=== PATIENT | female | born 1940 | race African-American/Black ===

== ENCOUNTER 2020-03-01 10:37 | Inpatient (IN) | payer MEDICARE, OTHER ==
[~2020-03-01] VITALS: Ht 170.2 cm; Wt 53.5 kg
[2020-03-01] VITALS (7 sets, daily range): BP systolic 99–150; BP diastolic 60–79
--- NOTE | 2020-03-01 10:37 | NUR ---
called dr walton regarding patient . dr boykin spoke to the primary md
--- NOTE | 2020-03-01 10:45 | NUR ---
ED Nurse Note: pt brought into ED from [facility] via RA 68 for AMS since this morning. Per EMS, pt had seizure en route lasting about 20 seconds. no medication were given en route. Blood glucose reads "HI" at scene.
--- NOTE | 2020-03-01 10:51 | Emergency Room Report ---
History of Present Illness General Chief Complaint: Altered Mental Status Source: Medical Record, EMS Present Illness HPI This patient is brought in from a halfway facility for being more altered than usual. She has a history of multiple chronic medical problems to include diabetes, malnutrition, failure to thrive, muscle wasting, nonambulatory , schizophrenia, coronary artery disease, deep venous thromboses, COPD and encephalopathy. The patient is unable to give any type of history. Allergies: Coded Allergies: No Known Allergies (Unverified , 03/01/20) COVID-19 Screening Contact w/high risk pt: No Recent Travel to affected area: No Experienced COVID-19 symptoms?: No Patient History Past Medical History: see triage record, old chart reviewed, DM, HTN, ME, CAD, COPD, GERD, CVA/TIA, dementia, psych hx - schizophrenia Social History: Denies: smoking, alcohol use, drug use Now: No Reviewed Nursing Documentation: PMH: Agreed; PSxH: Agreed Nursing Documentation-PMH Past Medical History: No History, Except For Hx Diabetes: Yes Review of Systems All Other Systems: negative except mentioned in HPI Physical Exam Vital Signs Date Time Temp Pulse Resp B/P (MAP) Pulse Ox O2 Delivery O2 Flow Rate FiO2 03/01/20 10:31 97.2 100 16 127/107 (114) 97 Room Air Sp02 EP Interpretation: reviewed, normal General Appearance: no apparent distress, alert, GCS 15, non-toxic, cachetic, other - elderly, cachectic, Chronically Ill Head: normocephalic, atraumatic Eyes: bilateral eye normal inspection ENT: no angioedema, other - grossly normal Neck: normal inspection, full range of motion Respiratory: chest non-tender, lungs clear, normal breath sounds, no respiratory distress, no retraction, no accessory muscle use, speaking full sentences Cardiovascular #1: regular rate, rhythm, no edema Gastrointestinal: normal bowel sounds, non tender, soft, non-distended, no guarding, no rebound Rectal: deferred Musculoskeletal: back normal, normal range of motion, calf tenderness, gait/ station normal, non-tender Neurologic: alert, responsive, other - Unsure of baseline. Psychiatric: mood/affect normal Skin: no rash, Decubitus/Ulcer - See RN skin exam Medical Decision Making Diagnostic Impression: Primary Impression: Altered mental status Additional Impressions: Hyperglycemic crisis due to diabetes mellitus Renal failure Pyelonephritis Coffee ground emesis ER Course This patient is found to be profoundly hyperglycemic. She also has pyelonephritis. She meets criteria for severe sepsis. She was given broad- spectrum antibiotics and aggressive IV fluid resuscitation. She had significant improvement in her blood sugar with aggressive hydration. She will be admitted to the ICU stepdown. She is also in COVID-19 precautions/droplet precautions given that she resides in a halfway facility which makes her high risk for this infection. This patient was evaluated in the context of the global COVID-19 pandemic, which necessitated consideration that the patient might be at risk for infection with the [id number]-4 virus that causes COVID-19. Institutional protocols and algorithms that pertain to the evaluation of patients at risk for COVID-19 and the state of rapid change based on information released by multiple regulatory bodies including the CDC and federal and state organizations. These policies and algorithms were followed during the patient' s care in the ED. This patient is critically ill. This patient required complex medical decision- making, aggressive intervention, extensive laboratory workup and monitoring. Critical care time: 40 minutes. Laboratory Tests Test 03/01/20 11:00 03/01/20 11:10 03/01/20 12:30 White Blood Count 18.7 K/UL (4.8-10.8) H Red Blood Count 6.08 M/UL (4.20-5.40) H Hemoglobin 16.3 G/DL (12.0-16.0) H Hematocrit 51.4 % (37.0-47.0) H Mean Corpuscular Volume 85 FL (80-99) Mean Corpuscular Hemoglobin 26.8 PG (27.0-31.0) L Mean Corpuscular Hemoglobin Concent 31.7 G/DL (32.0-36.0) L Red Cell Distribution Width 13.5 % (11.6-14.8) Platelet Count 273 K/UL (150-450) Mean Platelet Volume 9.1 FL (6.5-10.1) Neutrophils (%) (Auto) % (45.0-75.0) Lymphocytes (%) (Auto) % (20.0-45.0) Monocytes (%) (Auto) % (1.0-10.0) Eosinophils (%) (Auto) % (0.0-3.0) Basophils (%) (Auto) % (0.0-2.0) Differential Total Cells Counted 100 Neutrophils % (Manual) 82 % (45-75) H Lymphocytes % (Manual) 10 % (20-45) L Monocytes % (Manual) 8 % (1-10) Eosinophils % (Manual) 0 % (0-3) Basophils % (Manual) 0 % (0-2) Band Neutrophils 0 % (0-8) Platelet Estimate Adequate Platelet Morphology Normal Hypochromasia 1+ Sodium Level 143 MMOL/L (136-145) Potassium Level 5.0 MMOL/L (3.5-5.1) Chloride Level 101 MMOL/L (98-107) Carbon Dioxide Level 20 MMOL/L (21-32) L Anion Gap 22 mmol/L (5-15) H Blood Urea Nitrogen 63 mg/dL (7-18) H Creatinine 1.9 MG/DL (0.55-1.30) H Estimated Glomerular Filtration Rate 30.8 mL/min (>60) Glucose Level 861 MG/DL (74-106) *H Lactic Acid Level 5.10 mmol/L (0.4-2.0) H 3.00 mmol/L (0.66-2.22) H Calcium Level 9.6 MG/DL (8.5-10.1) Total Bilirubin 0.8 MG/DL (0.2-1.0) Aspartate Amino Transferase (AST) 31 U/L (15-37) Alanine Aminotransferase (ALT) 22 U/L (12-78) Alkaline Phosphatase 128 U/L (46-116) H Total Creatine Kinase 137 U/L (26-308) Creatine Kinase MB 0.7 NG/ML (0.0-3.6) Creatine Kinase MB Relative Index 0.5 Troponin I 0.000 ng/mL (0.000-0.056) Total Protein 8.9 G/DL (6.4-8.2) H Albumin 3.8 G/DL (3.4-5.0) Globulin 5.1 g/dL Albumin/Globulin Ratio 0.7 (1.0-2.7) L Urine Color Pale yellow Urine Appearance Cloudy Urine pH 5 (4.5-8.0) Urine Specific [place] 1.010 (1.005-1.035) Urine Protein 2+ (NEGATIVE) H Urine Glucose (UA) 4+ (NEGATIVE) H Urine Ketones 3+ (NEGATIVE) H Urine Blood 1+ (NEGATIVE) H Urine Nitrite Negative (NEGATIVE) Urine Bilirubin Negative (NEGATIVE) Urine Urobilinogen Normal MG/DL (0.0-1.0) Urine Leukocyte Esterase 3+ (NEGATIVE) H Urine RBC 20-30 /HPF (0 - 2) H Urine WBC Tntc /HPF (0 - 2) H Urine Squamous Epithelial Cells Few /LPF (NONE/OCC) Urine Bacteria Many /HPF (NONE) H EKG Diagnostic Results Rate: normal Rhythm: NSR ST Segments: other - NSST Rhythm Strip Diag. Results EP Interpretation: yes Rate: 90 Rhythm: NSR, no PVC's, no ectopy Chest X-Ray Diagnostic Results Chest X-Ray Diagnostic Results : Chest X-Ray Ordered: Yes # of Views/Limited/Complete: 1 View Indication: Chest Pain EP Interpretation: Yes Interpretation: no consolidation, no effusion, no pneumothorax, no acute cardiopulmonary disease Impression: No acute disease Electronically Signed by: Ashley Valenzuela DO Last Vital Signs Date Time Temp Pulse Resp B/P (MAP) Pulse Ox O2 Delivery O2 Flow Rate FiO2 03/01/20 10:31 97.2 100 16 127/107 (114) 97 Room Air Disposition: ADMITTED INPATIENT Condition: Critical Ashley Valenzuela DO Mar 01, 2020 10:51
[2020-03-01] MEDS ORDERED: ABILIFY2 MG ORAL (10:59)
[2020-03-01] MEDS ORDERED: MULTI-VITAMIN1 EACH PO (11:09)
[2020-03-01] MEDS ORDERED: LEVOTHYROXINE125 MCG ORAL (11:09)
[2020-03-01] MEDS ORDERED: MIRTAZAPINE7.5 MG ORAL (11:09)
[2020-03-01] MEDS ORDERED: PROBIOTIC1 EAC4 PO (11:09)
[2020-03-01] MEDS ORDERED: JANUVIA25 MG ORAL (11:09)
[2020-03-01] MEDS ORDERED: LOVENOX10 M4 SUBQ (11:09)
[2020-03-01] MEDS ORDERED: ATORVASTATIN CA20 MG ORAL (11:09)
[2020-03-01] MEDS ORDERED: ACETAMINOPHEN325 M1 ORAL (11:09)
[2020-03-01] MEDS ORDERED: METFORMIN HCL500 M1 ORAL (11:09)
[2020-03-01] MEDS ORDERED: LANTUS SOL100 UNIT/1 SUBQ (11:09)
[2020-03-01] MEDS ORDERED: VALPROIC A250 MG/5 M PO (11:13)
[2020-03-01] MEDS ORDERED: VITAMIN C500 M1 ORAL (11:13)
--- NOTE | 2020-03-01 11:21 | NUR ---
called patients public guardian peggy nora [phone] and left the message
--- NOTE | 2020-03-01 11:28 | NUR ---
ED Nurse Note: blood, urine, swab sample sent to lab
[2020-03-01 11:45] LABS: HEMATOCRIT 51.4 % (37.0-47.0); HEMOGLOBIN 16.3 G/DL (12.0-16.0); MEAN CORPUSCULAR VOLUME 85 FL (80-99); PLATELET COUNT 273 K/UL (150-450); RED BLOOD COUNT 6.08 M/UL (4.20-5.40); RED CELL DISTRIBUTION WIDTH 13.5 % (11.6-14.8); WHITE BLOOD COUNT 18.7 K/UL (4.8-10.8)
[2020-03-01 11:45] LABS: APPEARANCE,URINE CLOUDY; BILIRUBIN, URINE NEGATIVE (NEGATIVE); COLOR,URINE PALE YELLOW; GLUCOSE, URINE (UA) 4+ (NEGATIVE); KETONES,URINE 3+ (NEGATIVE); NITRITE,URINE NEGATIVE (NEGATIVE); PH,URINE 5 (4.5-8.0); PROTEIN,URINE 2+ (NEGATIVE); UROBILINOGEN,URINE NORMAL MG/DL (0.0-1.0)
[2020-03-01 12:00] LABS: LEUKOCYTE ESTERASE ,URINE 3+ (NEGATIVE)
[2020-03-01 12:01] LABS: ANION GAP 22 mmol/L (5-15); BLOOD UREA NITROGEN 63 mg/dL (7-18); CALCIUM 9.6 MG/DL (8.5-10.1); CARBON DIOXIDE 20 MMOL/L (21-32); CHLORIDE 101 MMOL/L (98-107); CREATININE 1.9 MG/DL (0.55-1.30); SODIUM 143 MMOL/L (136-145)
[2020-03-01 12:02] LABS: ALANINE AMINOTRANSFERASE 22 U/L (12-78); ALBUMIN 3.8 G/DL (3.4-5.0); ALBUMIN/GLOBULIN RATIO 0.7 (1.0-2.7); ALKALINE PHOSPHATASE 128 U/L (46-116); ASPARTATE AMINO TRANSFERASE 31 U/L (15-37); BILIRUBIN,TOTAL 0.8 MG/DL (0.2-1.0); CKMB 0.7 NG/ML (0.0-3.6); CREATINE KINASE 137 U/L (26-308)
--- NOTE | 2020-03-01 12:30 | NUR ---
ED Nurse Note: lactate reflex sent down to labs.
--- NOTE | 2020-03-01 13:01 | Diagnostic Imaging Report ---
Indication: Cough Technique: One view of the chest Comparison: none Findings: There is mild central bronchial wall thickening. Lungs and pleural spaces are otherwise clear. The heart size is normal. Impression: No acute process
[2020-03-01] MEDS ORDERED: Pantoprazole Inj IVP ONE (14:15)
[2020-03-01] MEDS ORDERED: Pantoprazole 80 MG in NS 250 ML IV ONE (14:15)
--- NOTE | 2020-03-01 14:48 | NUR ---
ED Nurse Note: Latest accucheck: 453mg/dl. Pt still on stable condition, AOx1, non-verbal, resposive to painful stimuli. VSS, on RA. Will continue to monitor.
--- NOTE | 2020-03-01 15:40 | NUR ---
ED Nurse Note: repeat bmp done, sent to labs.
[2020-03-01 16:32] LABS: ANION GAP 15 mmol/L (5-15); BLOOD UREA NITROGEN 42 mg/dL (7-18); CALCIUM 6.6 MG/DL (8.5-10.1); CARBON DIOXIDE 18 MMOL/L (21-32); CHLORIDE 118 MMOL/L (98-107); POTASSIUM 3.8 MMOL/L (3.5-5.1); SODIUM 151 MMOL/L (136-145)
--- NOTE | 2020-03-01 17:37 | NUR ---
ED Nurse Note: Pt on bed, awake and alert x 1, VSS, on RA; NAD. Will contine
--- NOTE | 2020-03-01 17:45 | History and Physical Report ---
DATE OF ADMISSION: 03/01/2020 REASON FOR ADMISSION: Pyelonephritis, acute renal failure, possible sepsis. HISTORY OF PRESENT ILLNESS: The patient is an 79-year-old female brought in from the emergency room. The patient noted to have significantly elevated sugars greater than 800. The patient also noted to be more altered than usual, has multiple medical problems including diabetes. The patient noted to have acute on chronic renal failure. The patient is nonambulatory, unable to give much more history. The patient also history of COPD. The patient care discussed. ER notes reviewed. Discussed with the ER physician and intermediate notes reviewed as well. The patient has no COVID related symptoms and laboratory data is significantly abnormal with renal failure, lactic acidemia, leukocytosis. Care discussed with the patient's primary doctor at the facility. The patient events appeared to be fairly acute overall. PAST MEDICAL HISTORY: Notable for diabetes, hypertension, PA, CAD, COPD, GERD, CVA, TIA, dementia, psych history, schizophrenia. SOCIAL HISTORY: Nonsmoker and nondrinker. The patient is a intermediate patient. REVIEW OF SYSTEMS: Unobtainable. FAMILY HISTORY: Not available. PHYSICAL EXAMINATION: GENERAL: An ill-appearing female, advanced age. VITAL SIGNS: Temperature 97.5, blood pressure 138/74, pulse 98, respiratory rate 24, sats are currently 98% on room air. HEENT: Negative. Mucous membranes are dry. NECK: Supple. No adenopathy. LUNGS: Moderate breath sounds. No rhonchi. CARDIAC: Regular rate and rhythm without murmurs, rubs, gallops. ABDOMEN: Soft, nontender, nondistended. EXTREMITIES: No edema. NEUROLOGIC: Confused, disoriented, weak overall. LABORATORY DATA: Reviewed. White count 8.7, hemoglobin 16.3, platelets normal. Chemistries noted and reviewed. Potassium is 5, BUN 63, creatinine 1.9, blood sugar is 861. IMPRESSION: 1. Diabetes out of control. 2. Hyperosmotic nonketotic state. 3. Lactic acidemia. 4. Metabolic acidosis. 5. Leukocytosis. 6. Possible sepsis. 7. Hemoconcentration. 8. COPD per history. No significant respiratory distress at this time. 9. History of CAD. Chest x-ray is negative. RECOMMENDATIONS: Supportive care. IV hydration aggressively. Renal evaluation. Resume intermediate medications. Sliding scale insulin adjust. Necessary care will be outlined and monitor clinically for further changes. NPO except medications for now and will reassess and recommend further as needed and consider insulin management after discharge for diabetic management. Russell Goyal M.D. DR: Elinor JOB#: [id number] CC:
--- NOTE | 2020-03-01 18:30 | NUR ---
NURSE NOTES: Received report from MAGALI Meade from ER. Per RN pt had x 1 coffee ground emesis, ER MD started pt on Protonix drip. Pt had blood glucose of 800s mg/dL, last reassessment of blood sugar at 1400 hours was 400s mg/dL. Noted. Pt swabbed for COVID-19 for rule out. Awaiting transport to [address] [place] [address].
--- NOTE | 2020-03-01 18:50 | NUR ---
NURSE NOTES: Patient delivered to unit via gurney, accompanied by transporter and MAGALI Meade. Pt had face mask and blanket cover upon transport to room air. Pt on room air, no SOB, noted. Pt is nonverbal. Observed no presence of pain. Transferred to striker bed, placed in low position, brakes engaged. Call light placed within reach.
--- NOTE | 2020-03-01 18:50 | NUR ---
TRANSFER TO FLOOR: Patient transferred to SDU as ordered, per Dr. Goyal. Report given to Matt DE LOS SANTOS. Belongings and medications given to receiving nurse. Family and or S/O informed of transfer.
--- NOTE | 2020-03-01 19:30 | NUR ---
HAND-OFF: Report given to MAGALI Faulkner.
--- NOTE | 2020-03-01 19:35 | NUR ---
NURSE NOTES: Received pt from Kyung Harvey RN. pt observed in bed, AO X1, disoriented, nonverbal, unable to make needs known. no s/sx of pain noted at this time. pt is on room air, saturation: 95% at this time. no s/sx of respiratory distress noted. groundwater monitoring technician shows ST with HR of 103. no acute cardiac distress noted. skin alterations noted. RAC 22 G IV site is patent and intact, asymptomatic. bed in lowest position and locked, siderails up X3, call light within reach. all needs attended to; will continue to monitor.
--- NOTE | 2020-03-01 20:00 | NUR ---
NURSE NOTES: contacted Dr. Goyal regarding diet order and lactic acid reflex of 3.00. received new orders. noted and will carry out.
[2020-03-01] MEDS: 1/2NS w/KCl 20mEq 1000ml 1,000 ML IV SCH (20:22)
[2020-03-01] MEDS ORDERED: Vancomycin 1.25gm/NS Premix IVPB ONE (21:00)
[2020-03-01] MEDS: Atorvastatin 20mg tab ORAL SCH (22:13)
[2020-03-01] MEDS: Piperacillin/Tazobactam 3.375 GM in NS 110 ML IVPB SCH (22:13)
[2020-03-01] MEDS: Levemir Flexpen SUBQ SCH (22:15)
[2020-03-01] MEDS: NovoLOG Insulin Flexpen SUBQ SCH (22:16)
[2020-03-02] VITALS: BP 138/89
--- NOTE | 2020-03-02 00:10 | NUR ---
NURSE NOTES: RAC 22 g IV site noted to be leaking. new IV inserted: RW 24 G patent and intact, currently running 1/2 NS with 20 meq KCl at 150 cc/hr and zosyn at 27.5 ml/hr. will continue to monitor.
[2020-03-02] MEDS ORDERED: Albuterol 90mcg Inhaler 8gm INH PRN (02:00)
[2020-03-02] MEDS: 1/2NS w/KCl 20mEq 1000ml 1,000 ML IV SCH ×4 (02:38→21:54)
[2020-03-02 04:00] VITALS: BP 160/87
[2020-03-02] MEDS: NovoLOG Insulin Flexpen SUBQ SCH ×4 (06:30→21:00)
[2020-03-02] MEDS: Piperacillin/Tazobactam 3.375 GM in NS 110 ML IVPB SCH ×3 (06:43→21:54)
--- NOTE | 2020-03-02 07:33 | NUR ---
NURSE NOTES: Received report from Lucie DE LOS SANTOS. Pt in bed awake but confused. Unable to make needs known and unable to follow the simple direction. No c/o pain. Sating 94% on room air. IV in right wrist 24G running with 1/2NS+KCL 20mEq @150ml/hr patent and intact. Bed in lowest position and locked. Side railsx3 up for safety. On female external cath, leaking. Will change a new cath. Will continue to plan of care.
--- NOTE | 2020-03-02 07:33 | NUR ---
HAND-OFF: Report given to MAGALI Velarde. endorsed plan of care.
[2020-03-02 08:00] VITALS: BP_SYST 131; BP_SYST 135; BP_DIAS 77; BP_DIAS 79
--- NOTE | 2020-03-02 08:59 | Consultation ---
DATE OF CONSULTATION: 03/02/2020 CHIEF COMPLAINT: Coffee-ground emesis. HISTORY OF PRESENT ILLNESS: The patient is an 79-year-old female brought from the [place] [facility]. The patient is a very poor historian. She had a very high sugar in 800 range on the day of admission. Apparently, she had one episode of coffee-grounds emesis that is why GI consult requested for evaluation. PAST MEDICAL HISTORY: 1. History of diabetes. 2. Hypertension. 3. Coronary artery disease and myocardial infarction. 4. COPD. 5. GERD. 6. CVA. 7. Dementia. 8. Psychiatric disorder including schizophrenia. PAST SURGICAL HISTORY: Unknown. ALLERGIES: No known drug allergies. MEDICATIONS: Please see medication reconciliation list. SOCIAL HISTORY: Currently lives in a [place] [facility]. No history of tobacco, alcohol, or drug abuse. FAMILY HISTORY: Noncontributory. REVIEW OF SYSTEMS: Unable to obtain. PHYSICAL EXAMINATION: VITAL SIGNS: Temperature 97.7, pulse 103, respirations 24, blood pressure 160/87. HEENT: Normocephalic and atraumatic. Sclerae anicteric. NECK: Supple. No evidence of obvious lymphadenopathy. CARDIOVASCULAR: Tachycardiac. Regular . Plus S1 and S2. LUNGS: Decreased breath sounds bilaterally based on the supine exam. ABDOMEN: Soft, nontender. No rebound. No guarding. No peritoneal sign. EXTREMITIES: No cyanosis. No clubbing. No edema. LABORATORY AND DIAGNOSTIC DATA: White count is 18,000, hemoglobin 16, platelet count is 273. Chem-7, sodium 161, potassium 3.8, BUN is 42, creatinine is 1.0, glucose on admission 861. ASSESSMENT AND PLAN: The patient is an 79-year-old female with diabetes out of control most probably came to the hospital with gastroparesis and vomiting, questionable coffee-grounds emesis. Hemoglobin , although, the patient is dehydrated. PLAN: Continue on Protonix. Monitor CBC. Send the stool for OB. Hold the GI procedure unless if needed. Given the patient's mental status, we are going to order swallow evaluation for her. I want to thank, Dr. Russell Goyal, for this kind referral. Pollo Konstantin Hoover DR: Gerber JOB#: [id number] CC: Russell Goyal M.D.; Fax#: [phone]
[2020-03-02] MEDS: sitaGLIPtin 50mg tab ORAL SCH (09:00)
[2020-03-02] MEDS: Ascorbic Acid 500mg tab ORAL SCH ×2 (09:00→09:09)
[2020-03-02] MEDS: Pantoprazole Inj IVP SCH ×2 (09:09→21:53)
[2020-03-02] MEDS: Enoxaparin 40mg Inj SUBQ SCH (09:12)
[2020-03-02 10:19] LABS: BASOPHILS % (AUTO) 0.4 % (0.0-2.0); HEMATOCRIT 41.8 % (37.0-47.0); HEMOGLOBIN 13.7 G/DL (12.0-16.0); LYMPHOCYTES % (AUTO) 8.4 % (20.0-45.0); MEAN CORPUSCULAR VOLUME 80 FL (80-99); MONOCYTES % (AUTO) 9.5 % (1.0-10.0); NEUTROPHILS % (AUTO) 81.7 % (45.0-75.0); PLATELET COUNT 242 K/UL (150-450); RED CELL DISTRIBUTION WIDTH 12.9 % (11.6-14.8)
[2020-03-02 10:45] LABS: ALANINE AMINOTRANSFERASE 16 U/L (12-78); ALBUMIN 2.9 G/DL (3.4-5.0); ALBUMIN/GLOBULIN RATIO 0.7 (1.0-2.7); ALKALINE PHOSPHATASE 103 U/L (46-116); ANION GAP 15 mmol/L (5-15); ASPARTATE AMINO TRANSFERASE 23 U/L (15-37); BILIRUBIN,TOTAL 0.4 MG/DL (0.2-1.0); BLOOD UREA NITROGEN 33 mg/dL (7-18); CALCIUM 8.3 MG/DL (8.5-10.1); CARBON DIOXIDE 21 MMOL/L (21-32); CHLORIDE 122 MMOL/L (98-107); PHOSPHORUS 2.3 MG/DL (2.5-4.9); POTASSIUM 4.5 MMOL/L (3.5-5.1); SODIUM 158 MMOL/L (136-145)
--- NOTE | 2020-03-02 11:07 | NUR ---
RD ASSESSMENT & RECOMMENDATIONS SEE CARE ACTIVITY FOR COMPLETE ASSESSMENT DAILY ESTIMATED NEEDS: Needs based on Wounds/ 57kg 25-30 kcals/kg 2857-2252 total kcals 1.25-1.5 g protein/kg 71-85 g total protein 25-30 mL/kg 6766-3937 total fluid mLs NUTRITION DIAGNOSIS: Increased kcal/prot needs R/T wound healing as evidenced by admitted w/ multiple wounds, pending evaluation, NPO at this time, pending FLAT LOCK OPERATOR evaluation. CURRENT DIET:NPO PO DIET RECOMMENDATIONS: CCHO LOW/ texture per FLAT LOCK OPERATOR ADDITIONAL RECOMMENDATIONS: * Per SNF ba=520icd on 02/17/20 -> obtain calibrated bedscale wt * Monitor BGs closely, need for additional hypoglycemics * Monitor lytes, replete as needed * F/u w/ FLAT LOCK OPERATOR rec- NPO at this time pending FLAT LOCK OPERATOR eval * Wound care: continue MVI + Vit C Hugo BID as tolerated w/ diet order
--- NOTE | 2020-03-02 11:09 | NUR ---
NURSE NOTES: Made Dr. Estevez aware of abnormal blood test results. No new orders received at this time.
[2020-03-02 12:05] VITALS: BP 140/74
--- NOTE | 2020-03-02 13:16 | General Progress Note ---
Assessment/Plan Problem List: (1) Pyelonephritis ICD Codes: N12 - Tubulo-interstitial nephritis, not specified as acute or chronic SNOMED: 46696408, 92092408 (2) Renal failure ICD Codes: N19 - Unspecified kidney failure SNOMED: 91120563, 57305917 (3) Coffee ground emesis ICD Codes: K92.0 - Hematemesis SNOMED: 08452251, 43299458 (4) Hyperglycemic crisis due to diabetes mellitus ICD Codes: E11.65 - Type 2 diabetes mellitus with hyperglycemia SNOMED: 771502700, 28811411 (5) Altered mental status ICD Codes: R41.82 - Altered mental status, unspecified SNOMED: 724228137 Status: stable, not improved Assessment/Plan: Continue IV hydration. Insulin sliding scale. Monitor Accu-Cheks. Tube feeds IV antibiotics for UTI and sepsis Follow-up pending cultures DVT and stress ulcer prophylaxis Turn every 2 hours Monitor labs and volume status electrolytes and renal function Subjective ROS Limited/Unobtainable: Yes Constitutional: Reports: malaise, weakness HEENT: Reports: no symptoms Cardiovascular: Reports: no symptoms Respiratory: Reports: no symptoms Gastrointestinal/Abdominal: Reports: no symptoms Genitourinary: Reports: no symptoms Neurologic/Psychiatric: Reports: pre-existing deficit Endocrine: Reports: no symptoms Hematologic/Lymphatic: Reports: no symptoms Allergies: Coded Allergies: No Known Allergies (Unverified , 03/01/20) All Systems: reviewed and negative except above Subjective no events. poorly responsive and confused, does not follow commands. gaetano RN. no fevers. currently isolated. on abx for uti and ivf + feeds Objective Last 24 Hour Vital Signs Date Time Temp Pulse Resp B/P (MAP) Pulse Ox O2 Delivery O2 Flow Rate FiO2 03/02/20 12:05 97.0 85 21 140/74 (96) 95 03/02/20 12:00 Room Air 03/02/20 11:48 86 03/02/20 08:00 87 03/02/20 08:00 Room Air 03/02/20 08:00 97.0 95 21 131/77 (95) 94 03/02/20 04:00 Room Air 03/02/20 04:00 101 03/02/20 04:00 97.7 103 24 160/87 (111) 94 03/02/20 00:00 97.6 99 24 138/89 (105) 94 03/02/20 00:00 Room Air 03/01/20 23:41 100 03/01/20 20:13 105 03/01/20 20:00 Room Air 03/01/20 20:00 97.2 109 24 135/79 (97) 95 03/01/20 19:28 Room Air 03/01/20 19:25 96.8 103 22 150/79 (102) 94 03/01/20 18:50 97.5 95 24 150/76 98 Room Air 03/01/20 17:10 97.5 98 24 150/76 98 Room Air 03/01/20 15:25 97.5 99 22 146/77 98 Room Air 03/01/20 13:39 97.5 98 24 138/74 98 Room Air Intake and Output 03/01/20 03/02/20 19:00 07:00 Intake Total 1992.79 ml Balance 1992.79 ml Intake IV Total 1992.79 ml # Voids 1 Laboratory Tests 03/01/20 15:42: Sodium Level 151H, Potassium Level 3.8, Chloride Level 118H, Carbon Dioxide Level 18L, Anion Gap 15, Blood Urea Nitrogen 42H, Creatinine 1.0, Estimat Glomerular Filtration Rate > 60, Glucose Level 434#H, Calcium Level 6.6#L 03/02/20 09:43: Sodium Level 158H, Potassium Level 4.5, Chloride Level 122H, Carbon Dioxide Level 21, Anion Gap 15, Blood Urea Nitrogen 33H, Creatinine 1.0, Estimat Glomerular Filtration Rate > 60, Glucose Level 234#H, Calcium Level 8.3#L, White Blood Count 16.0H, Red Blood Count 5.20, Hemoglobin 13.7, Hematocrit 41.8 , Mean Corpuscular Volume 80, Mean Corpuscular Hemoglobin 26.4L, Mean Corpuscular Hemoglobin Concent 32.8, Red Cell Distribution Width 12.9, Platelet Count 242, Mean Platelet Volume 8.3, Neutrophils (%) (Auto) 81.7H, Lymphocytes ( %) (Auto) 8.4L, Monocytes (%) (Auto) 9.5, Eosinophils (%) (Auto) 0.0, Basophils (%) (Auto) 0.4, Lactic Acid Level 1.40, Phosphorus Level 2.3L, Magnesium Level 2.4, Total Bilirubin 0.4, Aspartate Amino Transf (AST/SGOT) 23, Alanine Aminotransferase (ALT/SGPT) 16, Alkaline Phosphatase 103, Total Protein 7.0, Albumin 2.9L, Globulin 4.1, Albumin/Globulin Ratio 0.7L, Thyroid Stimulating Hormone (TSH) 4.329H Height (Feet): 5 Height (Inches): 7.00 Weight (Pounds): 115 General Appearance: WD/WN, lethargic, confused EENT: normal ENT inspection Neck: supple Cardiovascular: normal rate, regular rhythm Respiratory/Chest: chest wall non-tender, lungs clear, normal breath sounds, no respiratory distress Abdomen: normal bowel sounds, non tender, soft, no organomegaly, no mass Edema: no edema noted Arm (L), no edema noted Arm (R), no edema noted Leg (L), no edema noted Leg (R), no edema noted Pedal (L), no edema noted Pedal (R), no edema noted Generalized Neurologic: disoriented, aphasia Skin: normal pigmentation Larry Martinez MD Mar 02, 2020 13:16
[2020-03-02 15:44] VITALS: BP 140/94
--- NOTE | 2020-03-02 15:46 | NUR ---
NURSE NOTES: Made Dr. Martinez aware of pt on Lovenox SQ QD. No new order received.
--- NOTE | 2020-03-02 17:59 | Consultation ---
DATE OF CONSULTATION: 03/02/2020 INFECTIOUS DISEASES CONSULTATION CONSULTING PHYSICIAN: Clau Tinsley M.D. REFERRING PHYSICIAN: Russell Goyal M.D. REASON FOR CONSULTATION: Pyelonephritis. HISTORY OF PRESENTING ILLNESS: This is an 79-year-old lady with history of diabetes, renal failure, COPD, who came in with renal failure. There was a concern for pyelonephritis and also a concern for possibility of COVID-19 pneumonia and Infectious Diseases consultation has been obtained for antibiotics. PAST MEDICAL HISTORY: 1. History of diabetes. 2. Hypertension. 3. Myocardial infarction. 4. Coronary artery disease. 5. COPD. 6. GERD. 7. CVA. 8. Schizophrenia. 9. Dementia. SOCIAL HISTORY: She does not smoke, drink, or use drugs. FAMILY HISTORY: Unknown. REVIEW OF SYSTEMS: Unable to obtain currently. MEDICATIONS: As an inpatient, she is on IV vancomycin, Abilify, ascorbic acid, Lovenox, multivitamin, Januvia, Protonix, levothyroxine, albuterol, Zosyn, insulin, atorvastatin, Remeron, Mylanta, cefepime, Tylenol. ALLERGIES: No known drug allergies. PHYSICAL EXAMINATION: VITAL SIGNS: Temperature of 97, T-max of 97.7, pulse of 87, respiratory rate of 21, blood pressure of 131/77, O2 saturation of 94%. Examination deferred due to possibility of COVID-19. LABORATORY AND DIAGNOSTIC DATA: White count 16, hemoglobin 13.7, hematocrit 41.8, MCV 80, platelet count 242 with neutrophils of 81%. Sodium 151, potassium 3.8, chloride 118, bicarb 18, BUN 42, creatinine 1, glucose 434, calcium 6.6. UA showing too numerous to count white cells. AST 31, ALT 22, alkaline phosphatase 128. CK-MB 0.7, troponin 0, total protein 8.9, albumin 3.8. Urine culture showing gram-negative rods. Chest x-ray was unremarkable. ASSESSMENT: This is an 79-year-old lady with history of diabetes, hypertension, myocardial infarction, COPD, dementia, who comes in and was found to have: 1. Gram-negative urinary tract infection. 2. Diabetes. 3. Hypertension. 4. Rule out COVID-19 pneumonia. 5. COPD. PLAN: 1. Continue Zosyn. 2. Discontinue IV vancomycin and cefepime. 3. Continue isolation. 4. We will follow the patient clinically. I would like to thank, Dr. Goyal for this consultation. Clau Tinsley M.D. DR: KENYA JOB#: [id number] CC: Russell Goyal M.D.; Fax#: [phone]
--- NOTE | 2020-03-02 19:05 | NUR ---
NURSE NOTES: Pt report received from MIN RN. pt remains stable. pt is obtunded neuro coppola, no acute neuro abnormalities noted. pt is on phototypesetting equipment monitor showing NSR, no acute cardiac abnormalities noted. pt is on room air sating at 95% O2, no acute resp distress noted. pt bed is low, locked, armed, call light within reach, bed rails up times 3. will follow plan of care.
--- NOTE | 2020-03-02 19:13 | NUR ---
HAND-OFF: Report given to Matt DE LOS SANTOS. Pt remains stable.
[2020-03-02 20:00] VITALS: BP 155/84
--- NOTE | 2020-03-02 20:30 | Consultation ---
DATE OF CONSULTATION: 03/02/2020 CONSULTING PHYSICIAN: Jose Martin Estevez MD. REFERRING PHYSICIAN: Russell Goyal MD. REASON FOR CONSULTATION: Elevated BUN and creatinine. HISTORY OF PRESENT ILLNESS: This is an 79-year-old lady, resident of an [facility] presents with lethargy and glucose over 800 and elevated BUN and creatinine. There are notes saying that she had prior chronic kidney disease, diabetes, hypertension, prior [place], COPD, GERD, CVA, TIA, dementia, psychiatric problems likely schizophrenia. HABITS: She is a nondrinker and nonsmoker. MEDICATIONS: At the [facility] are reviewed include the following, Abilify, atorvastatin, Humalog 10 units t.i.d., Januvia, lactobacillus, Lantus 12 units daily, levothyroxine, Lovenox, metformin, mirtazapine, multivitamin, Tylenol, valproic acid, and vitamin D. PAST HISTORY AND REVIEW OF SYSTEMS: The patient is unable. PHYSICAL EXAMINATION: GENERAL: The patient is lying in bed, eyes closed, unresponsive. VITAL SIGNS: Temperature 97, pulse 95, blood pressure 131/77, respirations 21. HEAD, EYES, EARS, NOSE, AND THROAT: Eyes are closed. NECK: No adenopathy. LUNGS: Mild tachypnea. No rales or rhonchi. HEART: Rhythm is regular. ABDOMEN: Soft. No focal tenderness. EXTREMITIES: No edema. PERTINENT LABORATORY AND DIAGNOSTIC DATA: Admission white count 18.7, hemoglobin 16.3. Admission sodium 153, potassium 5, chloride 101, CO2 20, BUN 63, creatinine 1.7, glucose 861. Repeat laboratories most recent sodium 158, potassium 4.5, chloride 122, CO2 21, BUN 33, creatinine 1. Lactic acid has gone from 5.1 to 1.4. Albumin is 2.9. TSH 4.39. Total CK 137. Urinalysis shows 20 to 30 red cells and too numerous to count white cells per high-power field. Urine culture is growing gram-negative rods. Chest x-ray done shows no acute process. IMPRESSION: 1. Uncontrolled diabetes. 2. Pyuria and urinary tract infection. 3. Acute kidney injury likely from dehydration. 4. History of chronic kidney disease. 5. Advanced dementia. PLAN: The patient will be hydrated, insulin regimen given, start on empiric antibiotics for UTI. Followup on her renal function. She is also hypernatremic and will start with half normal saline and expect to gradually improve her electrolytes over 48 to 72 hours. Jose Martin Estevez M.D. DR: Mike JOB#: [id number] CC:
[2020-03-02] MEDS ORDERED: Vancomycin 750mg/NS 275ml IVPB SCH ×2 (21:00)
[2020-03-02] MEDS: Atorvastatin 20mg tab ORAL SCH (21:54)
[2020-03-02] MEDS: Levemir Flexpen SUBQ SCH (21:57)
--- NOTE | 2020-03-02 22:34 | Pulmonology Progress Note ---
Assessment/Plan Assessment/Plan Pulmonary Progress Note HPI: The patient is an 79-year-old woman admitted with Pyelonephritis, significantly elevated sugars greater than 800. The patient also noted to be more altered than usual, has multiple medical problems including diabetes. The patient noted to have acute on chronic renal failure. The patient is nonambulatory, unable to give much more history. The patient also history of COPD. The patient care discussed. ER notes reviewed. Discussed with the ER physician and [facility] notes reviewed as well. The patient has no COVID related symptoms and laboratory data is significantly abnormal with renal failure, lactic acidemia, leukocytosis. Care discussed with the patient's primary doctor at the facility. The patient events appeared to be fairly acute overall. PAST MEDICAL HISTORY: Notable for diabetes, hypertension, [place], CAD, COPD, GERD, CVA, TIA, dementia, psych history, schizophrenia. PHYSICAL EXAMINATION: GENERAL: An ill-appearing female, advanced age. VITAL SIGNS NOTED HEENT: Negative. Mucous membranes are dry. NECK: Supple. No adenopathy. LUNGS: Moderate breath sounds. No rhonchi. CARDIAC: Regular rate and rhythm without murmurs, rubs, gallops. ABDOMEN: Soft, nontender, nondistended. EXTREMITIES: No edema. NEUROLOGIC: Confused, disoriented, weak overall. LABORATORY DATA: Reviewed. White count 8.7, hemoglobin 16.3, platelets normal. Chemistries noted and reviewed. Potassium is 5, BUN 63, creatinine 1.9, blood sugar is 861. IMPRESSION: 1. Diabetes out of control. 2. Hyperosmotic nonketotic state. 3. Lactic acidemia. 4. Metabolic acidosis. 5. Leukocytosis. 6. Possible sepsis. 7. Hemoconcentration. 8. COPD per history. No significant respiratory distress at this time. 9. History of CAD. PLAN: Supportive care. IV hydration aggressively. Renal evaluation. Resume [facility] medications. Sliding scale insulin adjust. Necessary care will be outlined and monitor clinically for further changes. NPO except medications for now and will reassess and recommend further as needed and consider insulin management after discharge for diabetic management. Labs noted Chest x-ray is negative. Subjective ROS Limited/Unobtainable: No Allergies: Coded Allergies: No Known Allergies (Unverified , 03/01/20) Objective Last 24 Hour Vital Signs Date Time Temp Pulse Resp B/P (MAP) Pulse Ox O2 Delivery O2 Flow Rate FiO2 03/02/20 15:49 Room Air 03/02/20 15:44 97.1 87 18 140/94 (109) 94 03/02/20 15:13 75 03/02/20 12:05 97.0 85 21 140/74 (96) 95 03/02/20 12:00 Room Air 03/02/20 11:48 86 03/02/20 08:00 87 03/02/20 08:00 Room Air 03/02/20 08:00 97.0 95 21 131/77 (95) 94 03/02/20 04:00 Room Air 03/02/20 04:00 101 03/02/20 04:00 97.7 103 24 160/87 (111) 94 03/02/20 00:00 97.6 99 24 138/89 (105) 94 03/02/20 00:00 Room Air 03/01/20 23:41 100 Intake and Output 03/01/20 03/02/20 19:00 07:00 Intake Total 1992.79 ml Balance 1992.79 ml Intake IV Total 1992.79 ml # Voids 1 Microbiology Date/Time Source Procedure Growth Status 03/01/20 11:10 Urine,Clean Catch Urine Culture - Preliminary Gram Negative Ron Resulted 03/01/20 13:00 Rectum Received Laboratory Tests 03/02/20 09:43: White Blood Count 16.0H, Red Blood Count 5.20, Hemoglobin 13.7, Hematocrit 41.8 , Mean Corpuscular Volume 80, Mean Corpuscular Hemoglobin 26.4L, Mean Corpuscular Hemoglobin Concent 32.8, Red Cell Distribution Width 12.9, Platelet Count 242, Mean Platelet Volume 8.3, Neutrophils (%) (Auto) 81.7H, Lymphocytes ( %) (Auto) 8.4L, Monocytes (%) (Auto) 9.5, Eosinophils (%) (Auto) 0.0, Basophils (%) (Auto) 0.4, Sodium Level 158H, Potassium Level 4.5, Chloride Level 122H, Carbon Dioxide Level 21, Anion Gap 15, Blood Urea Nitrogen 33H, Creatinine 1.0, Estimat Glomerular Filtration Rate > 60, Glucose Level 234#H, Lactic Acid Level 1.40, Calcium Level 8.3#L, Phosphorus Level 2.3L, Magnesium Level 2.4, Total Bilirubin 0.4, Aspartate Amino Transf (AST/SGOT) 23, Alanine Aminotransferase ( ALT/SGPT) 16, Alkaline Phosphatase 103, Total Protein 7.0, Albumin 2.9L, Globulin 4.1, Albumin/Globulin Ratio 0.7L, Thyroid Stimulating Hormone (TSH) 4.329H Current Medications Medications (Trade) Dose Ordered Sig/Roberto Route PRN Reason Start Time Stop Time Status Last Admin Dose Admin Acetaminophen (Tylenol) 650 mg Q4H PRN ORAL mild pain/fever 03/01/20 18:30 03/31/20 18:29 Al Hydroxide/Mg Hydroxide (Mylanta) 30 ml Q4HR PRN ORAL Constipation 03/01/20 20:15 03/31/20 20:14 Albuterol Sulfate (Proventil MDI) 2 puff Q4H PRN INH Shortness of Breath 03/02/20 02:00 05/31/20 01:59 Aripiprazole (Abilify) 5 mg DAILY ORAL 03/02/20 09:00 04/16/20 08:59 Ascorbic Acid (Vitamin C) 500 mg DAILY ORAL 03/02/20 09:00 04/01/20 08:59 Atorvastatin Calcium (Lipitor) 20 mg BEDTIME ORAL 03/01/20 21:00 05/30/20 20:59 03/02/20 21:54 Dextrose (Dextrose 50%) 25 ml Q30M PRN IV Hypoglycemia 03/01/20 18:30 05/30/20 18:29 Dextrose (Dextrose 50%) 50 ml Q30M PRN IV Hypoglycemia 03/01/20 18:30 05/30/20 18:29 Enoxaparin Sodium (Lovenox) 40 mg DAILY SUBQ 03/02/20 09:00 05/31/20 08:59 03/02/20 09:12 Insulin Aspart (NovoLOG) BEFORE MEALS AND HS SUBQ 03/01/20 21:00 05/30/20 20:59 03/02/20 12:14 Insulin Detemir (Levemir) 20 units BEDTIME SUBQ 03/01/20 21:00 05/30/20 20:59 03/02/20 21:57 Levothyroxine Sodium (Synthroid) 150 mcg 0630 ORAL 03/02/20 06:30 04/01/20 06:29 Mirtazapine (Remeron) 7.5 mg BEDTIME ORAL 03/01/20 21:00 05/30/20 20:59 03/02/20 21:53 Multivitamins (Multivitamins) 1 tab DAILY ORAL 03/02/20 09:00 04/01/20 08:59 Pantoprazole (Protonix) 40 mg EVERY 12 HOURS IVP 03/02/20 09:00 04/01/20 08:59 03/02/20 21:53 Piperacillin Sod/ Tazobactam Sod 3.375 gm/Sodium Chloride 110 ml @ 27.5 mls/hr Q8HR IVPB 03/01/20 22:00 03/08/20 21:59 03/02/20 21:54 Sitagliptin Phosphate (Januvia) 100 mg DAILY ORAL 03/02/20 09:00 04/01/20 08:59 Sodium 1,000 ml @ 150 mls/hr Q6H40M IV 03/01/20 20:00 03/31/20 19:59 03/02/20 21:54 Rory Rubi MD Mar 02, 2020 22:34
[2020-03-03] VITALS: BP 148/79
[2020-03-03 04:00] VITALS: BP 153/74
--- NOTE | 2020-03-03 05:30 | Progress Note ---
DATE: 03/02/2020 CARDIOLOGY PROGRESS NOTE SUBJECTIVE: Patient remains withdrawn, lethargic. Episodes of atrial fibrillation with increased ventricular response were noted overnight. The patient has converted back to sinus rhythm today. She is not following commands or verbally can respond at this time. PHYSICAL EXAMINATION: VITAL SIGNS: Blood pressure 140/74, heart rate 85, respiratory rate 21, afebrile. LUNGS: Bilateral breath sounds. CARDIAC: Regular rhythm and rate. Normal S1, S2 with a 1/6 systolic apical murmur. ABDOMEN: Soft. EXTREMITIES: Trace edema. LABORATORY DATA: Urine culture is positive for gram-negative joyce. Sodium is 158, potassium 4.5, chloride 122, bicarb 21, BUN 33, and creatinine 1. Glucose 234. Lactic acid has corrected from a high of 5.1 to 1.4 today, phosphorus 2.3, magnesium 2.4, albumin 2.9, and TSH 4.3. IMPRESSION: 1. Severe dehydration and hypernatremia with hyperchloremia. 2. Paroxysmal atrial fibrillation with increased ventricular rate response. 3. Moderate protein-calorie malnutrition. 4. Type 2 diabetes mellitus with hyperglycemia. 5. Resolved lactic acidosis. 6. Urinary tract infection with sepsis. 7. Toxic and metabolic encephalopathies. 8. Hypertensive heart disease. PLAN: 1. Check troponin level. 2. Follow up electrolytes. 3. Continue hypotonic IV fluids. 4. Phosphorus replacement. 5. Would not initiate anticoagulation at this time unless prolonged atrial fibrillation episodes are noted despite correction of electrolyte abnormalities. Rory Dickson M.D. DR: AMY JOB#: [id number] CC:
[2020-03-03] MEDS: 1/2NS w/KCl 20mEq 1000ml 1,000 ML IV SCH ×3 (06:17→21:01)
[2020-03-03] MEDS: Piperacillin/Tazobactam 3.375 GM in NS 110 ML IVPB SCH (06:18)
[2020-03-03] MEDS: NovoLOG Insulin Flexpen SUBQ SCH ×4 (06:19→21:00)
--- NOTE | 2020-03-03 07:10 | NUR ---
HAND-OFF: Report given to MIN RN. Pt remains stable.
--- NOTE | 2020-03-03 07:10 | NUR ---
NURSE NOTES: Received report from Matt RN. Pt in bed awake and orientedx1 and asked for food and water. Will verify with Dr. Martinez for diet orders. Denied pain. IV site in right hand 24G with some blood around IV site and running with 1/2NS w/Kcl 20mEq @150ml/hr patent and asymptomatic. Bed in lowest position and locked. Side railsx3 up for safety. Will continue to plan of care.
[2020-03-03 08:00] VITALS: BP 151/69
[2020-03-03] MEDS ORDERED: D5 1/2NS w/KCl 20mEq 1,000 ML IV SCH (08:00)
[2020-03-03 08:22] LABS: BASOPHILS % (AUTO) 0.7 % (0.0-2.0); EOSINOPHILS % (AUTO) 0.5 % (0.0-3.0); HEMATOCRIT 45.5 % (37.0-47.0); HEMOGLOBIN 15.2 G/DL (12.0-16.0); LYMPHOCYTES % (AUTO) 12.1 % (20.0-45.0); MEAN CORPUSCULAR VOLUME 81 FL (80-99); MONOCYTES % (AUTO) 6.7 % (1.0-10.0); PLATELET COUNT 270 K/UL (150-450); RED BLOOD COUNT 5.64 M/UL (4.20-5.40); RED CELL DISTRIBUTION WIDTH 13.3 % (11.6-14.8); WHITE BLOOD COUNT 13.1 K/UL (4.8-10.8)
[2020-03-03 08:44] LABS: ALANINE AMINOTRANSFERASE 24 U/L (12-78); ALBUMIN 3.1 G/DL (3.4-5.0); ALBUMIN/GLOBULIN RATIO 0.6 (1.0-2.7); ALKALINE PHOSPHATASE 110 U/L (46-116); AMYLASE 112 U/L (25-115); ANION GAP 14 mmol/L (5-15); ASPARTATE AMINO TRANSFERASE 42 U/L (15-37); BILIRUBIN,TOTAL 0.7 MG/DL (0.2-1.0); BLOOD UREA NITROGEN 17 mg/dL (7-18); CARBON DIOXIDE 20 MMOL/L (21-32); CHLORIDE 118 MMOL/L (98-107); CREATININE 0.9 MG/DL (0.55-1.30); POTASSIUM 4.6 MMOL/L (3.5-5.1); SODIUM 152 MMOL/L (136-145)
[2020-03-03] MEDS: Ascorbic Acid 500mg tab ORAL SCH (09:00)
[2020-03-03] MEDS: sitaGLIPtin 50mg tab ORAL SCH (09:00)
[2020-03-03] MEDS: Pantoprazole Inj IVP SCH ×2 (09:16→20:54)
[2020-03-03] MEDS: Enoxaparin 40mg Inj SUBQ SCH (09:16)
--- NOTE | 2020-03-03 09:44 | NUR ---
NURSE NOTES: Dr. Tinsley paged for urine C&S results. Awaiting for reply
--- NOTE | 2020-03-03 09:53 | General Progress Note ---
Assessment/Plan Problem List: (1) Pyelonephritis ICD Codes: N12 - Tubulo-interstitial nephritis, not specified as acute or chronic SNOMED: 85928691, 12915204 (2) Renal failure ICD Codes: N19 - Unspecified kidney failure SNOMED: 69423918, 84860856 (3) Coffee ground emesis ICD Codes: K92.0 - Hematemesis SNOMED: 21775020, 70885293 (4) Hyperglycemic crisis due to diabetes mellitus ICD Codes: E11.65 - Type 2 diabetes mellitus with hyperglycemia SNOMED: 733290263, 00362881 (5) Altered mental status ICD Codes: R41.82 - Altered mental status, unspecified SNOMED: 792457036 Status: stable, not improved Assessment/Plan: Continue IV hydration.Monitor lites and volume status. Insulin sliding scale. Monitor Accu-Cheks. P.o. trial monitor for aspiration. Swallow evaluation. IV antibiotics for UTI and sepsis Follow-up pending cultures DVT and stress ulcer prophylaxis Turn every 2 hours Monitor labs and volume status electrolytes and renal function Subjective ROS Limited/Unobtainable: Yes Constitutional: Reports: malaise, weakness HEENT: Reports: no symptoms Cardiovascular: Reports: no symptoms Respiratory: Reports: cough Gastrointestinal/Abdominal: Reports: difficulty swallowing Genitourinary: Reports: no symptoms Neurologic/Psychiatric: Reports: pre-existing deficit Endocrine: Reports: no symptoms Hematologic/Lymphatic: Reports: anemia Allergies: Coded Allergies: No Known Allergies (Unverified , 03/01/20) All Systems: reviewed and negative except above Subjective No overnight events. Sodium levels trending down. More alert and cooperative. Able to take some p.o.'s. COVID-19 PCR is negative. No shortness of breath or cough. No fevers noted. On IV antibiotics for urinary tract infection. Discussed with night staff Objective Last 24 Hour Vital Signs Date Time Temp Pulse Resp B/P (MAP) Pulse Ox O2 Delivery O2 Flow Rate FiO2 03/03/20 08:00 98.0 86 18 151/69 (96) 95 03/03/20 08:00 Room Air 03/03/20 08:00 88 03/03/20 06:00 88 03/03/20 04:00 Room Air 03/03/20 04:00 97.9 90 19 153/74 (100) 96 03/03/20 00:00 98.2 82 18 148/79 (102) 96 03/03/20 00:00 Room Air 03/02/20 23:40 92 03/02/20 20:00 Room Air 03/02/20 20:00 89 03/02/20 20:00 97.8 70 18 155/84 (107) 95 03/02/20 15:49 Room Air 03/02/20 15:44 97.1 87 18 140/94 (109) 94 03/02/20 15:13 75 03/02/20 12:05 97.0 85 21 140/74 (96) 95 03/02/20 12:00 Room Air 03/02/20 11:48 86 Intake and Output 03/02/20 03/03/20 19:00 07:00 Intake Total 1782.21 ml 1637.5 ml Output Total 500 ml Balance 1782.21 ml 1137.5 ml Intake IV Total 1782.21 ml 1637.5 ml Output Urine Total 500 ml # Voids 3 Laboratory Tests 03/03/20 07:45: White Blood Count 13.1H, Red Blood Count 5.64H, Hemoglobin 15.2, Hematocrit 45.5 , Mean Corpuscular Volume 81, Mean Corpuscular Hemoglobin 27.0, Mean Corpuscular Hemoglobin Concent 33.5, Red Cell Distribution Width 13.3, Platelet Count 270, Mean Platelet Volume 8.2, Neutrophils (%) (Auto) 80.0H, Lymphocytes ( %) (Auto) 12.1L, Monocytes (%) (Auto) 6.7, Eosinophils (%) (Auto) 0.5, Basophils (%) (Auto) 0.7, Sodium Level 152H, Potassium Level 4.6, Chloride Level 118H, Carbon Dioxide Level 20L, Anion Gap 14, Blood Urea Nitrogen 17, Creatinine 0.9, Estimat Glomerular Filtration Rate > 60, Glucose Level 150H, Calcium Level 9.0, Total Bilirubin 0.7, Aspartate Amino Transf (AST/SGOT) 42H, Alanine Aminotransferase (ALT/SGPT) 24, Alkaline Phosphatase 110, Troponin I 0.009, Total Protein 8.2, Albumin 3.1L, Globulin 5.1, Albumin/Globulin Ratio 0.6L, Amylase Level 112, Lipase 74 Height (Feet): 5 Height (Inches): 7.00 Weight (Pounds): 115 General Appearance: WD/WN, lethargic, confused EENT: normal ENT inspection Neck: supple Cardiovascular: normal rate, regular rhythm Respiratory/Chest: chest wall non-tender, lungs clear, normal breath sounds, no respiratory distress, no accessory muscle use Abdomen: normal bowel sounds, non tender, soft, no organomegaly, no mass Edema: no edema noted Arm (L), no edema noted Arm (R), no edema noted Leg (L), no edema noted Leg (R), no edema noted Pedal (L), no edema noted Pedal (R), no edema noted Generalized Neurologic: disoriented Skin: normal pigmentation Larry Martinez MD Mar 03, 2020 09:53
--- NOTE | 2020-03-03 09:53 | NUR ---
NURSE NOTES: Dr. Tinsley called back for new orders. IV zosyn d/c'd and changed to Levofloxacin 500mg QD PO for ESBL urine. Orders read back and carried out.
--- NOTE | 2020-03-03 10:59 | Infectious Diseases Prog Note ---
Assessment/Plan Assessment/Plan A; 1. Klebsielle urinary tract infection. 2. Diabetes with hyperglycemia 3. Hypertension. 4. Negative COVID19 test 5. COPD. PLAN: 1. Continue Levaquin 2. Discontinue Droplet isolation. Subjective ROS Limited/Unobtainable: Yes Constitutional: Denies: fever Allergies: Coded Allergies: No Known Allergies (Unverified , 03/01/20) Objective Vital Signs Last 24 Hour Vital Signs Date Time Temp Pulse Resp B/P (MAP) Pulse Ox O2 Delivery O2 Flow Rate FiO2 03/03/20 08:00 98.0 86 18 151/69 (96) 95 03/03/20 08:00 Room Air 03/03/20 08:00 88 03/03/20 06:00 88 03/03/20 04:00 Room Air 03/03/20 04:00 97.9 90 19 153/74 (100) 96 03/03/20 00:00 98.2 82 18 148/79 (102) 96 03/03/20 00:00 Room Air 03/02/20 23:40 92 03/02/20 20:00 Room Air 03/02/20 20:00 89 03/02/20 20:00 97.8 70 18 155/84 (107) 95 03/02/20 15:49 Room Air 03/02/20 15:44 97.1 87 18 140/94 (109) 94 03/02/20 15:13 75 03/02/20 12:05 97.0 85 21 140/74 (96) 95 03/02/20 12:00 Room Air 03/02/20 11:48 86 Height (Feet): 5 Height (Inches): 7.00 Weight (Pounds): 115 HEENT: mucous membranes moist, other - poor dentition Respiratory/Chest: lungs clear Cardiovascular: normal rate Abdomen: soft, non tender Extremities: no edema Neurologic/Psychiatric: alert, responsive Microbiology Date/Time Source Procedure Growth Status 03/01/20 11:00 Blood Blood Culture - Preliminary NO GROWTH AFTER 24 HOURS Resulted 03/01/20 10:45 Blood Blood Culture - Preliminary NO GROWTH AFTER 24 HOURS Resulted 03/01/20 11:10 Nasopharynx Coronavirus COVID-19 PCR ([facility]IN) - Final Complete 03/01/20 11:10 Urine,Clean Catch Urine Culture - Final Klebsiella Pneumoniae Esbl Complete 03/01/20 13:00 Rectum Received Laboratory Tests Test 03/03/20 07:45 White Blood Count 13.1 K/UL (4.8-10.8) H Red Blood Count 5.64 M/UL (4.20-5.40) H Hemoglobin 15.2 G/DL (12.0-16.0) Hematocrit 45.5 % (37.0-47.0) Mean Corpuscular Volume 81 FL (80-99) Mean Corpuscular Hemoglobin 27.0 PG (27.0-31.0) Mean Corpuscular Hemoglobin Concent 33.5 G/DL (32.0-36.0) Red Cell Distribution Width 13.3 % (11.6-14.8) Platelet Count 270 K/UL (150-450) Mean Platelet Volume 8.2 FL (6.5-10.1) Neutrophils (%) (Auto) 80.0 % (45.0-75.0) H Lymphocytes (%) (Auto) 12.1 % (20.0-45.0) L Monocytes (%) (Auto) 6.7 % (1.0-10.0) Eosinophils (%) (Auto) 0.5 % (0.0-3.0) Basophils (%) (Auto) 0.7 % (0.0-2.0) Sodium Level 152 MMOL/L (136-145) H Potassium Level 4.6 MMOL/L (3.5-5.1) Chloride Level 118 MMOL/L (98-107) H Carbon Dioxide Level 20 MMOL/L (21-32) L Anion Gap 14 mmol/L (5-15) Blood Urea Nitrogen 17 mg/dL (7-18) Creatinine 0.9 MG/DL (0.55-1.30) Estimat Glomerular Filtration Rate > 60 mL/min (>60) Glucose Level 150 MG/DL (74-106) H Calcium Level 9.0 MG/DL (8.5-10.1) Total Bilirubin 0.7 MG/DL (0.2-1.0) Aspartate Amino Transf (AST/SGOT) 42 U/L (15-37) H Alanine Aminotransferase (ALT/SGPT) 24 U/L (12-78) Alkaline Phosphatase 110 U/L (46-116) Troponin I 0.009 ng/mL (0.000-0.056) Total Protein 8.2 G/DL (6.4-8.2) Albumin 3.1 G/DL (3.4-5.0) L Globulin 5.1 g/dL Albumin/Globulin Ratio 0.6 (1.0-2.7) L Amylase Level 112 U/L (25-115) Lipase 74 U/L (73-393) Current Medications Medications (Trade) Dose Ordered Sig/Roberto Route PRN Reason Start Time Stop Time Status Last Admin Dose Admin Acetaminophen (Tylenol) 650 mg Q4H PRN ORAL mild pain/fever 03/01/20 18:30 03/31/20 18:29 Al Hydroxide/Mg Hydroxide (Mylanta) 30 ml Q4HR PRN ORAL Constipation 03/01/20 20:15 03/31/20 20:14 Albuterol Sulfate (Proventil MDI) 2 puff Q4H PRN INH Shortness of Breath 03/02/20 02:00 05/31/20 01:59 Aripiprazole (Abilify) 5 mg DAILY ORAL 03/02/20 09:00 04/16/20 08:59 03/03/20 09:16 Ascorbic Acid (Vitamin C) 500 mg DAILY ORAL 03/02/20 09:00 04/01/20 08:59 Atorvastatin Calcium (Lipitor) 20 mg BEDTIME ORAL 03/01/20 21:00 05/30/20 20:59 03/02/20 21:54 Dextrose (Dextrose 50%) 25 ml Q30M PRN IV Hypoglycemia 03/01/20 18:30 05/30/20 18:29 Dextrose (Dextrose 50%) 50 ml Q30M PRN IV Hypoglycemia 03/01/20 18:30 05/30/20 18:29 03/03/20 06:19 Dextrose/ Electrolytes 1,000 ml @ 150 mls/hr Q6H40M IV 03/03/20 08:00 04/02/20 07:59 03/03/20 08:35 Enoxaparin Sodium (Lovenox) 40 mg DAILY SUBQ 03/02/20 09:00 05/31/20 08:59 03/03/20 09:16 Insulin Aspart (NovoLOG) BEFORE MEALS AND HS SUBQ 03/01/20 21:00 05/30/20 20:59 03/02/20 12:14 Insulin Detemir (Levemir) 20 units BEDTIME SUBQ 03/01/20 21:00 05/30/20 20:59 03/02/20 21:57 Levofloxacin (Levaquin) 500 mg DAILY ORAL 03/03/20 12:00 03/10/20 11:59 Levothyroxine Sodium (Synthroid) 150 mcg 0630 ORAL 03/02/20 06:30 04/01/20 06:29 03/03/20 06:18 Mirtazapine (Remeron) 7.5 mg BEDTIME ORAL 03/01/20 21:00 05/30/20 20:59 03/02/20 21:53 Multivitamins (Multivitamins) 1 tab DAILY ORAL 03/02/20 09:00 04/01/20 08:59 Pantoprazole (Protonix) 40 mg EVERY 12 HOURS IVP 03/02/20 09:00 04/01/20 08:59 03/03/20 09:16 Sitagliptin Phosphate (Januvia) 100 mg DAILY ORAL 03/02/20 09:00 04/01/20 08:59 Kenny Alejandro MD Mar 03, 2020 10:59
--- NOTE | 2020-03-03 11:14 | General Progress Note ---
Assessment/Plan Status: stable, not improved Assessment/Plan: 1. History of diabetes. 2. Hypertension. 3. Coronary artery disease and myocardial infarction. 4. COPD. 5. GERD. 6. CVA. 7. Dementia. 8. Psychiatric disorder including schizophrenia 9. Coffee ground emesis stable H&H ppi fu labs fu swallow eval GI procedures on hold given stable H&H Subjective ROS Limited/Unobtainable: No Allergies: Coded Allergies: No Known Allergies (Unverified , 03/01/20) Objective Last 24 Hour Vital Signs Date Time Temp Pulse Resp B/P (MAP) Pulse Ox O2 Delivery O2 Flow Rate FiO2 03/03/20 08:00 98.0 86 18 151/69 (96) 95 03/03/20 08:00 Room Air 03/03/20 08:00 88 03/03/20 06:00 88 03/03/20 04:00 Room Air 03/03/20 04:00 97.9 90 19 153/74 (100) 96 03/03/20 00:00 98.2 82 18 148/79 (102) 96 03/03/20 00:00 Room Air 03/02/20 23:40 92 03/02/20 20:00 Room Air 03/02/20 20:00 89 03/02/20 20:00 97.8 70 18 155/84 (107) 95 03/02/20 15:49 Room Air 03/02/20 15:44 97.1 87 18 140/94 (109) 94 03/02/20 15:13 75 03/02/20 12:05 97.0 85 21 140/74 (96) 95 03/02/20 12:00 Room Air 03/02/20 11:48 86 Intake and Output 03/02/20 03/03/20 19:00 07:00 Intake Total 1782.21 ml 1637.5 ml Output Total 500 ml Balance 1782.21 ml 1137.5 ml Intake IV Total 1782.21 ml 1637.5 ml Output Urine Total 500 ml # Voids 3 Laboratory Tests 03/03/20 07:45: White Blood Count 13.1H, Red Blood Count 5.64H, Hemoglobin 15.2, Hematocrit 45.5 , Mean Corpuscular Volume 81, Mean Corpuscular Hemoglobin 27.0, Mean Corpuscular Hemoglobin Concent 33.5, Red Cell Distribution Width 13.3, Platelet Count 270, Mean Platelet Volume 8.2, Neutrophils (%) (Auto) 80.0H, Lymphocytes ( %) (Auto) 12.1L, Monocytes (%) (Auto) 6.7, Eosinophils (%) (Auto) 0.5, Basophils (%) (Auto) 0.7, Sodium Level 152H, Potassium Level 4.6, Chloride Level 118H, Carbon Dioxide Level 20L, Anion Gap 14, Blood Urea Nitrogen 17, Creatinine 0.9, Estimat Glomerular Filtration Rate > 60, Glucose Level 150H, Calcium Level 9.0, Total Bilirubin 0.7, Aspartate Amino Transf (AST/SGOT) 42H, Alanine Aminotransferase (ALT/SGPT) 24, Alkaline Phosphatase 110, Troponin I 0.009, Total Protein 8.2, Albumin 3.1L, Globulin 5.1, Albumin/Globulin Ratio 0.6L, Amylase Level 112, Lipase 74 Height (Feet): 5 Height (Inches): 7.00 Weight (Pounds): 115 General Appearance: no apparent distress EENT: normal ENT inspection Neck: supple Cardiovascular: normal rate Respiratory/Chest: decreased breath sounds Abdomen: normal bowel sounds, non tender, soft Extremities: non-tender Pollo Hoover MD Mar 03, 2020 11:14
--- NOTE | 2020-03-03 11:17 | Nephrology Progress Note ---
Assessment/Plan Problem List: (1) Hypernatremia (2) Dehydration (3) Pyelonephritis (4) Hyperglycemic crisis due to diabetes mellitus (5) Altered mental status Plan glu to 46 insulin reduced iv adjusted Subjective ROS Limited/Unobtainable: Yes Objective Objective Last 24 Hour Vital Signs Date Time Temp Pulse Resp B/P (MAP) Pulse Ox O2 Delivery O2 Flow Rate FiO2 03/03/20 08:00 98.0 86 18 151/69 (96) 95 03/03/20 08:00 Room Air 03/03/20 08:00 88 03/03/20 06:00 88 03/03/20 04:00 Room Air 03/03/20 04:00 97.9 90 19 153/74 (100) 96 03/03/20 00:00 98.2 82 18 148/79 (102) 96 03/03/20 00:00 Room Air 03/02/20 23:40 92 03/02/20 20:00 Room Air 03/02/20 20:00 89 03/02/20 20:00 97.8 70 18 155/84 (107) 95 03/02/20 15:49 Room Air 03/02/20 15:44 97.1 87 18 140/94 (109) 94 03/02/20 15:13 75 03/02/20 12:05 97.0 85 21 140/74 (96) 95 03/02/20 12:00 Room Air 03/02/20 11:48 86 Intake and Output 03/02/20 03/03/20 19:00 07:00 Intake Total 1782.21 ml 1637.5 ml Output Total 500 ml Balance 1782.21 ml 1137.5 ml Intake IV Total 1782.21 ml 1637.5 ml Output Urine Total 500 ml # Voids 3 Laboratory Tests 03/03/20 07:45: White Blood Count 13.1H, Red Blood Count 5.64H, Hemoglobin 15.2, Hematocrit 45.5 , Mean Corpuscular Volume 81, Mean Corpuscular Hemoglobin 27.0, Mean Corpuscular Hemoglobin Concent 33.5, Red Cell Distribution Width 13.3, Platelet Count 270, Mean Platelet Volume 8.2, Neutrophils (%) (Auto) 80.0H, Lymphocytes ( %) (Auto) 12.1L, Monocytes (%) (Auto) 6.7, Eosinophils (%) (Auto) 0.5, Basophils (%) (Auto) 0.7, Sodium Level 152H, Potassium Level 4.6, Chloride Level 118H, Carbon Dioxide Level 20L, Anion Gap 14, Blood Urea Nitrogen 17, Creatinine 0.9, Estimat Glomerular Filtration Rate > 60, Glucose Level 150H, Calcium Level 9.0, Total Bilirubin 0.7, Aspartate Amino Transf (AST/SGOT) 42H, Alanine Aminotransferase (ALT/SGPT) 24, Alkaline Phosphatase 110, Troponin I 0.009, Total Protein 8.2, Albumin 3.1L, Globulin 5.1, Albumin/Globulin Ratio 0.6L, Amylase Level 112, Lipase 74 Height (Feet): 5 Height (Inches): 7.00 Weight (Pounds): 115 General Appearance: lethargic EENT: normal ENT inspection Neck: normal alignment Cardiovascular: regular rhythm Respiratory/Chest: lungs clear Abdomen: non tender Extremities: no edema Neurologic: disoriented Jose Martin Estevez MD Mar 03, 2020 11:17
[2020-03-03 12:00] VITALS: BP 130/61
[2020-03-03] MEDS: Levofloxacin 500mg tab ORAL SCH (12:01)
[2020-03-03] MEDS ORDERED: NS 275ml ONE (13:19)
[2020-03-03] MEDS ORDERED: Tubing IV Secondary IV ONE (13:19)
[2020-03-03 16:00] VITALS: BP 161/100
--- NOTE | 2020-03-03 19:04 | NUR ---
HAND-OFF: Report given to Matt DE LOS SANTOS. Pt remains stable.
--- NOTE | 2020-03-03 19:10 | NUR ---
NURSE NOTES: Pt report received from MIN RN. pt remains stable. pt is alert and oriented times 1, no acute neuro abnormalities noted. pt is on room air able to sat at 97% O2, no acute resp distress noted. pt is on pin inserter regulator showing NSR, no acute cardiac abnormalities noted. pt bed is low, locked, armed, call light within reach, bed rails up times 3. will follow plan of care.
[2020-03-03 20:00] VITALS: BP 155/92
[2020-03-03] MEDS: Atorvastatin 20mg tab ORAL SCH (20:55)
[2020-03-03] MEDS ORDERED: Levemir Flexpen SUBQ SCH (21:00)
--- NOTE | 2020-03-03 22:22 | Pulmonology Progress Note ---
Assessment/Plan Assessment/Plan Pulmonary Progress Note HPI: The patient is an 79-year-old woman admitted with Pyelonephritis, significantly elevated sugars greater than 800. The patient also noted to be more altered than usual, has multiple medical problems including diabetes. The patient noted to have acute on chronic renal failure. The patient is nonambulatory, unable to give much more history. The patient also history of COPD. The patient care discussed. ER notes reviewed. Discussed with the ER physician and residential notes reviewed as well. The patient has no COVID related symptoms and laboratory data is significantly abnormal with renal failure, lactic acidemia, leukocytosis. Care discussed with the patient's primary doctor at the facility. The patient events appeared to be fairly acute overall. PAST MEDICAL HISTORY: Notable for diabetes, hypertension, GA, CAD, COPD, GERD, CVA, TIA, dementia, psych history, schizophrenia. PHYSICAL EXAMINATION: GENERAL: An ill-appearing female, advanced age. VITAL SIGNS NOTED HEENT: Negative. Mucous membranes are dry. NECK: Supple. No adenopathy. LUNGS: Moderate breath sounds. No rhonchi. CARDIAC: Regular rate and rhythm without murmurs, rubs, gallops. ABDOMEN: Soft, nontender, nondistended. EXTREMITIES: No edema. NEUROLOGIC: Confused, disoriented, weak overall. LABORATORY DATA: Reviewed. White count 8.7, hemoglobin 16.3, platelets normal. Chemistries noted and reviewed. Potassium is 5, BUN 63, creatinine 1.9, blood sugar is 861. IMPRESSION: 1. Diabetes out of control. 2. Hyperosmotic nonketotic state - Renal following 3. Lactic acidemia. 4. Metabolic acidosis. 5. Leukocytosis. 6. Possible sepsis. 7. Hemoconcentration. 8. COPD per history. No significant respiratory distress at this time. 9. History of CAD. PLAN: Supportive care. IV hydration aggressively. Renal following. Resume residential medications. Sliding scale insulin adjust. Necessary care will be outlined and monitor clinically for further changes. NPO except medications for now and will reassess and recommend further as needed and consider insulin management after discharge for diabetic management. Labs noted Chest x-ray is negative. Subjective ROS Limited/Unobtainable: No Allergies: Coded Allergies: No Known Allergies (Unverified , 03/01/20) Objective Last 24 Hour Vital Signs Date Time Temp Pulse Resp B/P (MAP) Pulse Ox O2 Delivery O2 Flow Rate FiO2 03/03/20 20:00 95 03/03/20 20:00 97.8 93 18 155/92 (113) 97 03/03/20 20:00 Room Air 03/03/20 16:00 98.1 98 18 161/100 (120) 96 03/03/20 16:00 77 03/03/20 16:00 Room Air 03/03/20 12:00 89 03/03/20 12:00 Room Air 03/03/20 12:00 97.7 82 18 130/61 (84) 94 03/03/20 08:00 98.0 86 18 151/69 (96) 95 03/03/20 08:00 Room Air 03/03/20 08:00 88 03/03/20 06:00 88 03/03/20 04:00 Room Air 03/03/20 04:00 97.9 90 19 153/74 (100) 96 03/03/20 00:00 98.2 82 18 148/79 (102) 96 03/03/20 00:00 Room Air 03/02/20 23:40 92 Intake and Output 03/02/20 03/03/20 19:00 07:00 Intake Total 1782.21 ml 1665.0 ml Output Total 500 ml Balance 1782.21 ml 1165.0 ml IV Total 1782.21 ml 1665.0 ml Output Urine Total 500 ml # Voids 3 Microbiology Date/Time Source Procedure Growth Status 03/01/20 11:00 Blood Blood Culture - Preliminary NO GROWTH AFTER 24 HOURS Resulted 03/01/20 10:45 Blood Blood Culture - Preliminary NO GROWTH AFTER 24 HOURS Resulted 03/01/20 11:10 Nasopharynx Coronavirus COVID-19 PCR ([facility]) - Final Complete 03/01/20 11:10 Urine,Clean Catch Urine Culture - Final Klebsiella Pneumoniae Esbl Complete 03/01/20 13:00 Rectum Received Laboratory Tests 03/03/20 07:45: White Blood Count 13.1H, Red Blood Count 5.64H, Hemoglobin 15.2, Hematocrit 45.5 , Mean Corpuscular Volume 81, Mean Corpuscular Hemoglobin 27.0, Mean Corpuscular Hemoglobin Concent 33.5, Red Cell Distribution Width 13.3, Platelet Count 270, Mean Platelet Volume 8.2, Neutrophils (%) (Auto) 80.0H, Lymphocytes ( %) (Auto) 12.1L, Monocytes (%) (Auto) 6.7, Eosinophils (%) (Auto) 0.5, Basophils (%) (Auto) 0.7, Sodium Level 152H, Potassium Level 4.6, Chloride Level 118H, Carbon Dioxide Level 20L, Anion Gap 14, Blood Urea Nitrogen 17, Creatinine 0.9, Estimat Glomerular Filtration Rate > 60, Glucose Level 150H, Calcium Level 9.0, Total Bilirubin 0.7, Aspartate Amino Transf (AST/SGOT) 42H, Alanine Aminotransferase (ALT/SGPT) 24, Alkaline Phosphatase 110, Troponin I 0.009, Total Protein 8.2, Albumin 3.1L, Globulin 5.1, Albumin/Globulin Ratio 0.6L, Amylase Level 112, Lipase 74 Current Medications Medications (Trade) Dose Ordered Sig/Roberto Route PRN Reason Start Time Stop Time Status Last Admin Dose Admin Acetaminophen (Tylenol) 650 mg Q4H PRN ORAL mild pain/fever 03/01/20 18:30 03/31/20 18:29 Al Hydroxide/Mg Hydroxide (Mylanta) 30 ml Q4HR PRN ORAL Constipation 03/01/20 20:15 03/31/20 20:14 Albuterol Sulfate (Proventil MDI) 2 puff Q4H PRN INH Shortness of Breath 03/02/20 02:00 05/31/20 01:59 Aripiprazole (Abilify) 5 mg DAILY ORAL 03/02/20 09:00 04/16/20 08:59 03/03/20 09:16 Ascorbic Acid (Vitamin C) 500 mg DAILY ORAL 03/02/20 09:00 04/01/20 08:59 Atorvastatin Calcium (Lipitor) 20 mg BEDTIME ORAL 03/01/20 21:00 05/30/20 20:59 03/03/20 20:55 Dextrose (Dextrose 50%) 25 ml Q30M PRN IV Hypoglycemia 03/01/20 18:30 05/30/20 18:29 Dextrose (Dextrose 50%) 50 ml Q30M PRN IV Hypoglycemia 03/01/20 18:30 05/30/20 18:29 03/03/20 06:19 Enoxaparin Sodium (Lovenox) 40 mg DAILY SUBQ 03/02/20 09:00 05/31/20 08:59 03/03/20 09:16 Insulin Aspart (NovoLOG) BEFORE MEALS AND HS SUBQ 03/01/20 21:00 05/30/20 20:59 03/03/20 21:00 Insulin Detemir (Levemir) 15 units BEDTIME SUBQ 03/03/20 21:00 06/01/20 20:59 03/03/20 21:01 Levofloxacin (Levaquin) 500 mg DAILY ORAL 03/03/20 12:00 03/10/20 11:59 03/03/20 12:01 Levothyroxine Sodium (Synthroid) 150 mcg 0630 ORAL 03/02/20 06:30 04/01/20 06:29 03/03/20 06:18 Mirtazapine (Remeron) 7.5 mg BEDTIME ORAL 03/01/20 21:00 05/30/20 20:59 03/03/20 20:55 Multivitamins (Multivitamins) 1 tab DAILY ORAL 03/02/20 09:00 04/01/20 08:59 Pantoprazole (Protonix) 40 mg EVERY 12 HOURS IVP 03/02/20 09:00 04/01/20 08:59 03/03/20 20:54 Sitagliptin Phosphate (Januvia) 100 mg DAILY ORAL 03/02/20 09:00 04/01/20 08:59 Sodium 1,000 ml @ 100 mls/hr Q10H IV 03/03/20 12:00 04/02/20 11:59 03/03/20 21:01 Rory Rubi MD Mar 03, 2020 22:22
[2020-03-04] VITALS: BP 146/87
[2020-03-04 04:00] VITALS: BP 150/68
--- NOTE | 2020-03-04 04:45 | Progress Note ---
DATE: 03/03/2020 SUBJECTIVE: The patient is more alert and cooperative and interactive. She is able to take some oral intake. She has no shortness of breath, congestion, cough, or fevers. COVID-19 swab was negative. The patient has not had any recurring episodes of atrial fibrillation. She does have sinus rhythm with atrial ectopy. OBJECTIVE: VITAL SIGNS: Blood pressure 151/69, pulse 86, respirations 18, oxygen saturation 95% on room air. LUNGS: Few rhonchi. Regular rhythm and rate. Normal S1, S2 with a 1/6 systolic murmur at base. ABDOMEN: Soft, nontender. EXTREMITIES: No edema. LABORATORY DATA: White count is 13, hemoglobin 15.2. Urinalysis with too numerous to count white cells. Sodium 152, potassium 4.6, chloride 118, bicarb 20, BUN 17, creatinine 0.9. Albumin 3.1. Troponin negative. IMPRESSION: 1. Paroxysmal atrial fibrillation. 2. Lactic acidosis, resolved. 3. Metabolic acidosis, improved. 4. Hyperchloremia. 5. Hypernatremia. 6. Dehydration. 7. Mild protein-calorie malnutrition. 8. Type 2 diabetes mellitus with improving glucose parameters. 9. Urinary tract infection with Klebsiella ESBL and sepsis. 10. Toxic and metabolic encephalopathies. 11. Hypertensive heart disease with rising blood pressure trend. PLAN: 1. Continue hypotonic IV fluids. 2. Titrate insulin. 3. Thyroid replacement. 4. Stress ulcer and DVT prophylaxis. 5. Hypotonic IV fluids. 6. Add beta-randall. Rory Dickson M.D. DR: DEVIKA JOB#: [id number] CC:
[2020-03-04 05:42] LABS: ANION GAP 14 mmol/L (5-15); BLOOD UREA NITROGEN 16 mg/dL (7-18); CALCIUM 8.4 MG/DL (8.5-10.1); CARBON DIOXIDE 18 MMOL/L (21-32); CHLORIDE 118 MMOL/L (98-107); CREATININE 0.7 MG/DL (0.55-1.30); PHOSPHORUS 2.1 MG/DL (2.5-4.9); POTASSIUM 4.9 MMOL/L (3.5-5.1); SODIUM 150 MMOL/L (136-145)
[2020-03-04] MEDS: NovoLOG Insulin Flexpen SUBQ SCH ×4 (05:49→21:36)
--- NOTE | 2020-03-04 06:14 | Consultation ---
DATE OF CONSULTATION: 03/01/2020 CARDIOLOGY CONSULTATION CONSULTING PHYSICIAN: Rory Dickson MD. REQUESTING PHYSICIAN: 1. Larry Martinez MD. 2. Russell Goyal MD. REASON FOR CONSULTATION: Paroxysmal atrial fibrillation. HISTORY OF PRESENT ILLNESS: The patient is an 79-year-old female. She was noted to have a blood sugar levels over 800 and was withdrawn, lethargic, and altered in mentation. The patient is usually nonambulatory and has underlying dementia. She is unable to give detailed history. She was admitted with evidence of lactic acidosis, renal failure, and urinary tract infection with sepsis. She also was severely dehydrated. She was started on antimicrobials and hypotonic IV fluids. She was also placed on cardiac monitoring. She developed episodes of rapid atrial fibrillation. I have been asked to assist with cardiovascular care. PAST MEDICAL HISTORY: Dementia with psychosis, COPD, coronary artery disease, history of myocardial infarction, hypertension with hypertensive heart disease, insulin-requiring diabetes mellitus, cerebrovascular disease with history of CVA, gastroesophageal reflux disease. SOCIAL HISTORY: Lives in a [facility] facility. Negative for smoking, alcohol, or substance abuse. FAMILY HISTORY: Not known. MEDICATIONS: Prior to admission, reviewed and reconciled. REVIEW OF SYSTEMS: Not obtainable from patient. Review of available data and records x25 minutes and pertinent information is outlined above. PHYSICAL EXAMINATION: VITAL SIGNS: She is afebrile. Blood pressure 138/74, pulse 98, respiratory rate 24, oxygen saturation 98% on room air. GENERAL: She is ill-appearing, withdrawn, and lethargic. HEENT: Conjunctivae are pink. Oropharynx clear with mucous membranes dry. NECK: Supple. No adenopathy. Jugular venous pressure normal. LUNGS: Bilateral breath sounds. No wheezes or rales. CARDIAC: Regular rhythm and rate. Normal S1, S2. A 1/6 systolic murmur at the base. There are episodes of irregular rhythm is noted as well. ABDOMEN: Soft and nontender. EXTREMITIES: No edema. NEUROLOGIC: Nonfocal. Moderate confusion seen. LABORATORY AND DIAGNOSTIC DATA: White count 8.7, hemoglobin 16.3. Sodium 151, potassium 3.8, chloride 118, bicarb 18, BUN 42, creatinine 1, glucose 434. Glucose 861 on initial presentation with lactic acid of 5.1. Troponin negative. Chest x-ray, no acute process. Urinalysis too numerous to count white cells. IMPRESSION: 1. Diabetes mellitus with glucose uncontrolled. 2. Lactic acidosis. 3. Hyperosmotic nonketotic coma. 4. Metabolic acidosis. 5. Urinary tract infection with sepsis. 6. Hemoconcentration. 7. COPD exacerbation. 8. Hypertensive heart disease. 9. Ischemic cardiomyopathy with no acute ischemia noted. 10. Paroxysmal atrial fibrillation likely secondary to above. 11. Toxic and metabolic encephalopathy. PLAN: 1. Hold antiarrhythmics. 2. Continue IV fluid hydration. 3. Add beta-randall if rates are increased. 4. antimicrobials. 5. DVT and stress ulcer prophylaxis. 6. Insulin titration. 7. Follow up laboratory studies. 8. Hold anticoagulation unless atrial fibrillation is sustained for over 24 hours. Rory Dickson M.D. DR: Veronica JOB#: [id number] CC:
--- NOTE | 2020-03-04 07:10 | NUR ---
NURSE NOTES: Received report from Matt DE LOS SANTOS. Pt in bed resting, awake and orientedx1 and able to make needs known. No c/o pain. Denied SOB on room air, sating 95% on room air. Bed railsx3 up for safety. Bed in lowest position and locked. IV site in R wrist 22G SL, LFA 24G running with 1/2NS w/KCL 20mEq @150ml/hr patnent and asymptomatic. Call light within easy reach. will continue to plan of care.
--- NOTE | 2020-03-04 07:20 | NUR ---
HAND-OFF: Report given to MIN RN. Pt remains stable.
[2020-03-04 08:00] VITALS: BP 164/76
[2020-03-04] MEDS: 1/2NS w/KCl 20mEq 1000ml 1,000 ML IV SCH ×2 (08:10→17:54)
[2020-03-04] MEDS: Ascorbic Acid 500mg tab ORAL SCH (08:11)
[2020-03-04] MEDS: sitaGLIPtin 50mg tab ORAL SCH (08:15)
[2020-03-04] MEDS: Pantoprazole Inj IVP SCH ×2 (08:17→21:37)
[2020-03-04] MEDS: Levofloxacin 500mg tab ORAL SCH (08:17)
[2020-03-04] MEDS: Enoxaparin 40mg Inj SUBQ SCH (08:18)
--- NOTE | 2020-03-04 08:46 | General Progress Note ---
Assessment/Plan Status: stable, not improved Assessment/Plan: 1. History of diabetes. 2. Hypertension. 3. Coronary artery disease and myocardial infarction. 4. COPD. 5. GERD. 6. CVA. 7. Dementia. 8. Psychiatric disorder including schizophrenia 9. Coffee ground emesis stable H&H ppi fu labs fu swallow eval on puree diet and ate 100 % add bowel regimen now on 100 cc/h ivf GI procedures on hold given stable H&H Subjective ROS Limited/Unobtainable: No Allergies: Coded Allergies: No Known Allergies (Unverified , 03/01/20) Objective Last 24 Hour Vital Signs Date Time Temp Pulse Resp B/P (MAP) Pulse Ox O2 Delivery O2 Flow Rate FiO2 03/04/20 08:12 88 153/80 03/04/20 04:00 98.0 70 18 150/68 (95) 98 03/04/20 04:00 Room Air 03/04/20 04:00 88 03/04/20 00:00 91 03/04/20 00:00 Room Air 03/04/20 00:00 98.4 86 18 146/87 (106) 99 03/03/20 20:00 95 03/03/20 20:00 97.8 93 18 155/92 (113) 97 03/03/20 20:00 Room Air 03/03/20 16:00 98.1 98 18 161/100 (120) 96 03/03/20 16:00 77 03/03/20 16:00 Room Air 03/03/20 12:00 89 03/03/20 12:00 Room Air 03/03/20 12:00 97.7 82 18 130/61 (84) 94 Intake and Output 03/03/20 03/04/20 19:00 07:00 Intake Total 1857.5 ml 1000 ml Output Total 2400 ml 500 ml Balance -542.5 ml 500 ml Intake Oral 400 ml IV Total 1457.5 ml 1000 ml Output Urine Total 2400 ml 500 ml Laboratory Tests 03/04/20 04:00: Sodium Level 150H, Potassium Level 4.9, Chloride Level 118H, Carbon Dioxide Level 18L, Anion Gap 14, Blood Urea Nitrogen 16, Creatinine 0.7, Estimat Glomerular Filtration Rate > 60, Glucose Level 93, Calcium Level 8.4L, Phosphorus Level 2.1L, Magnesium Level 1.9 Height (Feet): 5 Height (Inches): 7.00 Weight (Pounds): 115 General Appearance: no apparent distress EENT: normal ENT inspection Neck: supple Cardiovascular: normal rate Respiratory/Chest: decreased breath sounds Abdomen: normal bowel sounds, non tender, soft Extremities: non-tender Pollo Hoover MD Mar 04, 2020 08:46
[2020-03-04] MEDS ORDERED: Docusate 100mg cap ORAL SCH (09:00)
--- NOTE | 2020-03-04 09:18 | General Progress Note ---
Assessment/Plan Problem List: (1) Pyelonephritis ICD Codes: N12 - Tubulo-interstitial nephritis, not specified as acute or chronic SNOMED: 63997555, 05787525 (2) Renal failure ICD Codes: N19 - Unspecified kidney failure SNOMED: 75292015, 85642314 (3) Coffee ground emesis ICD Codes: K92.0 - Hematemesis SNOMED: 64939595, 67988203 (4) Hyperglycemic crisis due to diabetes mellitus ICD Codes: E11.65 - Type 2 diabetes mellitus with hyperglycemia SNOMED: 110031461, 45358100 (5) Altered mental status ICD Codes: R41.82 - Altered mental status, unspecified SNOMED: 182180242 Status: stable, not improved Assessment/Plan: Continue IV hydration.Monitor lytes and volume status. Insulin sliding scale. Monitor Accu-Cheks. P.o. trial. Monitor for aspiration. Swallow evaluation. IV antibiotics for UTI and sepsis Follow-up pending cultures DVT and stress ulcer prophylaxis Turn every 2 hours Monitor labs and volume status electrolytes and renal function Subjective ROS Limited/Unobtainable: Yes Constitutional: Reports: malaise, weakness HEENT: Reports: no symptoms Cardiovascular: Reports: no symptoms Respiratory: Reports: cough Gastrointestinal/Abdominal: Reports: difficulty swallowing Genitourinary: Reports: no symptoms Neurologic/Psychiatric: Reports: pre-existing deficit Endocrine: Reports: no symptoms Hematologic/Lymphatic: Reports: no symptoms Allergies: Coded Allergies: No Known Allergies (Unverified , 03/01/20) All Systems: reviewed and negative except above Subjective No overnight events. on ivf. More alert and cooperative. Able to take some p.o.'s. COVID-19 PCR is negative. ucx with esbl kleb. No shortness of breath or cough. normal sats on room air. No fevers noted. On IV antibiotics for urinary tract infection. Discussed with night staff Objective Last 24 Hour Vital Signs Date Time Temp Pulse Resp B/P (MAP) Pulse Ox O2 Delivery O2 Flow Rate FiO2 03/04/20 08:12 88 153/80 03/04/20 04:00 98.0 70 18 150/68 (95) 98 03/04/20 04:00 Room Air 03/04/20 04:00 88 03/04/20 00:00 91 03/04/20 00:00 Room Air 03/04/20 00:00 98.4 86 18 146/87 (106) 99 03/03/20 20:00 95 03/03/20 20:00 97.8 93 18 155/92 (113) 97 03/03/20 20:00 Room Air 03/03/20 16:00 98.1 98 18 161/100 (120) 96 03/03/20 16:00 77 03/03/20 16:00 Room Air 03/03/20 12:00 89 03/03/20 12:00 Room Air 03/03/20 12:00 97.7 82 18 130/61 (84) 94 Intake and Output 03/03/20 03/04/20 19:00 07:00 Intake Total 1857.5 ml 1000 ml Output Total 2400 ml 500 ml Balance -542.5 ml 500 ml Intake Oral 400 ml IV Total 1457.5 ml 1000 ml Output Urine Total 2400 ml 500 ml Laboratory Tests 03/04/20 04:00: Sodium Level 150H, Potassium Level 4.9, Chloride Level 118H, Carbon Dioxide Level 18L, Anion Gap 14, Blood Urea Nitrogen 16, Creatinine 0.7, Estimat Glomerular Filtration Rate > 60, Glucose Level 93, Calcium Level 8.4L, Phosphorus Level 2.1L, Magnesium Level 1.9 Height (Feet): 5 Height (Inches): 7.00 Weight (Pounds): 115 General Appearance: WD/WN, alert, confused EENT: normal ENT inspection Neck: supple Cardiovascular: normal peripheral pulses, normal rate, regular rhythm Respiratory/Chest: lungs clear, normal breath sounds, no respiratory distress Abdomen: normal bowel sounds, non tender, soft, no organomegaly, no mass Extremities: normal range of motion, non-tender Edema: no edema noted Arm (L), no edema noted Arm (R), no edema noted Leg (L), no edema noted Leg (R), no edema noted Pedal (L), no edema noted Pedal (R), no edema noted Generalized Neurologic: 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
--- NOTE | 2020-03-04 10:28 | Pulmonology Progress Note ---
Assessment/Plan Assessment/Plan 1. Diabetes out of control. 2. Hyperosmotic nonketotic state. 3. Lactic acidemia. 4. Metabolic acidosis. 5. Leukocytosis. 6. Possible sepsis. 7. Hemoconcentration. 8. COPD per history. No significant respiratory distress at this time. 9. History of CAD. Chest x-ray is negative. PLAN correct sodium monitor blood sugars antibiotic per ID close followup respiratory ok follow up for change and recommend impression, plan, and exam edited and reviewed in detail care discussed with RN Subjective ROS Limited/Unobtainable: Yes Allergies: Coded Allergies: No Known Allergies (Unverified , 03/01/20) Subjective care noted confused Objective Last 24 Hour Vital Signs Date Time Temp Pulse Resp B/P (MAP) Pulse Ox O2 Delivery O2 Flow Rate FiO2 03/04/20 08:12 88 153/80 03/04/20 08:00 97.6 80 18 164/76 (105) 96 03/04/20 08:00 Room Air 03/04/20 04:00 98.0 70 18 150/68 (95) 98 03/04/20 04:00 Room Air 03/04/20 04:00 88 03/04/20 00:00 91 03/04/20 00:00 Room Air 03/04/20 00:00 98.4 86 18 146/87 (106) 99 03/03/20 20:00 95 03/03/20 20:00 97.8 93 18 155/92 (113) 97 03/03/20 20:00 Room Air 03/03/20 16:00 98.1 98 18 161/100 (120) 96 03/03/20 16:00 77 03/03/20 16:00 Room Air 03/03/20 12:00 89 03/03/20 12:00 Room Air 03/03/20 12:00 97.7 82 18 130/61 (84) 94 Intake and Output 03/03/20 03/04/20 19:00 07:00 Intake Total 1857.5 ml 1000 ml Output Total 2400 ml 500 ml Balance -542.5 ml 500 ml Intake Oral 400 ml IV Total 1457.5 ml 1000 ml Output Urine Total 2400 ml 500 ml Objective WDWN NAD reduced breath sounds bilaterally without rhonchi or wheeze [id number] without MRG NABS nontender no HSM no CC mild edema nonfocal confused Microbiology Date/Time Source Procedure Growth Status 03/01/20 11:00 Blood Blood Culture - Preliminary NO GROWTH AFTER 48 HOURS Resulted 03/01/20 10:45 Blood Blood Culture - Preliminary NO GROWTH AFTER 48 HOURS Resulted 03/01/20 13:00 Nasal Nares MRSA Culture - Final NO METHICILLIN RESISTANT STAPH AUREUS... Complete 03/01/20 11:10 Nasopharynx Coronavirus COVID-19 PCR ([facility]) - Final Complete 03/01/20 11:10 Urine,Clean Catch Urine Culture - Final Klebsiella Pneumoniae Esbl Complete 03/01/20 13:00 Rectum VRE Culture - Final Enterococcus Faecalis - Vre Complete Laboratory Tests 03/04/20 04:00: Sodium Level 150H, Potassium Level 4.9, Chloride Level 118H, Carbon Dioxide Level 18L, Anion Gap 14, Blood Urea Nitrogen 16, Creatinine 0.7, Estimat Glomerular Filtration Rate > 60, Glucose Level 93, Calcium Level 8.4L, Phosphorus Level 2.1L, Magnesium Level 1.9 Current Medications Medications (Trade) Dose Ordered Sig/Roberto Route PRN Reason Start Time Stop Time Status Last Admin Dose Admin Acetaminophen (Tylenol) 650 mg Q4H PRN ORAL mild pain/fever 03/01/20 18:30 03/31/20 18:29 Al Hydroxide/Mg Hydroxide (Mylanta) 30 ml Q4HR PRN ORAL Constipation 03/01/20 20:15 03/31/20 20:14 Albuterol Sulfate (Proventil MDI) 2 puff Q4H PRN INH Shortness of Breath 03/02/20 02:00 05/31/20 01:59 Aripiprazole (Abilify) 5 mg DAILY ORAL 03/02/20 09:00 04/16/20 08:59 03/04/20 08:11 Ascorbic Acid (Vitamin C) 500 mg DAILY ORAL 03/02/20 09:00 04/01/20 08:59 03/04/20 08:11 Atorvastatin Calcium (Lipitor) 20 mg BEDTIME ORAL 03/01/20 21:00 05/30/20 20:59 03/03/20 20:55 Dextrose (Dextrose 50%) 25 ml Q30M PRN IV Hypoglycemia 03/01/20 18:30 05/30/20 18:29 Dextrose (Dextrose 50%) 50 ml Q30M PRN IV Hypoglycemia 03/01/20 18:30 05/30/20 18:29 03/04/20 05:50 Docusate Sodium (Colace) 100 mg TWICE A DAY ORAL 03/04/20 09:00 04/03/20 08:59 03/04/20 09:57 Enoxaparin Sodium (Lovenox) 40 mg DAILY SUBQ 03/02/20 09:00 05/31/20 08:59 03/04/20 08:18 Insulin Aspart (NovoLOG) BEFORE MEALS AND HS SUBQ 03/01/20 21:00 05/30/20 20:59 03/03/20 21:00 Insulin Detemir (Levemir) 15 units BEDTIME SUBQ 03/03/20 21:00 06/01/20 20:59 03/03/20 21:01 Levofloxacin (Levaquin) 500 mg DAILY ORAL 03/03/20 12:00 03/10/20 11:59 03/04/20 08:17 Levothyroxine Sodium (Synthroid) 150 mcg 0630 ORAL 03/02/20 06:30 04/01/20 06:29 03/04/20 05:49 Metoprolol Tartrate (Lopressor) 25 mg Q12HR ORAL 03/04/20 09:00 06/02/20 08:59 03/04/20 08:12 Mirtazapine (Remeron) 7.5 mg BEDTIME ORAL 03/01/20 21:00 05/30/20 20:59 03/03/20 20:55 Multivitamins (Multivitamins) 1 tab DAILY ORAL 03/02/20 09:00 04/01/20 08:59 03/04/20 08:12 Pantoprazole (Protonix) 40 mg EVERY 12 HOURS IVP 03/02/20 09:00 04/01/20 08:59 03/04/20 08:17 Polyethylene Glycol (Miralax) 17 gm BEDTIME ORAL 03/04/20 21:00 04/03/20 20:59 Sitagliptin Phosphate (Januvia) 100 mg DAILY ORAL 03/02/20 09:00 04/01/20 08:59 03/04/20 08:15 Sodium 1,000 ml @ 100 mls/hr Q10H IV 03/03/20 12:00 04/02/20 11:59 03/04/20 08:10 Russell Goyal MD Mar 04, 2020 10:28
--- NOTE | 2020-03-04 10:51 | Infectious Diseases Prog Note ---
Assessment/Plan Assessment/Plan antibiotics : levoquin A 1. klebsiella esbl UTI 2. Diabetes. 3. Hypertension. 4. COVID-19 test negative 5. COPD. P 1. continue levoquin po 3 more days 2. will follow up cultures Subjective ROS Limited/Unobtainable: Yes Allergies: Coded Allergies: No Known Allergies (Unverified , 03/01/20) Objective Vital Signs Last 24 Hour Vital Signs Date Time Temp Pulse Resp B/P (MAP) Pulse Ox O2 Delivery O2 Flow Rate FiO2 03/04/20 08:12 88 153/80 03/04/20 08:00 97.6 80 18 164/76 (105) 96 03/04/20 08:00 91 03/04/20 08:00 Room Air 03/04/20 04:00 98.0 70 18 150/68 (95) 98 03/04/20 04:00 Room Air 03/04/20 04:00 88 03/04/20 00:00 91 03/04/20 00:00 Room Air 03/04/20 00:00 98.4 86 18 146/87 (106) 99 03/03/20 20:00 95 03/03/20 20:00 97.8 93 18 155/92 (113) 97 03/03/20 20:00 Room Air 03/03/20 16:00 98.1 98 18 161/100 (120) 96 03/03/20 16:00 77 03/03/20 16:00 Room Air 03/03/20 12:00 89 03/03/20 12:00 Room Air 03/03/20 12:00 97.7 82 18 130/61 (84) 94 Height (Feet): 5 Height (Inches): 7.00 Weight (Pounds): 115 Microbiology Date/Time Source Procedure Growth Status 03/01/20 11:00 Blood Blood Culture - Preliminary NO GROWTH AFTER 48 HOURS Resulted 03/01/20 13:00 Nasal Nares MRSA Culture - Final NO METHICILLIN RESISTANT STAPH AUREUS... Complete 03/01/20 11:10 Nasopharynx Coronavirus COVID-19 PCR ([facility]) - Final Complete 03/01/20 11:10 Urine,Clean Catch Urine Culture - Final Klebsiella Pneumoniae Esbl Complete 03/01/20 13:00 Rectum VRE Culture - Final Enterococcus Faecalis - Vre Complete Laboratory Tests Test 03/04/20 04:00 Sodium Level 150 MMOL/L (136-145) H Potassium Level 4.9 MMOL/L (3.5-5.1) Chloride Level 118 MMOL/L (98-107) H Carbon Dioxide Level 18 MMOL/L (21-32) L Anion Gap 14 mmol/L (5-15) Blood Urea Nitrogen 16 mg/dL (7-18) Creatinine 0.7 MG/DL (0.55-1.30) Estimat Glomerular Filtration Rate > 60 mL/min (>60) Glucose Level 93 MG/DL (74-106) Calcium Level 8.4 MG/DL (8.5-10.1) L Phosphorus Level 2.1 MG/DL (2.5-4.9) L Magnesium Level 1.9 MG/DL (1.8-2.4) Current Medications Medications (Trade) Dose Ordered Sig/Roberto Route PRN Reason Start Time Stop Time Status Last Admin Dose Admin Acetaminophen (Tylenol) 650 mg Q4H PRN ORAL mild pain/fever 03/01/20 18:30 03/31/20 18:29 Al Hydroxide/Mg Hydroxide (Mylanta) 30 ml Q4HR PRN ORAL Constipation 03/01/20 20:15 03/31/20 20:14 Albuterol Sulfate (Proventil MDI) 2 puff Q4H PRN INH Shortness of Breath 03/02/20 02:00 05/31/20 01:59 Aripiprazole (Abilify) 5 mg DAILY ORAL 03/02/20 09:00 04/16/20 08:59 03/04/20 08:11 Ascorbic Acid (Vitamin C) 500 mg DAILY ORAL 03/02/20 09:00 04/01/20 08:59 03/04/20 08:11 Atorvastatin Calcium (Lipitor) 20 mg BEDTIME ORAL 03/01/20 21:00 05/30/20 20:59 03/03/20 20:55 Dextrose (Dextrose 50%) 25 ml Q30M PRN IV Hypoglycemia 03/01/20 18:30 05/30/20 18:29 Dextrose (Dextrose 50%) 50 ml Q30M PRN IV Hypoglycemia 03/01/20 18:30 05/30/20 18:29 03/04/20 05:50 Docusate Sodium (Colace) 100 mg TWICE A DAY ORAL 03/04/20 09:00 04/03/20 08:59 03/04/20 09:57 Enoxaparin Sodium (Lovenox) 40 mg DAILY SUBQ 03/02/20 09:00 05/31/20 08:59 03/04/20 08:18 Insulin Aspart (NovoLOG) BEFORE MEALS AND HS SUBQ 03/01/20 21:00 05/30/20 20:59 03/03/20 21:00 Insulin Detemir (Levemir) 15 units BEDTIME SUBQ 03/03/20 21:00 06/01/20 20:59 03/03/20 21:01 Levofloxacin (Levaquin) 500 mg DAILY ORAL 03/03/20 12:00 03/10/20 11:59 03/04/20 08:17 Levothyroxine Sodium (Synthroid) 150 mcg 0630 ORAL 03/02/20 06:30 04/01/20 06:29 03/04/20 05:49 Metoprolol Tartrate (Lopressor) 25 mg Q12HR ORAL 03/04/20 09:00 06/02/20 08:59 03/04/20 08:12 Mirtazapine (Remeron) 7.5 mg BEDTIME ORAL 03/01/20 21:00 05/30/20 20:59 03/03/20 20:55 Multivitamins (Multivitamins) 1 tab DAILY ORAL 03/02/20 09:00 04/01/20 08:59 03/04/20 08:12 Pantoprazole (Protonix) 40 mg EVERY 12 HOURS IVP 03/02/20 09:00 04/01/20 08:59 03/04/20 08:17 Polyethylene Glycol (Miralax) 17 gm BEDTIME ORAL 03/04/20 21:00 04/03/20 20:59 Sitagliptin Phosphate (Januvia) 100 mg DAILY ORAL 03/02/20 09:00 04/01/20 08:59 03/04/20 08:15 Sodium 1,000 ml @ 100 mls/hr Q10H IV 03/03/20 12:00 04/02/20 11:59 03/04/20 08:10 Clau Tinsley MD Mar 04, 2020 10:51
--- NOTE | 2020-03-04 11:11 | Diagnostic Imaging Report ---
Indication: Leg pain bilaterally Technique: Grayscale and duplex images of the bilateral lower extremity veins Comparison: None Findings: Bilaterally, grayscale and duplex images demonstrate no evidence of intraluminal thrombus. Normal phasic Doppler waveforms, demonstrating normal augmentation response and no evidence of valvular insufficiency. Greater saphenous vein(s) and tibial veins are patent. Normal compressibility. Impression: Negative for evidence of lower extremity deep venous thrombosis bilaterally
[2020-03-04 11:42] VITALS: BP 135/67
[2020-03-04] MEDS ORDERED: Docusate 100mg cap ORAL PRN (13:45)
--- NOTE | 2020-03-04 14:12 | NUR ---
ST NOTES: REFERRED FOR SWALLOW EVAL BY DR GOMEZ (DR MEHTA IS THE PRIMARY MD), SEE FULL REPORT. DYSPHAGIA AND ASPIRATION RISK FACTORS FOR THIS 79 Y.O.F.: ACUTE ISSUES: T/O COVID 19 (NEG X2 NO NEED FOR 2ND TEST PER MD) POSSIBLE SEPSIS, AMS, COFFEE GROUND, HYPERGLYCEMIA, HYPEROSMOLAR, RENAL FAILURE, PYELONEPHRITIS, LUNGS CLEAR MODERATE BREATH SOUNDS RESP RATE 18 AND SP02 96-98 ON ROOM AIR NOW, BP HIGH, LACTIC ACIDOSIS. 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 NO POLST AD REGARDING TUBE FEEDINGS BUT PT IS FULL CODE. AT SNF ON A [facility] CCHO MECH SOFT FINELY CHOPPED DIET AND THIN LIQUIDS AND WAS SEEING ST FOR DYSPHAGIA. NOW ON A CCHO-MED DIET AND THIN LIQUIDS. PER RN, MIN, THE PATIENT TOLERATED PUREED BUT SOMETIMES COUGHS WITH THIN LIQUIDS VIA TSP AND NEEDS TO BE FED. HAS A SPONTANEOUS COUGH W/O PO INTAKE. PER RN OK ON CRUSHED MEDS WITH APPLESAUCE. PER RD, SEND CCHO-LOW (ST TOLD RN). ALERT AND ABLE TO CONVEY BASIC NEEDS WITH GOOD SPEECH INTELLIGIBILITY. ONLY HAS 5 TEETH. INITIAL IMPRESSIONS: S/S OF AT LEAST A MILD-MOD OROPHARYNGEAL DYSPHAGIA WITH INCREASED OP TRANSIT TIMES. HOLD ON THIN LIQUIDS DUE TO COUGHING WITH RN TSP LEVEL. GIVEN NECATAR THICK LIQUIDS VIA CUP/STRAW SEQUENTIAL, NO ORAL RESIDUE/SPILLAGE NOR OVERT ASPIRATION. GIVEN PUREED TSP, CHEWED ON THE BOLUS FOR 4-6 SECONDS UNNECESSARILY AND THEN SWALLOWED WITH FAIR HYOLARYNGEAL EXCURSION, NO ORAL SPILLAGE, RESIDUE, NOR OVERT ASPIRATION. WILL HOLD ON MASTICATED SOLIDS FOR NOW SINCE SHE HAS MIN TEETH AND TAKES A LONG TIME WITH PUREED. HAS SILENT ASP RISK DUE TO DEMENITA/CVA HX ASP RISK ALSO INCREASED WITH NEED TO BE FED AND COGNITIVE DEFICITS. RECOMMENDATIONS: MOD BARIUM SWALLOW STUDY IF PO CONTINUES (PT WANTS TO EAT/DRINK BY MOUTH), CONTINUE WITH PUREED BUT DOWNGRADE TO NECTAR THICK LIQUIDS WITH POSTED ASP/REFLUX PRECAUTIONS AND ONE TO ONE FEEDING. CRUSH CRUSHABLE MEDS AND ADD TO APPLESAUCE PER RD, CHANGE TO CCHO-LOW. SEND HIGH AMANDA SUP IF NEEDS. SKILLED DYSPHAGIA MANAGEMENT AND TX AND COG-COM EVAL/TX EDUCATED/TRAINED STAFF (RN MIN) IN POSTED ASPIRATION/REFLUX PRECAUTIONS
--- NOTE | 2020-03-04 15:26 | Nephrology Progress Note ---
Assessment/Plan Problem List: (1) Hypernatremia (2) Dehydration (3) Pyelonephritis (4) Hyperglycemic crisis due to diabetes mellitus (5) Altered mental status Plan glu to 50'snsulin reduced iv adjusted Subjective ROS Limited/Unobtainable: Yes Objective Objective Last 24 Hour Vital Signs Date Time Temp Pulse Resp B/P (MAP) Pulse Ox O2 Delivery O2 Flow Rate FiO2 03/04/20 12:00 Room Air 03/04/20 11:52 80 03/04/20 11:42 97.0 85 18 135/67 (89) 96 03/04/20 08:12 88 153/80 03/04/20 08:00 97.6 80 18 164/76 (105) 96 03/04/20 08:00 91 03/04/20 08:00 Room Air 03/04/20 04:00 98.0 70 18 150/68 (95) 98 03/04/20 04:00 Room Air 03/04/20 04:00 88 03/04/20 00:00 91 03/04/20 00:00 Room Air 03/04/20 00:00 98.4 86 18 146/87 (106) 99 03/03/20 20:00 95 03/03/20 20:00 97.8 93 18 155/92 (113) 97 03/03/20 20:00 Room Air 03/03/20 16:00 98.1 98 18 161/100 (120) 96 03/03/20 16:00 77 03/03/20 16:00 Room Air Intake and Output 03/03/20 03/04/20 19:00 07:00 Intake Total 1857.5 ml 1000 ml Output Total 2400 ml 500 ml Balance -542.5 ml 500 ml Intake Oral 400 ml IV Total 1457.5 ml 1000 ml Output Urine Total 2400 ml 500 ml Laboratory Tests 03/04/20 04:00: Sodium Level 150H, Potassium Level 4.9, Chloride Level 118H, Carbon Dioxide Level 18L, Anion Gap 14, Blood Urea Nitrogen 16, Creatinine 0.7, Estimat Glomerular Filtration Rate > 60, Glucose Level 93, Calcium Level 8.4L, Phosphorus Level 2.1L, Magnesium Level 1.9 03/04/20 10:55: Stool Occult Blood [Pending] Height (Feet): 5 Height (Inches): 7.00 Weight (Pounds): 115 General Appearance: lethargic, confused EENT: normal ENT inspection Neck: normal alignment Cardiovascular: normal rate, regular rhythm Respiratory/Chest: lungs clear Abdomen: non tender Extremities: no edema Neurologic: disoriented Jose Martin Estevez MD Mar 04, 2020 15:26
[2020-03-04 16:00] VITALS: BP 78/67
--- NOTE | 2020-03-04 16:45 | NUR ---
NURSE NOTES:WOUND CARE NOTES:Pt presented on admission with Resolving pressure injury L medial malleolus. Base of wound pale pink,dry with dry black borders. An area of hyperpigmentation with small callus in center noted L hallux. Resolved pressure injury R Hallux.Small dry callused area in center with surrounding hyperpigmentation. No other skin concerns noted. Tx.Plan: Apply Moisture Barrier Paste to Sacrum. Cover with Optifoam drsg. Change every 3 days and prn. Apply Cavilon Skin Barrier to both heels. Cover each heel with Optifoam drsg.Change every 7 days and prn. Apply Cavilon Skin Barrier to Malleoli both feet. Cover each Malleolus with Optifoam drsgs. Change every 7 days and prn. Reposition at least every 2 hours or as tolerated. Off-load heels with pillow.
--- NOTE | 2020-03-04 18:04 | NUR ---
CASE MANAGEMENT: REVIEW 79 YEAR OLD FEMALE BIBA FROM [facility] CC: AMS . ELEVATED BLOOD GLUCOSE 800 SI: DEHYDRATION . RENAL FAILURE . PYELONEPHRITIS . DM T 97.2 HR 100 RR 16 BP 127/107 SAT 97% ROOM AIR WBC 18.7 NA 158 UA: LEUKOCYTE ESTERASE 3+ KETONES 3+ RBC 20-30 BACTERIA MANY IS: VANCO IV X1 ZOSYN IV X1 ZOFRAN IV X1 NS IVF BOLUS X1 PATIENT ADMITTED TO STEP DOWN UNIT DCP: PATIENT IS FROM [facility]
--- NOTE | 2020-03-04 19:11 | NUR ---
HAND-OFF: Report given to David DE LOS SANTOS. Pt remains stable.
--- NOTE | 2020-03-04 19:13 | NUR ---
NURSE NOTES: Received patient from MAGALI Velarde. Patient is aaox1, vss, on monitoring and evaluation advisor, and cooperative. Patient is on room air, has a Purewick, and skin issues noted. IV site is on her left forearm 22g and right wrist and running 1/2NS with KCL 20mEqs at 100mL/hr. Bed in lowest position, call light in reach x3 bed rails are up and bed is locked. Will continue to monitor.
[2020-03-04 20:00] VITALS: BP 148/75
[2020-03-04] MEDS ORDERED: Levemir Flexpen SUBQ SCH (21:00)
[2020-03-04] MEDS ORDERED: Miralax 17gm pkt ORAL SCH (21:00)
[2020-03-04] MEDS: Atorvastatin 20mg tab ORAL SCH (21:38)
[2020-03-05] VITALS (7 sets, daily range): BP systolic 129–154; BP diastolic 60–86
[2020-03-05] MEDS: 1/2NS w/KCl 20mEq 1000ml 1,000 ML IV SCH (03:56)
[2020-03-05] MEDS: NovoLOG Insulin Flexpen SUBQ SCH ×4 (06:24→21:04)
--- NOTE | 2020-03-05 07:00 | Progress Note ---
DATE: 03/04/2020 CARDIOLOGY PROGRESS NOTE SUBJECTIVE: The patient seen and evaluated. Time of dictation does not match time of evaluation. There has been no change in review of systems from my prior dictations. The patient had an episode of hypoglycemia. Insulin dosing was decreased. The patient remains on IV fluids. She is more alert and cooperative. COVID-19 swab is negative. OBJECTIVE: VITAL SIGNS: Blood pressure 150/68, pulse 78, respiratory rate 18, afebrile, room air oxygen 98%. LUNGS: Good breath sounds. HEART: Regular rhythm and rate. Normal S1, S2. ABDOMEN: Soft. EXTREMITIES: No edema. Monitor sinus rhythm. No recurring atrial fibrillation. Stool occult blood pending. Sodium 150, potassium 4.9, bicarb 18. Phosphorus 2.1 and magnesium 1.9. IMPRESSION: 1. Dehydration. 2. Hypernatremia. 3. Metabolic encephalopathy. 4. Toxic encephalopathy. 5. Hypophosphatemia. 6. Paroxysmal atrial fibrillation. 7. Hypertensive heart disease with rising blood pressure trend. 8. Resolved lactic acidosis. 9. Persisting metabolic acidosis. 10. Insulin-requiring diabetes mellitus. PLAN: 1. Continue hypotonic IV fluid hydration. 2. Titrate insulin. 3. Beta-randall added and to be titrated with additional antihypertensive medications to follow as needed. Rory Dickson M.D. DR: Veronica JOB#: [id number] CC:
--- NOTE | 2020-03-05 07:20 | NUR ---
HAND-OFF: Report given to MAGALI Zarate.
--- NOTE | 2020-03-05 07:20 | NUR ---
NURSE NOTES: Received report from Forrest DE LOS SANTOS. Patient AO x 1-2, awake and alert, cooperative. Patient on room air, breathing even and unlabored. 1/2 NS w/ 20 mEq KCl running at 100ml/hr in left forearm 22g IV. Skin issues noted, Purewick intact. Bed in lowest position, call light within reach, bed rails up x3, will continue to monitor.
--- NOTE | 2020-03-05 07:45 | NUR ---
NURSE NOTES: Patient attempted to get out of bed, pulled out IV. Patient redirected and safely assisted back into bed. Gauze place over IV site, with no complications.
--- NOTE | 2020-03-05 08:30 | NUR ---
NURSE NOTES: Patient refusing AM lab draw, patient screaming that she wants to be "put asleep" if we are going to draw her blood. Attempting to hit quality assurance lab technician when she moves closer to patient.
[2020-03-05] MEDS ORDERED: Heparin 5000 units/ml inj SUBQ SCH (09:00)
--- NOTE | 2020-03-05 09:01 | Nephrology Progress Note ---
Assessment/Plan Problem List: (1) Hypernatremia (2) Dehydration (3) Pyelonephritis (4) Hyperglycemic crisis due to diabetes mellitus (5) Altered mental status Plan iv adjusted, gllu betteer controlled Subjective ROS Limited/Unobtainable: Yes Objective Objective Last 24 Hour Vital Signs Date Time Temp Pulse Resp B/P (MAP) Pulse Ox O2 Delivery O2 Flow Rate FiO2 03/05/20 04:00 Room Air 03/05/20 04:00 81 03/05/20 04:00 98.0 84 20 154/82 (106) 94 03/05/20 00:00 97.9 80 20 129/68 (88) 95 03/05/20 00:00 78 03/05/20 00:00 Room Air 03/04/20 21:37 87 148/75 03/04/20 20:00 Room Air 03/04/20 20:00 97.7 87 19 148/75 (99) 98 03/04/20 20:00 85 03/04/20 16:00 97.5 83 21 78/67 (71) 96 03/04/20 16:00 72 03/04/20 16:00 Room Air 03/04/20 12:00 Room Air 03/04/20 11:52 80 03/04/20 11:42 97.0 85 18 135/67 (89) 96 Intake and Output 03/04/20 03/05/20 19:00 07:00 Intake Total 1900 ml 800 ml Output Total 550 ml 400 ml Balance 1350 ml 400 ml Intake Oral 700 ml IV Total 1200 ml 800 ml Output Urine Total 550 ml 400 ml # Voids 2 1 # Bowel Movements 4 Laboratory Tests 03/04/20 10:55: Stool Occult Blood [Pending] Height (Feet): 5 Height (Inches): 7.00 Weight (Pounds): 115 General Appearance: lethargic, confused EENT: normal ENT inspection Neck: normal alignment Cardiovascular: regular rhythm Respiratory/Chest: lungs clear Abdomen: non tender, soft Extremities: no edema Neurologic: disoriented Jose Martin Estevez MD Mar 05, 2020 09:01
--- NOTE | 2020-03-05 09:36 | General Progress Note ---
Assessment/Plan Status: stable, not improved Assessment/Plan: 1. History of diabetes. 2. Hypertension. 3. Coronary artery disease and myocardial infarction. 4. COPD. 5. GERD. 6. CVA. 7. Dementia. 8. Psychiatric disorder including schizophrenia 9. Coffee ground emesis stable H&H ppi fu labs push po's add bowel regimen now on 100 cc/h ivf GI procedures on hold given stable H&H Subjective ROS Limited/Unobtainable: No Allergies: Coded Allergies: No Known Allergies (Unverified , 03/01/20) Objective Last 24 Hour Vital Signs Date Time Temp Pulse Resp B/P (MAP) Pulse Ox O2 Delivery O2 Flow Rate FiO2 03/05/20 04:00 Room Air 03/05/20 04:00 81 03/05/20 04:00 98.0 84 20 154/82 (106) 94 03/05/20 00:00 97.9 80 20 129/68 (88) 95 03/05/20 00:00 78 03/05/20 00:00 Room Air 03/04/20 21:37 87 148/75 03/04/20 20:00 Room Air 03/04/20 20:00 97.7 87 19 148/75 (99) 98 03/04/20 20:00 85 03/04/20 16:00 97.5 83 21 78/67 (71) 96 03/04/20 16:00 72 03/04/20 16:00 Room Air 03/04/20 12:00 Room Air 03/04/20 11:52 80 03/04/20 11:42 97.0 85 18 135/67 (89) 96 Intake and Output 03/04/20 03/05/20 19:00 07:00 Intake Total 1900 ml 800 ml Output Total 550 ml 400 ml Balance 1350 ml 400 ml Intake Oral 700 ml IV Total 1200 ml 800 ml Output Urine Total 550 ml 400 ml # Voids 2 1 # Bowel Movements 4 Laboratory Tests 03/04/20 10:55: Stool Occult Blood [Pending] Height (Feet): 5 Height (Inches): 7.00 Weight (Pounds): 115 General Appearance: no apparent distress EENT: normal ENT inspection Neck: supple Cardiovascular: normal rate Respiratory/Chest: decreased breath sounds Abdomen: normal bowel sounds, non tender, soft Extremities: non-tender Pollo Hoover MD Mar 05, 2020 09:36
[2020-03-05] MEDS: Pantoprazole Inj IVP SCH ×2 (10:17→21:02)
[2020-03-05] MEDS: Levofloxacin 500mg tab ORAL SCH (10:17)
[2020-03-05] MEDS: sitaGLIPtin 50mg tab ORAL SCH (10:17)
[2020-03-05] MEDS: Ascorbic Acid 500mg tab ORAL SCH (10:18)
--- NOTE | 2020-03-05 11:00 | NUR ---
NURSE NOTES: 20g IV started in left forearm. AM labs drawn, IV fluid 1/2 NS started in IV.
--- NOTE | 2020-03-05 11:02 | General Progress Note ---
Assessment/Plan Problem List: (1) Pyelonephritis ICD Codes: N12 - Tubulo-interstitial nephritis, not specified as acute or chronic SNOMED: 95556063, 69158497 (2) Renal failure ICD Codes: N19 - Unspecified kidney failure SNOMED: 29598478, 60551939 (3) Coffee ground emesis ICD Codes: K92.0 - Hematemesis SNOMED: 98156555, 27251785 (4) Hyperglycemic crisis due to diabetes mellitus ICD Codes: E11.65 - Type 2 diabetes mellitus with hyperglycemia SNOMED: 849899307, 77502742 (5) Altered mental status ICD Codes: R41.82 - Altered mental status, unspecified SNOMED: 401392921 Status: stable, not improved Assessment/Plan: Continue IV hydration.Monitor lytes and volume status. Insulin sliding scale. Monitor Accu-Cheks. encourage po. asp precautions IV antibiotics for UTI and sepsis cultures reviewed. ID noted DVT and stress ulcer prophylaxis Turn every 2 hours transfer to med surg Subjective ROS Limited/Unobtainable: No Constitutional: Reports: malaise, weakness HEENT: Reports: no symptoms Cardiovascular: Reports: no symptoms Respiratory: Reports: cough Gastrointestinal/Abdominal: Reports: no symptoms Genitourinary: Reports: no symptoms Neurologic/Psychiatric: Reports: pre-existing deficit Endocrine: Reports: no symptoms Hematologic/Lymphatic: Reports: no symptoms Allergies: Coded Allergies: No Known Allergies (Unverified , 03/01/20) All Systems: reviewed and negative except above Subjective no events. stable. eating better. on ivf. Na trending down. no fevers. on iv abx for uti. Objective Last 24 Hour Vital Signs Date Time Temp Pulse Resp B/P (MAP) Pulse Ox O2 Delivery O2 Flow Rate FiO2 03/05/20 10:28 109 150/77 03/05/20 08:00 97.4 17 150/77 (101) 96 03/05/20 07:51 89 03/05/20 04:00 Room Air 03/05/20 04:00 81 03/05/20 04:00 98.0 84 20 154/82 (106) 94 03/05/20 00:00 97.9 80 20 129/68 (88) 95 03/05/20 00:00 78 03/05/20 00:00 Room Air 4/20/20 21:37 87 148/75 03/04/20 20:00 Room Air 03/04/20 20:00 97.7 87 19 148/75 (99) 98 03/04/20 20:00 85 03/04/20 16:00 97.5 83 21 78/67 (71) 96 03/04/20 16:00 72 03/04/20 16:00 Room Air 03/04/20 12:00 Room Air 03/04/20 11:52 80 03/04/20 11:42 97.0 85 18 135/67 (89) 96 Intake and Output 03/04/20 03/05/20 19:00 07:00 Intake Total 1900 ml 800 ml Output Total 550 ml 400 ml Balance 1350 ml 400 ml Intake Oral 700 ml IV Total 1200 ml 800 ml Output Urine Total 550 ml 400 ml # Voids 2 1 # Bowel Movements 4 Height (Feet): 5 Height (Inches): 7.00 Weight (Pounds): 115 Objective General Appearance: WD/WN, alert, less confused. 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
--- NOTE | 2020-03-05 11:09 | Infectious Diseases Prog Note ---
Assessment/Plan Assessment/Plan antibiotics : levoquin A 1. klebsiella esbl UTI 2. Diabetes. 3. Hypertension. 4. COVID-19 test negative 5. COPD. P 1. continue levoquin po 2 more days 2. will follow up cultures Subjective Constitutional: Denies: fever, chills Respiratory: Reports: dry cough; Denies: shortness of breath Gastrointestinal/Abdominal: Denies: nausea, vomiting, diarrhea Musculoskeletal: Denies: pain Allergies: Coded Allergies: No Known Allergies (Unverified , 03/01/20) Objective Vital Signs Last 24 Hour Vital Signs Date Time Temp Pulse Resp B/P (MAP) Pulse Ox O2 Delivery O2 Flow Rate FiO2 03/05/20 10:28 109 150/77 03/05/20 08:00 97.4 17 150/77 (101) 96 03/05/20 07:51 89 03/05/20 04:00 Room Air 03/05/20 04:00 81 03/05/20 04:00 98.0 84 20 154/82 (106) 94 03/05/20 00:00 97.9 80 20 129/68 (88) 95 03/05/20 00:00 78 03/05/20 00:00 Room Air 03/04/20 21:37 87 148/75 03/04/20 20:00 Room Air 03/04/20 20:00 97.7 87 19 148/75 (99) 98 03/04/20 20:00 85 03/04/20 16:00 97.5 83 21 78/67 (71) 96 03/04/20 16:00 72 03/04/20 16:00 Room Air 03/04/20 12:00 Room Air 03/04/20 11:52 80 03/04/20 11:42 97.0 85 18 135/67 (89) 96 Height (Feet): 5 Height (Inches): 7.00 Weight (Pounds): 115 Respiratory/Chest: lungs clear Cardiovascular: normal rate, regular rhythm, no gallop/murmur Abdomen: other - GT Extremities: no edema Current Medications Medications (Trade) Dose Ordered Sig/Roberto Route PRN Reason Start Time Stop Time Status Last Admin Dose Admin Acetaminophen (Tylenol) 650 mg Q4H PRN ORAL mild pain/fever 03/01/20 18:30 03/31/20 18:29 Al Hydroxide/Mg Hydroxide (Mylanta) 30 ml Q4H PRN ORAL Dyspepsia 03/04/20 13:45 03/31/20 20:14 Albuterol Sulfate (Proventil MDI) 2 puff Q4H PRN INH Shortness of Breath 03/02/20 02:00 05/31/20 01:59 Aripiprazole (Abilify) 5 mg DAILY ORAL 03/02/20 09:00 04/16/20 08:59 03/05/20 10:17 Ascorbic Acid (Vitamin C) 500 mg DAILY ORAL 03/02/20 09:00 04/01/20 08:59 03/05/20 10:18 Atorvastatin Calcium (Lipitor) 20 mg BEDTIME ORAL 03/01/20 21:00 05/30/20 20:59 03/04/20 21:38 Dextrose (Dextrose 50%) 25 ml Q30M PRN IV Hypoglycemia 03/01/20 18:30 05/30/20 18:29 Dextrose (Dextrose 50%) 50 ml Q30M PRN IV Hypoglycemia 03/01/20 18:30 05/30/20 18:29 03/04/20 05:50 Docusate Sodium (Colace) 100 mg BIDPRN PRN ORAL Constipation 03/04/20 13:45 04/03/20 13:44 Heparin Sodium (Porcine) (Heparin 5000 units/ml) 5,000 units EVERY 12 HOURS SUBQ 03/05/20 09:00 04/19/20 08:59 03/05/20 10:20 Insulin Aspart (NovoLOG) BEFORE MEALS AND HS SUBQ 03/01/20 21:00 05/30/20 20:59 03/04/20 21:36 Insulin Detemir (Levemir) 10 units BEDTIME SUBQ 03/04/20 21:00 06/02/20 20:59 03/04/20 21:37 Levofloxacin (Levaquin) 500 mg DAILY ORAL 03/03/20 12:00 03/10/20 11:59 03/05/20 10:17 Levothyroxine Sodium (Synthroid) 150 mcg 0630 ORAL 03/02/20 06:30 04/01/20 06:29 03/04/20 05:49 Metoprolol Tartrate (Lopressor) 25 mg Q12HR ORAL 03/04/20 09:00 06/02/20 08:59 03/05/20 10:28 Mirtazapine (Remeron) 7.5 mg BEDTIME ORAL 03/01/20 21:00 05/30/20 20:59 03/04/20 21:37 Multivitamins (Multivitamins) 1 tab DAILY ORAL 03/02/20 09:00 04/01/20 08:59 03/05/20 10:17 Pantoprazole (Protonix) 40 mg EVERY 12 HOURS IVP 03/02/20 09:00 04/01/20 08:59 03/05/20 10:17 Polyethylene Glycol (Miralax) 17 gm BEDTIME ORAL 03/04/20 21:00 04/03/20 20:59 Sitagliptin Phosphate (Januvia) 100 mg DAILY ORAL 03/02/20 09:00 04/01/20 08:59 03/05/20 10:17 Sodium Chloride 1,000 ml @ 75 mls/hr [id number] IV 03/05/20 09:01 04/04/20 09:00 03/05/20 11:07 Clau Tinsley MD Mar 05, 2020 11:09
[2020-03-05 11:17] LABS: BASOPHILS % (AUTO) 0.8 % (0.0-2.0); EOSINOPHILS % (AUTO) 1.3 % (0.0-3.0); HEMATOCRIT 42.3 % (37.0-47.0); HEMOGLOBIN 14.2 G/DL (12.0-16.0); LYMPHOCYTES % (AUTO) 12.9 % (20.0-45.0); MEAN CORPUSCULAR VOLUME 81 FL (80-99); MONOCYTES % (AUTO) 5.9 % (1.0-10.0); NEUTROPHILS % (AUTO) 79.2 % (45.0-75.0); PLATELET COUNT 204 K/UL (150-450); RED BLOOD COUNT 5.25 M/UL (4.20-5.40); RED CELL DISTRIBUTION WIDTH 13.3 % (11.6-14.8); WHITE BLOOD COUNT 10.7 K/UL (4.8-10.8)
[2020-03-05 11:47] LABS: ANION GAP 13 mmol/L (5-15); BLOOD UREA NITROGEN 17 mg/dL (7-18); CALCIUM 8.9 MG/DL (8.5-10.1); CARBON DIOXIDE 21 MMOL/L (21-32); CHLORIDE 110 MMOL/L (98-107); CREATININE 0.8 MG/DL (0.55-1.30); SODIUM 144 MMOL/L (136-145)
--- NOTE | 2020-03-05 12:22 | NUR ---
RD ASSESSMENT & RECOMMENDATIONS SEE CARE ACTIVITY FOR COMPLETE ASSESSMENT DAILY ESTIMATED NEEDS: Needs based on Wounds/ 57kg 25-30 kcals/kg 3050-9125 total kcals 1.25-1.5 g protein/kg 71-85 g total protein 25-30 mL/kg 7250-2851 total fluid mLs NUTRITION DIAGNOSIS: * Increased kcal/prot needs R/T wound healing as evidenced by admitted resolving pressure injury at L medial malleolus. CURRENT DIET:CCHO LOW, pureed moist w/ NTL PO DIET RECOMMENDATIONS: CCHO LOW/ texture per MUSIC GRAPHER ADDITIONAL RECOMMENDATIONS: * Per SNF xn=778qkc on 02/17/20 -> obtain calibrated bedscale wt * Monitor for hypoglycemia, need to further decrease or DC HS levemir -> Encourage HS snack consumption, record % intake of HS snack * Add MVI as supplement to improve skin integrity * Monitor lytes, replete as needed .
--- NOTE | 2020-03-05 12:27 | Pulmonology Progress Note ---
Assessment/Plan Assessment/Plan 1. Diabetes out of control. 2. Hyperosmotic nonketotic state. 3. Lactic acidemia. 4. Metabolic acidosis. 5. Leukocytosis. 6. Possible sepsis. 7. Hemoconcentration. 8. COPD per history. No significant respiratory distress at this time. 9. History of CAD. Chest x-ray is negative. PLAN monitor lytes monitor blood sugars antibiotic per ID close followup respiratory ok monitor oxygen needs follow up for change and recommend impression, plan, and exam edited and reviewed in detail care discussed with RN Subjective ROS Limited/Unobtainable: Yes Allergies: Coded Allergies: No Known Allergies (Unverified , 03/01/20) Subjective care noted confused d/w nursing Objective Last 24 Hour Vital Signs Date Time Temp Pulse Resp B/P (MAP) Pulse Ox O2 Delivery O2 Flow Rate FiO2 03/05/20 10:28 109 150/77 03/05/20 08:00 Room Air 03/05/20 08:00 97.4 17 150/77 (101) 96 03/05/20 07:51 89 03/05/20 04:00 Room Air 03/05/20 04:00 81 03/05/20 04:00 98.0 84 20 154/82 (106) 94 03/05/20 00:00 97.9 80 20 129/68 (88) 95 03/05/20 00:00 78 03/05/20 00:00 Room Air 03/04/20 21:37 87 148/75 03/04/20 20:00 Room Air 03/04/20 20:00 97.7 87 19 148/75 (99) 98 03/04/20 20:00 85 03/04/20 16:00 97.5 83 21 78/67 (71) 96 03/04/20 16:00 72 03/04/20 16:00 Room Air Intake and Output 03/04/20 03/05/20 19:00 07:00 Intake Total 1900 ml 800 ml Output Total 550 ml 400 ml Balance 1350 ml 400 ml Intake Oral 700 ml IV Total 1200 ml 800 ml Output Urine Total 550 ml 400 ml # Voids 2 1 # Bowel Movements 4 Objective WDWN NAD reduced breath sounds bilaterally without rhonchi or wheeze [id number] without MRG NABS nontender no HSM no CC mild edema nonfocal confused Laboratory Tests 03/05/20 10:45: White Blood Count 10.7, Red Blood Count 5.25, Hemoglobin 14.2, Hematocrit 42.3, Mean Corpuscular Volume 81, Mean Corpuscular Hemoglobin 27.0, Mean Corpuscular Hemoglobin Concent 33.5, Red Cell Distribution Width 13.3, Platelet Count 204, Mean Platelet Volume 8.2, Neutrophils (%) (Auto) 79.2H, Lymphocytes (%) (Auto) 12.9L, Monocytes (%) (Auto) 5.9, Eosinophils (%) (Auto) 1.3, Basophils (%) (Auto ) 0.8, Sodium Level 144, Potassium Level 4.0, Chloride Level 110H, Carbon Dioxide Level 21, Anion Gap 13, Blood Urea Nitrogen 17, Creatinine 0.8, Estimat Glomerular Filtration Rate > 60, Glucose Level 298#H, Calcium Level 8.9 Current Medications Medications (Trade) Dose Ordered Sig/Roberto Route PRN Reason Start Time Stop Time Status Last Admin Dose Admin Acetaminophen (Tylenol) 650 mg Q4H PRN ORAL mild pain/fever 03/01/20 18:30 03/31/20 18:29 Al Hydroxide/Mg Hydroxide (Mylanta) 30 ml Q4H PRN ORAL Dyspepsia 03/04/20 13:45 03/31/20 20:14 Albuterol Sulfate (Proventil MDI) 2 puff Q4H PRN INH Shortness of Breath 03/02/20 02:00 05/31/20 01:59 Aripiprazole (Abilify) 5 mg DAILY ORAL 03/02/20 09:00 04/16/20 08:59 03/05/20 10:17 Ascorbic Acid (Vitamin C) 500 mg DAILY ORAL 03/02/20 09:00 04/01/20 08:59 03/05/20 10:18 Atorvastatin Calcium (Lipitor) 20 mg BEDTIME ORAL 03/01/20 21:00 05/30/20 20:59 03/04/20 21:38 Dextrose (Dextrose 50%) 25 ml Q30M PRN IV Hypoglycemia 03/01/20 18:30 05/30/20 18:29 Dextrose (Dextrose 50%) 50 ml Q30M PRN IV Hypoglycemia 03/01/20 18:30 05/30/20 18:29 03/04/20 05:50 Docusate Sodium (Colace) 100 mg BIDPRN PRN ORAL Constipation 03/04/20 13:45 04/03/20 13:44 Heparin Sodium (Porcine) (Heparin 5000 units/ml) 5,000 units EVERY 12 HOURS SUBQ 03/05/20 09:00 04/19/20 08:59 03/05/20 10:20 Insulin Aspart (NovoLOG) BEFORE MEALS AND HS SUBQ 03/01/20 21:00 05/30/20 20:59 03/05/20 11:40 Insulin Detemir (Levemir) 10 units BEDTIME SUBQ 03/04/20 21:00 06/02/20 20:59 03/04/20 21:37 Levofloxacin (Levaquin) 500 mg DAILY ORAL 03/03/20 12:00 03/10/20 11:59 03/05/20 10:17 Levothyroxine Sodium (Synthroid) 150 mcg 0630 ORAL 03/02/20 06:30 04/01/20 06:29 03/04/20 05:49 Metoprolol Tartrate (Lopressor) 25 mg Q12HR ORAL 03/04/20 09:00 06/02/20 08:59 03/05/20 10:28 Mirtazapine (Remeron) 7.5 mg BEDTIME ORAL 03/01/20 21:00 05/30/20 20:59 03/04/20 21:37 Multivitamins (Multivitamins) 1 tab DAILY ORAL 03/02/20 09:00 04/01/20 08:59 03/05/20 10:17 Pantoprazole (Protonix) 40 mg EVERY 12 HOURS IVP 03/02/20 09:00 04/01/20 08:59 03/05/20 10:17 Polyethylene Glycol (Miralax) 17 gm BEDTIME ORAL 03/04/20 21:00 04/03/20 20:59 Sitagliptin Phosphate (Januvia) 100 mg DAILY ORAL 03/02/20 09:00 04/01/20 08:59 03/05/20 10:17 Sodium Chloride 1,000 ml @ 75 mls/hr [id number] IV 03/05/20 09:01 04/04/20 09:00 03/05/20 11:07 Russell Goyal MD Mar 05, 2020 12:27
--- NOTE | 2020-03-05 14:20 | NUR ---
NURSE NOTES: Patient attempting to get out of bed, pulled 2nd IV out. Patient safely redirected, patient in bed, AxO x 1, siderails up x 3. New IV placed 22 g in left forearm.
--- NOTE | 2020-03-05 14:45 | NUR ---
NURSE NOTES: Patient attempting to pull new IV out and attempting to get out of bed, redirected patient to stay in bed for safety. Left message w/ Amber at Dr Lopez's office at [phone] requesting an order for non-violent restraints.
--- NOTE | 2020-03-05 15:26 | NUR ---
CASE MANAGEMENT: REVIEW SI: DEHYDRATION . RENAL FAILURE . PYELONEPHRITIS . DM . LEG PAIN . COFFEE GROUND EMESIS T 97.4 HR 109 RR 17 BP 154/82 SAT 94% ROOM AIR GLUCOSE 298 COVID-19 NOT DETECTED VENOUS DUPLEX SCAN DONALDO LEG -- NO EVIDENCE OF LOWER EXTREMITY DVT BILATERALLY STOOL OCCULT BLOOD [PENDING] IS: NS IVF @ 75ML/HR LEVAQUIN PO QD LEVEMIR [address] BARIUM SWALLOW STUDY STEP DOWN UNIT STATUS DCP: PATIENT IS FROM [facility]
[2020-03-05] MEDS ORDERED: Albuterol 90mcg Inhaler 8gm INH PRN (18:00)
--- NOTE | 2020-03-05 18:17 | NUR ---
TRANSFER TO FLOOR: Patient transferred to Tele per Dr. Lopez. Patient in stable condition. VSS, patient breathing even and unlabored on room air. Report given to Heriberto DE LOS SANTOS Belongings and medications given to Heriberto DE LOS SANTOS. Family and or S/O informed of transfer.
--- NOTE | 2020-03-05 19:15 | NUR ---
NURSE NOTES: Received report from MAGALI Louis. Patient AOx1. Patient resting on bed, in semi-mccord's position. No signs of acute distress or shortness of breath. On room air. IV intact and flushed; no erythema, bleeding, or infiltration. Bed in lowest position. Brakes engaged, bed rails raised x3. Call light placed within reach. Will continue to monitor.
[2020-03-05] MEDS: Miralax 17gm pkt ORAL SCH (21:00)
[2020-03-05] MEDS: Atorvastatin 20mg tab ORAL SCH (21:02)
[2020-03-05] MEDS: Heparin 5000 units/ml inj SUBQ SCH (21:03)
[2020-03-05] MEDS: Levemir Flexpen SUBQ SCH (21:04)
[2020-03-06] VITALS (7 sets, daily range): BP systolic 104–160; BP diastolic 64–88
[2020-03-06] MEDS: NovoLOG Insulin Flexpen SUBQ SCH ×4 (06:30→21:00)
--- NOTE | 2020-03-06 07:31 | NUR ---
HAND-OFF: Report given to MAGALI Dan. Plan of care endorsed.
--- NOTE | 2020-03-06 07:32 | NUR ---
NURSE NOTES: Received patient in bed awake. No SOB or acute distress. IV line intact. Bilateral soft wrist restraints in place, peripheral pulses palpable, no skin issues noted. Wound dressings intact. HOB elevated. Bed locked in lowest position. Call light within reach. Will continue plan of care.
--- NOTE | 2020-03-06 08:12 | General Progress Note ---
Assessment/Plan Status: stable, not improved Assessment/Plan: 1. History of diabetes. 2. Hypertension. 3. Coronary artery disease and myocardial infarction. 4. COPD. 5. GERD. 6. CVA. 7. Dementia. 8. Psychiatric disorder including schizophrenia 9. Coffee ground emesis stable H&H ppi fu labs push po's neg stool ob bowel regimen GI procedures on hold given stable H&H and neg stool ob Subjective ROS Limited/Unobtainable: No Allergies: Coded Allergies: No Known Allergies (Unverified , 03/01/20) Objective Last 24 Hour Vital Signs Date Time Temp Pulse Resp B/P (MAP) Pulse Ox O2 Delivery O2 Flow Rate FiO2 03/06/20 04:00 82 03/06/20 04:00 Room Air 03/06/20 04:00 97.9 85 20 160/88 (112) 95 03/06/20 00:01 97.4 76 16 134/64 (87) 93 03/06/20 00:00 Room Air 03/06/20 00:00 97.4 16 134/64 (87) 93 03/06/20 00:00 67 03/05/20 21:00 85 138/60 03/05/20 20:01 97.7 85 17 138/60 (86) 93 03/05/20 20:00 97.7 17 138/60 (86) 93 03/05/20 20:00 89 03/05/20 20:00 Room Air 03/05/20 16:00 97.6 19 148/81 (103) 96 03/05/20 16:00 80 03/05/20 16:00 Room Air 03/05/20 12:00 75 03/05/20 12:00 97.5 20 151/86 (107) 94 03/05/20 12:00 80 03/05/20 12:00 Room Air 03/05/20 10:28 109 150/77 Intake and Output 03/05/20 03/06/20 19:00 07:00 # Voids 3 # Bowel Movements 3 Laboratory Tests 03/05/20 10:45: White Blood Count 10.7, Red Blood Count 5.25, Hemoglobin 14.2, Hematocrit 42.3, Mean Corpuscular Volume 81, Mean Corpuscular Hemoglobin 27.0, Mean Corpuscular Hemoglobin Concent 33.5, Red Cell Distribution Width 13.3, Platelet Count 204, Mean Platelet Volume 8.2, Neutrophils (%) (Auto) 79.2H, Lymphocytes (%) (Auto) 12.9L, Monocytes (%) (Auto) 5.9, Eosinophils (%) (Auto) 1.3, Basophils (%) (Auto ) 0.8, Sodium Level 144, Potassium Level 4.0, Chloride Level 110H, Carbon Dioxide Level 21, Anion Gap 13, Blood Urea Nitrogen 17, Creatinine 0.8, Estimat Glomerular Filtration Rate > 60, Glucose Level 298#H, Calcium Level 8.9 Height (Feet): 5 Height (Inches): 7.00 Weight (Pounds): 118 General Appearance: no apparent distress EENT: normal ENT inspection Neck: supple Cardiovascular: normal rate Respiratory/Chest: decreased breath sounds Abdomen: normal bowel sounds, non tender, soft Extremities: non-tender Pollo Hoover MD Mar 06, 2020 08:12
--- NOTE | 2020-03-06 09:00 | NUR ---
NURSE NOTES: IV line occluded. IV removed and reinserted to right hand using g22. Patient combative and noted with physical and verbal aggression.
--- NOTE | 2020-03-06 09:00 | Progress Note ---
DATE: 03/05/2020 CARDIOLOGY PROGRESS NOTE SUBJECTIVE: The patient's condition continues to improve. She remains on IV fluids, antimicrobials with rising blood pressure parameters. PHYSICAL EXAMINATION: VITAL SIGNS: Blood pressure 150/77, pulse 109, respirations 17. Monitored rhythm, sinus. LUNGS: Clear. CARDIAC: Regular. No new murmur. ABDOMEN: Soft. EXTREMITIES: No edema. LABORATORY DATA: White count 10.7, hemoglobin 4.2. Stool occult blood negative. Potassium 4, BUN 17, creatinine 0.8, sodium 144. IMPRESSION: 1. Dehydration, hypernatremia and hyperchloremia, improved. 2. Labile glucose in the setting of type 2 diabetes mellitus. 3. Hypophosphatemia on replacement therapy. 4. Multidrug-resistant urinary tract infection with Klebsiella. 5. Hypothyroidism on replacement therapy. 6. Paroxysmal atrial fibrillation. 7. Resolved metabolic acidosis. 8. Metabolic encephalopathy and toxic encephalopathy. PLAN: IV fluids adjusted. Phosphorus replacement. Titrate antihypertensives including beta-randall. Avoid beta agonist. DVT prophylaxis. Rory Dickson M.D. DR: IZAIAH JOB#: [id number] CC:
[2020-03-06 09:04] LABS: BASOPHILS % (AUTO) 0.8 % (0.0-2.0); HEMOGLOBIN 12.8 G/DL (12.0-16.0); LYMPHOCYTES % (AUTO) 23.6 % (20.0-45.0); MEAN CORPUSCULAR VOLUME 79 FL (80-99); MONOCYTES % (AUTO) 8.6 % (1.0-10.0); NEUTROPHILS % (AUTO) 64.1 % (45.0-75.0); PLATELET COUNT 202 K/UL (150-450); RED BLOOD COUNT 4.67 M/UL (4.20-5.40); WHITE BLOOD COUNT 8.2 K/UL (4.8-10.8)
[2020-03-06] MEDS: Pantoprazole Inj IVP SCH (09:12)
[2020-03-06] MEDS: Ascorbic Acid 500mg tab ORAL SCH (09:13)
[2020-03-06] MEDS: Levofloxacin 500mg tab ORAL SCH (09:14)
[2020-03-06] MEDS: Metoprolol Tartrate 50mg tab ORAL SCH ×2 (09:14→21:53)
[2020-03-06] MEDS: Heparin 5000 units/ml inj SUBQ SCH ×2 (09:17→21:54)
[2020-03-06 09:18] LABS: ANION GAP 11 mmol/L (5-15); BLOOD UREA NITROGEN 12 mg/dL (7-18); CALCIUM 8.3 MG/DL (8.5-10.1); CARBON DIOXIDE 23 MMOL/L (21-32); CHLORIDE 114 MMOL/L (98-107); CREATININE 0.7 MG/DL (0.55-1.30); POTASSIUM 3.2 MMOL/L (3.5-5.1); SODIUM 148 MMOL/L (136-145)
--- NOTE | 2020-03-06 09:37 | Nephrology Progress Note ---
Assessment/Plan Problem List: (1) Hypernatremia (2) Dehydration (3) Pyelonephritis (4) Hyperglycemic crisis due to diabetes mellitus (5) Altered mental status (6) Infection due to ESBL-producing Klebsiella pneumoniae (7) Hypokalemia (8) Hypophosphatemia Plan iv adjusted, gllu better controlled Subjective ROS Limited/Unobtainable: Yes Objective Objective Last 24 Hour Vital Signs Date Time Temp Pulse Resp B/P (MAP) Pulse Ox O2 Delivery O2 Flow Rate FiO2 03/06/20 09:14 83 145/75 03/06/20 08:00 97.9 83 20 145/75 (98) 96 03/06/20 04:00 82 03/06/20 04:00 Room Air 03/06/20 04:00 97.9 85 20 160/88 (112) 95 03/06/20 00:01 97.4 76 16 134/64 (87) 93 03/06/20 00:00 Room Air 03/06/20 00:00 97.4 16 134/64 (87) 93 03/06/20 00:00 67 03/05/20 21:00 85 138/60 03/05/20 20:01 97.7 85 17 138/60 (86) 93 03/05/20 20:00 97.7 17 138/60 (86) 93 03/05/20 20:00 89 03/05/20 20:00 Room Air 03/05/20 16:00 97.6 19 148/81 (103) 96 03/05/20 16:00 80 03/05/20 16:00 Room Air 03/05/20 12:00 75 03/05/20 12:00 97.5 20 151/86 (107) 94 03/05/20 12:00 80 03/05/20 12:00 Room Air 03/05/20 10:28 109 150/77 Intake and Output 03/05/20 03/06/20 19:00 07:00 # Voids 3 # Bowel Movements 3 Laboratory Tests 03/05/20 10:45: White Blood Count 10.7, Red Blood Count 5.25, Hemoglobin 14.2, Hematocrit 42.3, Mean Corpuscular Volume 81, Mean Corpuscular Hemoglobin 27.0, Mean Corpuscular Hemoglobin Concent 33.5, Red Cell Distribution Width 13.3, Platelet Count 204, Mean Platelet Volume 8.2, Neutrophils (%) (Auto) 79.2H, Lymphocytes (%) (Auto) 12.9L, Monocytes (%) (Auto) 5.9, Eosinophils (%) (Auto) 1.3, Basophils (%) (Auto ) 0.8, Sodium Level 144, Potassium Level 4.0, Chloride Level 110H, Carbon Dioxide Level 21, Anion Gap 13, Blood Urea Nitrogen 17, Creatinine 0.8, Estimat Glomerular Filtration Rate > 60, Glucose Level 298#H, Calcium Level 8.9 03/06/20 08:00: White Blood Count 8.2, Red Blood Count 4.67, Hemoglobin 12.8, Hematocrit 37.0, Mean Corpuscular Volume 79L, Mean Corpuscular Hemoglobin 27.5, Mean Corpuscular Hemoglobin Concent 34.6, Red Cell Distribution Width 13.0, Platelet Count 202, Mean Platelet Volume 8.7, Neutrophils (%) (Auto) 64.1, Lymphocytes (%) (Auto) 23.6, Monocytes (%) (Auto) 8.6, Eosinophils (%) (Auto) 3.0, Basophils (%) (Auto ) 0.8, Sodium Level 148H, Potassium Level 3.2L, Chloride Level 114H, Carbon Dioxide Level 23, Anion Gap 11, Blood Urea Nitrogen 12, Creatinine 0.7, Estimat Glomerular Filtration Rate > 60, Glucose Level 115#H, Calcium Level 8.3L Height (Feet): 5 Height (Inches): 7.00 Weight (Pounds): 118 General Appearance: no apparent distress, alert, confused EENT: normal ENT inspection Neck: normal alignment Cardiovascular: normal rate Respiratory/Chest: lungs clear Abdomen: non tender, soft Neurologic: wire coater II-XII grossly normal Jose Martin Estevez MD Mar 06, 2020 09:37
--- NOTE | 2020-03-06 09:48 | Pulmonology Progress Note ---
Assessment/Plan Assessment/Plan 1. Diabetes out of control. 2. Hyperosmotic nonketotic state. 3. Lactic acidemia. 4. Metabolic acidosis. 5. Leukocytosis. 6. Possible sepsis. 7. Hemoconcentration. 8. COPD per history. No significant respiratory distress at this time. 9. History of CAD. Chest x-ray is negative. PLAN monitor lytes monitor blood sugars antibiotic per ID close followup respiratory status stable monitor oxygen needs follow up for change and recommend impression, plan, and exam edited and reviewed in detail care discussed with RN Subjective ROS Limited/Unobtainable: Yes Constitutional: Denies: fever, chills Gastrointestinal/Abdominal: Denies: nausea, vomiting, diarrhea Musculoskeletal: Denies: pain Allergies: Coded Allergies: No Known Allergies (Unverified , 03/01/20) All Systems: reviewed and negative except above Subjective care noted remains confused d/w nursing Objective Last 24 Hour Vital Signs Date Time Temp Pulse Resp B/P (MAP) Pulse Ox O2 Delivery O2 Flow Rate FiO2 03/06/20 09:14 83 145/75 03/06/20 08:00 97.9 83 20 145/75 (98) 96 03/06/20 04:00 82 03/06/20 04:00 Room Air 03/06/20 04:00 97.9 85 20 160/88 (112) 95 03/06/20 00:01 97.4 76 16 134/64 (87) 93 03/06/20 00:00 Room Air 03/06/20 00:00 97.4 16 134/64 (87) 93 03/06/20 00:00 67 03/05/20 21:00 85 138/60 03/05/20 20:01 97.7 85 17 138/60 (86) 93 03/05/20 20:00 97.7 17 138/60 (86) 93 03/05/20 20:00 89 03/05/20 20:00 Room Air 03/05/20 16:00 97.6 19 148/81 (103) 96 03/05/20 16:00 80 03/05/20 16:00 Room Air 03/05/20 12:00 75 03/05/20 12:00 97.5 20 151/86 (107) 94 03/05/20 12:00 80 03/05/20 12:00 Room Air 03/05/20 10:28 109 150/77 Intake and Output 03/05/20 03/06/20 19:00 07:00 # Voids 3 # Bowel Movements 3 Objective WDWN NAD reduced breath sounds bilaterally without rhonchi or wheeze [id number] without MRG NABS nontender no HSM no CC mild edema nonfocal confused reviewed and edited HEENT: mucous membranes moist, other - poor dentition Abdomen: other - GT Extremities: no edema Neurologic/Psychiatric: alert, responsive Laboratory Tests 03/05/20 10:45: White Blood Count 10.7, Red Blood Count 5.25, Hemoglobin 14.2, Hematocrit 42.3, Mean Corpuscular Volume 81, Mean Corpuscular Hemoglobin 27.0, Mean Corpuscular Hemoglobin Concent 33.5, Red Cell Distribution Width 13.3, Platelet Count 204, Mean Platelet Volume 8.2, Neutrophils (%) (Auto) 79.2H, Lymphocytes (%) (Auto) 12.9L, Monocytes (%) (Auto) 5.9, Eosinophils (%) (Auto) 1.3, Basophils (%) (Auto ) 0.8, Sodium Level 144, Potassium Level 4.0, Chloride Level 110H, Carbon Dioxide Level 21, Anion Gap 13, Blood Urea Nitrogen 17, Creatinine 0.8, Estimat Glomerular Filtration Rate > 60, Glucose Level 298#H, Calcium Level 8.9 03/06/20 08:00: White Blood Count 8.2, Red Blood Count 4.67, Hemoglobin 12.8, Hematocrit 37.0, Mean Corpuscular Volume 79L, Mean Corpuscular Hemoglobin 27.5, Mean Corpuscular Hemoglobin Concent 34.6, Red Cell Distribution Width 13.0, Platelet Count 202, Mean Platelet Volume 8.7, Neutrophils (%) (Auto) 64.1, Lymphocytes (%) (Auto) 23.6, Monocytes (%) (Auto) 8.6, Eosinophils (%) (Auto) 3.0, Basophils (%) (Auto ) 0.8, Sodium Level 148H, Potassium Level 3.2L, Chloride Level 114H, Carbon Dioxide Level 23, Anion Gap 11, Blood Urea Nitrogen 12, Creatinine 0.7, Estimat Glomerular Filtration Rate > 60, Glucose Level 115#H, Calcium Level 8.3L Current Medications Medications (Trade) Dose Ordered Sig/Roberto Route PRN Reason Start Time Stop Time Status Last Admin Dose Admin Acetaminophen (Tylenol) 650 mg Q4H PRN ORAL mild pain/fever 03/05/20 18:00 03/31/20 17:59 Al Hydroxide/Mg Hydroxide (Mylanta) 30 ml Q4H PRN ORAL Dyspepsia 03/05/20 18:00 03/31/20 17:59 Aripiprazole (Abilify) 5 mg DAILY ORAL 03/06/20 09:00 04/16/20 08:59 03/06/20 09:15 Ascorbic Acid (Vitamin C) 500 mg DAILY ORAL 03/06/20 09:00 04/01/20 08:59 03/06/20 09:13 Atorvastatin Calcium (Lipitor) 20 mg BEDTIME ORAL 03/05/20 21:00 05/30/20 20:59 03/05/20 21:02 Dextrose (Dextrose 50%) 25 ml Q30M PRN IV Hypoglycemia 03/05/20 18:00 05/30/20 18:29 Dextrose (Dextrose 50%) 50 ml Q30M PRN IV Hypoglycemia 03/05/20 18:00 05/30/20 18:29 Docusate Sodium (Colace) 100 mg BIDPRN PRN ORAL Constipation 03/06/20 18:00 04/03/20 17:59 Heparin Sodium (Porcine) (Heparin 5000 units/ml) 5,000 units EVERY 12 HOURS SUBQ 03/05/20 21:00 04/19/20 08:59 03/06/20 09:17 Insulin Aspart (NovoLOG) BEFORE MEALS AND HS SUBQ 03/05/20 21:00 05/30/20 20:59 03/05/20 21:04 Insulin Detemir (Levemir) 10 units BEDTIME SUBQ 03/05/20 21:00 06/02/20 20:59 03/05/20 21:04 Levofloxacin (Levaquin) 500 mg DAILY ORAL 03/06/20 09:00 03/10/20 11:59 03/06/20 09:14 Levothyroxine Sodium (Synthroid) 150 mcg 0630 ORAL 03/06/20 06:30 04/01/20 06:29 03/06/20 05:39 Metoprolol Tartrate (Lopressor) 50 mg Q12HR ORAL 03/06/20 09:00 06/04/20 08:59 03/06/20 09:14 Mirtazapine (Remeron) 7.5 mg BEDTIME ORAL 03/05/20 21:00 05/30/20 20:59 03/05/20 21:05 Multivitamins (Multivitamins) 1 tab DAILY ORAL 03/06/20 09:00 04/01/20 08:59 03/06/20 09:13 Pantoprazole (Protonix) 40 mg EVERY 12 HOURS IVP 03/05/20 21:00 04/01/20 08:59 03/06/20 09:12 Polyethylene Glycol (Miralax) 17 gm BEDTIME ORAL 03/05/20 21:00 04/03/20 20:59 Potassium Phosphate 15 mm/ Sodium Chloride 1,005 ml @ 75 mls/hr [id number] IV 03/06/20 11:00 04/05/20 10:59 Sitagliptin Phosphate (Januvia) 100 mg DAILY ORAL 03/06/20 09:00 04/01/20 08:59 03/06/20 09:13 Russell Goyal MD Mar 06, 2020 09:48
--- NOTE | 2020-03-06 09:50 | General Progress Note ---
Assessment/Plan Problem List: (1) Pyelonephritis ICD Codes: N12 - Tubulo-interstitial nephritis, not specified as acute or chronic SNOMED: 81712987, 50678850 (2) Renal failure ICD Codes: N19 - Unspecified kidney failure SNOMED: 02305159, 24958736 (3) Coffee ground emesis ICD Codes: K92.0 - Hematemesis SNOMED: 36162238, 07826660 (4) Hyperglycemic crisis due to diabetes mellitus ICD Codes: E11.65 - Type 2 diabetes mellitus with hyperglycemia SNOMED: 210174975, 95258335 (5) Altered mental status ICD Codes: R41.82 - Altered mental status, unspecified SNOMED: 974528654 (6) Afib ICD Codes: I48.91 - Unspecified atrial fibrillation SNOMED: 97278514 Status: stable, not improved Assessment/Plan: Continue IV hydration per renal.Monitor lytes. monitor volume status. Insulin sliding scale. Monitor Accu-Cheks. encourage po. asp precautions IV antibiotics for UTI and sepsis cultures reviewed. ID noted DVT and stress ulcer prophylaxis Turn every 2 hours transfer to med surg Subjective ROS Limited/Unobtainable: No Constitutional: Reports: malaise, weakness HEENT: Reports: no symptoms Cardiovascular: Reports: no symptoms Respiratory: Reports: no symptoms Gastrointestinal/Abdominal: Reports: no symptoms Genitourinary: Reports: no symptoms Neurologic/Psychiatric: Reports: pre-existing deficit Endocrine: Reports: no symptoms Hematologic/Lymphatic: Reports: no symptoms Allergies: Coded Allergies: No Known Allergies (Unverified , 03/01/20) All Systems: reviewed and negative except above Subjective no events. stable. eating better. on ivf. low k noted. no fevers. on iv abx for uti. all noted. Objective Last 24 Hour Vital Signs Date Time Temp Pulse Resp B/P (MAP) Pulse Ox O2 Delivery O2 Flow Rate FiO2 03/06/20 09:14 83 145/75 03/06/20 08:00 97.9 83 20 145/75 (98) 96 03/06/20 04:00 82 03/06/20 04:00 Room Air 03/06/20 04:00 97.9 85 20 160/88 (112) 95 03/06/20 00:01 97.4 76 16 134/64 (87) 93 03/06/20 00:00 Room Air 03/06/20 00:00 97.4 16 134/64 (87) 93 03/06/20 00:00 67 03/05/20 21:00 85 138/60 03/05/20 20:01 97.7 85 17 138/60 (86) 93 03/05/20 20:00 97.7 17 138/60 (86) 93 03/05/20 20:00 89 03/05/20 20:00 Room Air 03/05/20 16:00 97.6 19 148/81 (103) 96 03/05/20 16:00 80 03/05/20 16:00 Room Air 03/05/20 12:00 75 03/05/20 12:00 97.5 20 151/86 (107) 94 03/05/20 12:00 80 03/05/20 12:00 Room Air 03/05/20 10:28 109 150/77 Intake and Output 03/05/20 03/06/20 19:00 07:00 # Voids 3 # Bowel Movements 3 Laboratory Tests 03/05/20 10:45: White Blood Count 10.7, Red Blood Count 5.25, Hemoglobin 14.2, Hematocrit 42.3, Mean Corpuscular Volume 81, Mean Corpuscular Hemoglobin 27.0, Mean Corpuscular Hemoglobin Concent 33.5, Red Cell Distribution Width 13.3, Platelet Count 204, Mean Platelet Volume 8.2, Neutrophils (%) (Auto) 79.2H, Lymphocytes (%) (Auto) 12.9L, Monocytes (%) (Auto) 5.9, Eosinophils (%) (Auto) 1.3, Basophils (%) (Auto ) 0.8, Sodium Level 144, Potassium Level 4.0, Chloride Level 110H, Carbon Dioxide Level 21, Anion Gap 13, Blood Urea Nitrogen 17, Creatinine 0.8, Estimat Glomerular Filtration Rate > 60, Glucose Level 298#H, Calcium Level 8.9 03/06/20 08:00: White Blood Count 8.2, Red Blood Count 4.67, Hemoglobin 12.8, Hematocrit 37.0, Mean Corpuscular Volume 79L, Mean Corpuscular Hemoglobin 27.5, Mean Corpuscular Hemoglobin Concent 34.6, Red Cell Distribution Width 13.0, Platelet Count 202, Mean Platelet Volume 8.7, Neutrophils (%) (Auto) 64.1, Lymphocytes (%) (Auto) 23.6, Monocytes (%) (Auto) 8.6, Eosinophils (%) (Auto) 3.0, Basophils (%) (Auto ) 0.8, Sodium Level 148H, Potassium Level 3.2L, Chloride Level 114H, Carbon Dioxide Level 23, Anion Gap 11, Blood Urea Nitrogen 12, Creatinine 0.7, Estimat Glomerular Filtration Rate > 60, Glucose Level 115#H, Calcium Level 8.3L Height (Feet): 5 Height (Inches): 7.00 Weight (Pounds): 118 Objective General Appearance: WD/WN, alert, less confused. thin EENT: normal ENT inspection Neck: supple Cardiovascular: normal peripheral pulses, normal rate, regular rhythm Respiratory/Chest: lungs clear, normal breath sounds, no respiratory distress Abdomen: normal bowel sounds, non tender, soft, no organomegaly, no mass Extremities: normal range of motion, non-tender Edema: no edema noted Arm (L), no edema noted Arm (R), no edema noted Leg (L), no edema noted Leg (R), no edema noted Pedal (L), no edema noted Pedal (R), no edema noted Generalized Neurologic: mental health program manager II-XII grossly normal, alert, oriented x 3 Skin: normal pigmentation Lymphatic: normal anterior cervical (L), normal anterior cervical (R), normal posterior cervical (L), normal posterior cervical (R), normal submandibular (L) , normal submandibular (R), normal supraclavicular (L), normal supraclavicular ( R), normal axillary (L), normal axillary (R), normal inguinal (L), normal inguinal (R), normal other Larry Martinez MD Mar 06, 2020 09:50
--- NOTE | 2020-03-06 10:07 | Infectious Diseases Prog Note ---
Assessment/Plan Assessment/Plan antibiotics : levoquin A 1. klebsiella esbl UTI 2. Diabetes. 3. Hypertension. 4. COVID-19 test negative .. 5. COPD. 6. rectal VRE colonization P 1. continue levoquin po 1 more day 2. will follow up cultures Subjective ROS Limited/Unobtainable: Yes Allergies: Coded Allergies: No Known Allergies (Unverified , 03/01/20) Objective Vital Signs Last 24 Hour Vital Signs Date Time Temp Pulse Resp B/P (MAP) Pulse Ox O2 Delivery O2 Flow Rate FiO2 03/06/20 09:14 83 145/75 03/06/20 08:00 97.9 83 20 145/75 (98) 96 03/06/20 04:00 82 03/06/20 04:00 Room Air 03/06/20 04:00 97.9 85 20 160/88 (112) 95 03/06/20 00:01 97.4 76 16 134/64 (87) 93 03/06/20 00:00 Room Air 03/06/20 00:00 97.4 16 134/64 (87) 93 03/06/20 00:00 67 03/05/20 21:00 85 138/60 03/05/20 20:01 97.7 85 17 138/60 (86) 93 03/05/20 20:00 97.7 17 138/60 (86) 93 03/05/20 20:00 89 03/05/20 20:00 Room Air 03/05/20 16:00 97.6 19 148/81 (103) 96 03/05/20 16:00 80 03/05/20 16:00 Room Air 03/05/20 12:00 75 03/05/20 12:00 97.5 20 151/86 (107) 94 03/05/20 12:00 80 03/05/20 12:00 Room Air 03/05/20 10:28 109 150/77 Height (Feet): 5 Height (Inches): 7.00 Weight (Pounds): 118 Respiratory/Chest: lungs clear Cardiovascular: normal rate, regular rhythm, no gallop/murmur Abdomen: soft, non tender Extremities: no edema Laboratory Tests Test 03/05/20 10:45 03/06/20 08:00 White Blood Count 10.7 K/UL (4.8-10.8) 8.2 K/UL (4.8-10.8) Red Blood Count 5.25 M/UL (4.20-5.40) 4.67 M/UL (4.20-5.40) Hemoglobin 14.2 G/DL (12.0-16.0) 12.8 G/DL (12.0-16.0) Hematocrit 42.3 % (37.0-47.0) 37.0 % (37.0-47.0) Mean Corpuscular Volume 81 FL (80-99) 79 FL (80-99) L Mean Corpuscular Hemoglobin 27.0 PG (27.0-31.0) 27.5 PG (27.0-31.0) Mean Corpuscular Hemoglobin Concent 33.5 G/DL (32.0-36.0) 34.6 G/DL (32.0-36.0) Red Cell Distribution Width 13.3 % (11.6-14.8) 13.0 % (11.6-14.8) Platelet Count 204 K/UL (150-450) 202 K/UL (150-450) Mean Platelet Volume 8.2 FL (6.5-10.1) 8.7 FL (6.5-10.1) Neutrophils (%) (Auto) 79.2 % (45.0-75.0) H 64.1 % (45.0-75.0) Lymphocytes (%) (Auto) 12.9 % (20.0-45.0) L 23.6 % (20.0-45.0) Monocytes (%) (Auto) 5.9 % (1.0-10.0) 8.6 % (1.0-10.0) Eosinophils (%) (Auto) 1.3 % (0.0-3.0) 3.0 % (0.0-3.0) Basophils (%) (Auto) 0.8 % (0.0-2.0) 0.8 % (0.0-2.0) Sodium Level 144 MMOL/L (136-145) 148 MMOL/L (136-145) H Potassium Level 4.0 MMOL/L (3.5-5.1) 3.2 MMOL/L (3.5-5.1) L Chloride Level 110 MMOL/L (98-107) H 114 MMOL/L (98-107) H Carbon Dioxide Level 21 MMOL/L (21-32) 23 MMOL/L (21-32) Anion Gap 13 mmol/L (5-15) 11 mmol/L (5-15) Blood Urea Nitrogen 17 mg/dL (7-18) 12 mg/dL (7-18) Creatinine 0.8 MG/DL (0.55-1.30) 0.7 MG/DL (0.55-1.30) Estimat Glomerular Filtration Rate > 60 mL/min (>60) > 60 mL/min (>60) Glucose Level 298 MG/DL (74-106) #H 115 MG/DL (74-106) #H Calcium Level 8.9 MG/DL (8.5-10.1) 8.3 MG/DL (8.5-10.1) L Current Medications Medications (Trade) Dose Ordered Sig/Roberto Route PRN Reason Start Time Stop Time Status Last Admin Dose Admin Acetaminophen (Tylenol) 650 mg Q4H PRN ORAL mild pain/fever 03/05/20 18:00 03/31/20 17:59 Al Hydroxide/Mg Hydroxide (Mylanta) 30 ml Q4H PRN ORAL Dyspepsia 03/05/20 18:00 03/31/20 17:59 Aripiprazole (Abilify) 5 mg DAILY ORAL 03/06/20 09:00 04/16/20 08:59 03/06/20 09:15 Ascorbic Acid (Vitamin C) 500 mg DAILY ORAL 03/06/20 09:00 04/01/20 08:59 03/06/20 09:13 Atorvastatin Calcium (Lipitor) 20 mg BEDTIME ORAL 03/05/20 21:00 05/30/20 20:59 03/05/20 21:02 Dextrose (Dextrose 50%) 25 ml Q30M PRN IV Hypoglycemia 03/05/20 18:00 05/30/20 18:29 Dextrose (Dextrose 50%) 50 ml Q30M PRN IV Hypoglycemia 03/05/20 18:00 05/30/20 18:29 Docusate Sodium (Colace) 100 mg BIDPRN PRN ORAL Constipation 03/06/20 18:00 04/03/20 17:59 Heparin Sodium (Porcine) (Heparin 5000 units/ml) 5,000 units EVERY 12 HOURS SUBQ 03/05/20 21:00 04/19/20 08:59 03/06/20 09:17 Insulin Aspart (NovoLOG) BEFORE MEALS AND HS SUBQ 03/05/20 21:00 05/30/20 20:59 03/05/20 21:04 Insulin Detemir (Levemir) 10 units BEDTIME SUBQ 03/05/20 21:00 06/02/20 20:59 03/05/20 21:04 Levofloxacin (Levaquin) 500 mg DAILY ORAL 03/06/20 09:00 03/10/20 11:59 03/06/20 09:14 Levothyroxine Sodium (Synthroid) 150 mcg 0630 ORAL 03/06/20 06:30 04/01/20 06:29 03/06/20 05:39 Metoprolol Tartrate (Lopressor) 50 mg Q12HR ORAL 03/06/20 09:00 06/04/20 08:59 03/06/20 09:14 Mirtazapine (Remeron) 7.5 mg BEDTIME ORAL 03/05/20 21:00 05/30/20 20:59 03/05/20 21:05 Multivitamins (Multivitamins) 1 tab DAILY ORAL 03/06/20 09:00 04/01/20 08:59 03/06/20 09:13 Pantoprazole (Protonix) 40 mg EVERY 12 HOURS IVP 03/05/20 21:00 04/01/20 08:59 03/06/20 09:12 Polyethylene Glycol (Miralax) 17 gm BEDTIME ORAL 03/05/20 21:00 04/03/20 20:59 Potassium Phosphate 15 mm/ Sodium Chloride 1,005 ml @ 75 mls/hr [id number] IV 03/06/20 11:00 04/05/20 10:59 Sitagliptin Phosphate (Januvia) 100 mg DAILY ORAL 03/06/20 09:00 04/01/20 08:59 03/06/20 09:13 Clau Tinsley MD Mar 06, 2020 10:07
[2020-03-06] MEDS ORDERED: Varibar Pudding 230ml MC PRN (11:00)
[2020-03-06] MEDS ORDERED: Varibar Nectar 240ml MC PRN (11:00)
[2020-03-06] MEDS ORDERED: Varibar Honey 250ml MC PRN (11:00)
--- NOTE | 2020-03-06 11:09 | NUR ---
ST notes: Swallow Status: Relevant Meds: Remeron (psych-related), Protonix (GERD), Albuterol (COPD) Subjective: The patient is alert but confused. She is talking to herself when alone. When asked who she is talking to, she said "she is right there". Concern for psychiatric issues and may need a psychiatric consultation. Patient is also on Remeron. She is able to express basic needs. Objective/Assessment Determine readiness for Modified barium swallow study (MBSS): The patient is ready for MBSS and Dr. Hoover gave the telephone order today. Will complete in the afternoon to further assess swallow, determine silent aspiration risk, and attempt trial tx techniques. Lungs clear on only CXR. PO trials to re-assess appropriate diet level: The patient is on a pureed and nectar thick liquid. Thin liquid water cannister removed from her table. and informed WHOLESALE LOAN PROCESSOR/RN that only nectar thick water allowed for now. Since patient transferred from another room, reposted her aspiration precautions sign. Given tsp pureed egg, the patient chewed it unnecessarily for 4-5 seconds and swallowed with fair hyolaryngeal excursion. No oral spillage/residue but did have a throat clear on 1/5 trials. Appears to have oral awareness/sensory deficits (oral apraxia). Given tsp cream of wheat, nectar thick consistency, patient swallowed within 2 seconds with fair hyolaryngeal excursion, no oral spillage/residue nor overt aspiration 5/5 trials Give nectar thick liquids via straw sequential sips, the patient swallowed with fair hyolaryngeal excursion, no oral spillage/residue nor overt aspiration. Resp rate was stable at 20 bpm (baseline 16-20). SP02 usually 93-96 % on room air but has COPD so may to go to 88%. On albuterol. Will continue with current diet/liquids since intake is still slow. She also talks while eating at times. Will consume 75% or more of meal: Goals met for intake w/o overt aspiration reported per staff. Will educated new staff in posted asp/reflux (HAS GERD AND ON PROTONIX) precautions - Goals met for RN, Ni, educated today (see report for specific precautions). Per RN, the patient coughed when given crushed medications and nectar thick water/cream of wheat combination (? flavor versus granules and mixed consistency related) Asked RN to use pudding (dislikes applesauce) to see if she does better. PLAN: Complete modified barium swallow study today at noon Continue with current diet/liquids with posted precautions and one to one feeding. Continue with oral care with staff ST to continue with plan of care in ST swallow evaluation report
[2020-03-06] MEDS: POTASSIUM PHOSPHATE IV SCH (12:07)
[2020-03-06] MEDS: 1/2 NS IV SCH (12:07)
--- NOTE | 2020-03-06 13:20 | NUR ---
NURSE NOTES: Patient transported down for video swallow.
--- NOTE | 2020-03-06 14:06 | NUR ---
CASE MANAGEMENT:REVIEW 03/06/20 SI: PYELONEPHRITIS. RENAL FAILURE COVID 19 NOT DETECTED 97.6 77 20 104/74 100% ON RA NA+148 K-3.2 GLUCOSE+115 IS: PROTONIX PO Q12 IVF+KCL@ 75/HR VIT C PO QD LEVAQUIN PO QD MVI PO QD JANUVIA PO QD LOPRESSOR PO Q12 SYNTHROID PO QAM HEPARIN SQ Q12 LEVEMIR SQ QHS REMERON PO QHS : NOW ON TELEMETRY FROM SDU DCP: FROM [facility] REHAB PLAN: [facility] PENDING
--- NOTE | 2020-03-06 14:40 | NUR ---
NURSE NOTES: Patient back in unit from procedure.
--- NOTE | 2020-03-06 16:14 | NUR ---
Modified Barium Swallow Study Initial Impressions: Pt presents w/ mild to moderate Oropharyngeal dysphagia with significant increased transit times in all phases of the swallow due to sensorimotor deficits and compounded by cognitive-behavioral deficits (such as talking while swallowing, turning head). No significant radiographic evidence of aspiration or penetration w/ any PO trials, but has high aspiration risk. Recommended Diet at this time is Puree with [place] thick liquids w/ 1:1 feeding and implementation of posted aspiration precautions. FACING END TRIMMER plans to continue to f/u for dysphagia management and tx, further Pt and caregiver education and training, and for PO trials. Formal report to follow.
[2020-03-06] MEDS ORDERED: Docusate 100mg cap ORAL PRN (18:00)
--- NOTE | 2020-03-06 19:10 | NUR ---
NURSE NOTES: Report received from MAGALI Dan. Patient awake, alert, and responsive. AOx1-2. IV intact and flushed; no erythema, bleeding, or infiltration. Patient on semi-mccord's position with bilateral soft restraints. Skin assessment done, area protected appropriately. Patient assessed by ST, still on pureed diet with nectar thick liquids. Bed in lowest position, brakes engaged. Fall precautions in place. Bed rails raised x3. Call light placed within reach. Will continue to monitor.
--- NOTE | 2020-03-06 19:31 | NUR ---
HAND-OFF: Report given to diana.
--- NOTE | 2020-03-06 20:27 | NUR ---
NURSE NOTES: Patient removed her IV and was kicking and attempting to bite nurse. Called and left a message with Dr. Goyal regarding anti-anxiety medication for patient. Awaiting callback.
[2020-03-06] MEDS: Miralax 17gm pkt ORAL SCH (21:00)
[2020-03-06] MEDS: Atorvastatin 20mg tab ORAL SCH (21:52)
[2020-03-06] MEDS: Levemir Flexpen SUBQ SCH (21:56)
[2020-03-07] VITALS: BP 163/80
[2020-03-07] MEDS: POTASSIUM PHOSPHATE IV SCH ×2 (00:24→05:22)
[2020-03-07] MEDS: 1/2 NS IV SCH ×2 (00:24→05:22)
[2020-03-07] MEDS: LORazepam 1mg tab ORAL PRN ×2 (00:42→17:35)
[2020-03-07 04:00] VITALS: BP 118/71
--- NOTE | 2020-03-07 06:06 | NUR ---
NURSE NOTES: BS was 43. D50% 50ml given. Will recheck bs in 15 minutes.
--- NOTE | 2020-03-07 06:27 | NUR ---
NURSE NOTES: Left a message with Dr. Gyoal regarding patient's blood sugar. Upon rechecking after 15 minutes, bs was 178.
[2020-03-07] MEDS: NovoLOG Insulin Flexpen SUBQ SCH ×4 (06:30→21:00)
--- NOTE | 2020-03-07 07:00 | NUR ---
NURSE NOTES: Received report from MAGALI Gunderson. Observed pt sleeping, no s/sx of acute distress. Pt on bilateral soft wrist restraints, pulses are present, no edema noted. IVF running at goal. Bed on lowest position, call light within reach. Will continue plan of care.
[2020-03-07 07:25] LABS: BASOPHILS % (AUTO) 0.7 % (0.0-2.0); EOSINOPHILS % (AUTO) 3.1 % (0.0-3.0); HEMOGLOBIN 11.6 G/DL (12.0-16.0); LYMPHOCYTES % (AUTO) 22.7 % (20.0-45.0); MEAN CORPUSCULAR VOLUME 81 FL (80-99); NEUTROPHILS % (AUTO) 62.5 % (45.0-75.0); PLATELET COUNT 208 K/UL (150-450); RED BLOOD COUNT 4.33 M/UL (4.20-5.40); RED CELL DISTRIBUTION WIDTH 13.2 % (11.6-14.8); WHITE BLOOD COUNT 10.1 K/UL (4.8-10.8)
--- NOTE | 2020-03-07 07:29 | NUR ---
HAND-OFF: Report given to MAGALI Gonzales. Plan of care endorsed.
[2020-03-07 07:41] LABS: ANION GAP 10 mmol/L (5-15); BLOOD UREA NITROGEN 13 mg/dL (7-18); CALCIUM 8.6 MG/DL (8.5-10.1); CARBON DIOXIDE 22 MMOL/L (21-32); CHLORIDE 114 MMOL/L (98-107); CREATININE 0.7 MG/DL (0.55-1.30); POTASSIUM 3.1 MMOL/L (3.5-5.1); SODIUM 146 MMOL/L (136-145)
--- NOTE | 2020-03-07 07:58 | NUR ---
NURSE NOTES: Received a call from lab, reporting glucose of 39. Informed Dr Jyotsna MD ordered to GRACE Kerr.
[2020-03-07 08:00] VITALS: BP 115/71
--- NOTE | 2020-03-07 08:46 | Pulmonology Progress Note ---
Assessment/Plan Assessment/Plan 1. Diabetes out of control. 2. Hyperosmotic nonketotic state. 3. Lactic acidemia. 4. Metabolic acidosis. 5. Leukocytosis. 6. Possible sepsis. 7. Hemoconcentration. 8. COPD per history. No significant respiratory distress at this time. 9. History of CAD. Chest x-ray is negative. PLAN monitor lytes/ improved monitor blood sugars/ dc januvia with hypoglycemia antibiotic per ID- dc today close followup respiratory status stable monitor oxygen needs follow up for change and recommend dc planning impression, plan, and exam edited and reviewed in detail care discussed with RN Subjective ROS Limited/Unobtainable: Yes Constitutional: Denies: fever, chills Gastrointestinal/Abdominal: Denies: nausea, vomiting, diarrhea Musculoskeletal: Denies: pain Allergies: Coded Allergies: No Known Allergies (Unverified , 03/01/20) All Systems: reviewed and negative except above Subjective care noted remains confused d/w nursing no distress Objective Last 24 Hour Vital Signs Date Time Temp Pulse Resp B/P (MAP) Pulse Ox O2 Delivery O2 Flow Rate FiO2 03/07/20 06:00 Room Air 03/07/20 04:00 78 03/07/20 04:00 98.0 76 21 118/71 (87) 95 03/07/20 00:00 71 03/07/20 00:00 97.7 74 19 163/80 (107) 96 03/06/20 22:00 Room Air 03/06/20 21:53 75 155/70 03/06/20 20:00 98.1 75 18 155/70 (98) 95 03/06/20 20:00 77 03/06/20 16:00 97.2 79 20 140/72 (94) 100 03/06/20 16:00 71 03/06/20 14:00 Room Air 03/06/20 12:00 73 03/06/20 12:00 97.6 77 20 104/74 (84) 100 03/06/20 09:14 83 145/75 Intake and Output 03/06/20 03/07/20 19:00 07:00 Intake Total 450 ml Balance 450 ml IV Total 450 ml # Voids 3 2 # Bowel Movements 1 1 Objective WDWN NAD reduced breath sounds bilaterally without rhonchi or wheeze [id number] without MRG NABS nontender no HSM no CC mild edema nonfocal confused reviewed and edited HEENT: mucous membranes moist, other - poor dentition Abdomen: soft, non tender Extremities: no edema Neurologic/Psychiatric: alert, responsive Laboratory Tests 03/07/20 05:40: White Blood Count 10.1, Red Blood Count 4.33, Hemoglobin 11.6L, Hematocrit 35.0L , Mean Corpuscular Volume 81, Mean Corpuscular Hemoglobin 26.8L, Mean Corpuscular Hemoglobin Concent 33.2, Red Cell Distribution Width 13.2, Platelet Count 208, Mean Platelet Volume 8.4, Neutrophils (%) (Auto) 62.5, Lymphocytes (% ) (Auto) 22.7, Monocytes (%) (Auto) 11.0H, Eosinophils (%) (Auto) 3.1H, Basophils (%) (Auto) 0.7, Sodium Level 146H, Potassium Level 3.1L, Chloride Level 114H, Carbon Dioxide Level 22, Anion Gap 10, Blood Urea Nitrogen 13, Creatinine 0.7, Estimat Glomerular Filtration Rate > 60, Glucose Level 39*L, Calcium Level 8.6, Phosphorus Level 3.2 Current Medications Medications (Trade) Dose Ordered Sig/Roberto Route PRN Reason Start Time Stop Time Status Last Admin Dose Admin Acetaminophen (Tylenol) 650 mg Q4H PRN ORAL mild pain/fever 03/05/20 18:00 03/31/20 17:59 Al Hydroxide/Mg Hydroxide (Mylanta) 30 ml Q4H PRN ORAL Dyspepsia 03/05/20 18:00 03/31/20 17:59 Aripiprazole (Abilify) 5 mg DAILY ORAL 03/06/20 09:00 04/16/20 08:59 03/06/20 09:15 Ascorbic Acid (Vitamin C) 500 mg DAILY ORAL 03/06/20 09:00 04/01/20 08:59 03/06/20 09:13 Atorvastatin Calcium (Lipitor) 20 mg BEDTIME ORAL 03/05/20 21:00 05/30/20 20:59 03/06/20 21:52 Barium Sulfate (Varibar Honey) 250 ml NOW PRN MC RAD 03/06/20 11:00 03/09/20 10:51 Barium Sulfate (Varibar [place]) 240 ml NOW PRN MC RAD 03/06/20 11:00 03/09/20 10:51 Barium Sulfate (Varibar Pudding) 230 ml NOW PRN MC RAD 03/06/20 11:00 03/09/20 10:51 Dextrose (Dextrose 50%) 25 ml Q30M PRN IV Hypoglycemia 03/05/20 18:00 05/30/20 18:29 Dextrose (Dextrose 50%) 50 ml Q30M PRN IV Hypoglycemia 03/05/20 18:00 05/30/20 18:29 03/07/20 06:06 Docusate Sodium (Colace) 100 mg BIDPRN PRN ORAL Constipation 03/06/20 18:00 04/03/20 17:59 Heparin Sodium (Porcine) (Heparin 5000 units/ml) 5,000 units EVERY 12 HOURS SUBQ 03/05/20 21:00 04/19/20 08:59 03/06/20 21:54 Insulin Aspart (NovoLOG) BEFORE MEALS AND HS SUBQ 03/05/20 21:00 05/30/20 20:59 03/06/20 16:34 Insulin Detemir (Levemir) 10 units BEDTIME SUBQ 03/05/20 21:00 06/02/20 20:59 03/06/20 21:56 Levofloxacin (Levaquin) 500 mg DAILY ORAL 03/06/20 09:00 03/07/20 23:59 03/06/20 09:14 Levothyroxine Sodium (Synthroid) 150 mcg 0630 ORAL 03/06/20 06:30 04/01/20 06:29 03/06/20 05:39 Lorazepam (Ativan) 1 mg Q4HR PRN ORAL For Anxiety 03/06/20 20:45 03/13/20 20:44 03/07/20 00:42 Metoprolol Tartrate (Lopressor) 50 mg Q12HR ORAL 03/06/20 09:00 06/04/20 08:59 03/06/20 21:53 Mirtazapine (Remeron) 7.5 mg BEDTIME ORAL 03/05/20 21:00 05/30/20 20:59 03/06/20 21:52 Multivitamins (Multivitamins) 1 tab DAILY ORAL 03/06/20 09:00 04/01/20 08:59 03/06/20 09:13 Pantoprazole (Protonix) 40 mg Q12HR ORAL 03/06/20 21:00 04/05/20 20:59 03/06/20 21:52 Polyethylene Glycol (Miralax) 17 gm BEDTIME ORAL 03/05/20 21:00 04/03/20 20:59 Potassium Phosphate 15 mm/ Sodium Chloride 1,005 ml @ 75 mls/hr [id number] IV 03/06/20 11:00 04/05/20 10:59 03/07/20 05:22 Russell Goyal MD Mar 07, 2020 08:46
--- NOTE | 2020-03-07 08:49 | General Progress Note ---
Assessment/Plan Problem List: (1) Pyelonephritis ICD Codes: N12 - Tubulo-interstitial nephritis, not specified as acute or chronic SNOMED: 33232287, 92604958 (2) Renal failure ICD Codes: N19 - Unspecified kidney failure SNOMED: 02413134, 02045521 (3) Coffee ground emesis ICD Codes: K92.0 - Hematemesis SNOMED: 49150777, 48295919 (4) Hyperglycemic crisis due to diabetes mellitus ICD Codes: E11.65 - Type 2 diabetes mellitus with hyperglycemia SNOMED: 992471630, 63465335 (5) Altered mental status ICD Codes: R41.82 - Altered mental status, unspecified SNOMED: 476817754 (6) Afib ICD Codes: I48.91 - Unspecified atrial fibrillation SNOMED: 62234795 Status: stable, not improved Assessment/Plan: Continue IV hydration- adjusted. Monitor lytes. monitor volume status. Insulin sliding scale. Monitor Accu-Cheks. encourage po. asp precautions IV antibiotics for UTI and sepsis cultures reviewed. ID noted DVT and stress ulcer prophylaxis Turn every 2 hours repeat labs tomorrow Subjective ROS Limited/Unobtainable: No Constitutional: Reports: malaise, weakness HEENT: Reports: no symptoms Cardiovascular: Reports: no symptoms Respiratory: Reports: no symptoms Gastrointestinal/Abdominal: Reports: difficulty swallowing Genitourinary: Reports: no symptoms Neurologic/Psychiatric: Reports: pre-existing deficit Endocrine: Reports: no symptoms Hematologic/Lymphatic: Reports: anemia Allergies: Coded Allergies: No Known Allergies (Unverified , 03/01/20) All Systems: reviewed and negative except above Subjective no events. stable. eating better. on ivf. low blood sugar. no fevers. on iv abx for uti. Objective Last 24 Hour Vital Signs Date Time Temp Pulse Resp B/P (MAP) Pulse Ox O2 Delivery O2 Flow Rate FiO2 03/07/20 06:00 Room Air 03/07/20 04:00 78 03/07/20 04:00 98.0 76 21 118/71 (87) 95 03/07/20 00:00 71 03/07/20 00:00 97.7 74 19 163/80 (107) 96 03/06/20 22:00 Room Air 03/06/20 21:53 75 155/70 03/06/20 20:00 98.1 75 18 155/70 (98) 95 03/06/20 20:00 77 03/06/20 16:00 97.2 79 20 140/72 (94) 100 03/06/20 16:00 71 03/06/20 14:00 Room Air 03/06/20 12:00 73 03/06/20 12:00 97.6 77 20 104/74 (84) 100 03/06/20 09:14 83 145/75 Intake and Output 03/06/20 03/07/20 19:00 07:00 Intake Total 450 ml Balance 450 ml IV Total 450 ml # Voids 3 2 # Bowel Movements 1 1 Laboratory Tests 03/07/20 05:40: White Blood Count 10.1, Red Blood Count 4.33, Hemoglobin 11.6L, Hematocrit 35.0L , Mean Corpuscular Volume 81, Mean Corpuscular Hemoglobin 26.8L, Mean Corpuscular Hemoglobin Concent 33.2, Red Cell Distribution Width 13.2, Platelet Count 208, Mean Platelet Volume 8.4, Neutrophils (%) (Auto) 62.5, Lymphocytes (% ) (Auto) 22.7, Monocytes (%) (Auto) 11.0H, Eosinophils (%) (Auto) 3.1H, Basophils (%) (Auto) 0.7, Sodium Level 146H, Potassium Level 3.1L, Chloride Level 114H, Carbon Dioxide Level 22, Anion Gap 10, Blood Urea Nitrogen 13, Creatinine 0.7, Estimat Glomerular Filtration Rate > 60, Glucose Level 39*L, Calcium Level 8.6, Phosphorus Level 3.2 Height (Feet): 5 Height (Inches): 7.00 Weight (Pounds): 118 Objective General Appearance: WD/WN, alert, less confused. 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
[2020-03-07] MEDS: Metoprolol Tartrate 50mg tab ORAL SCH ×2 (09:31→22:35)
[2020-03-07] MEDS: Levofloxacin 500mg tab ORAL SCH (09:31)
[2020-03-07] MEDS: Ascorbic Acid 500mg tab ORAL SCH (09:31)
[2020-03-07] MEDS: Heparin 5000 units/ml inj SUBQ SCH ×2 (09:33→22:52)
[2020-03-07] MEDS: Potassium Chloride 10 MEQ in D5 1/2NS 1,000 ML IV SCH ×2 (10:51→23:01)
--- NOTE | 2020-03-07 10:52 | NUR ---
DISCHARGE PLANNING PATIENT REFERRED BACK TO [facility] SPOKE WITH CHRISTEL @ [facility] WHO STATED PER HEALTH DEPARTMENT GUIDELINES PATIENT'S NEED TWO COVID 19 NEGATIVE TEST BEFORE THEY CAN ACCEPT PATIENT BACK DR MEHTA NOTIFIED SECOND COVID 19 TEST ORDERED Addendum: 03/07/20 at 1140 by LENORA PARKER CM *-*DISCHARGE PLANNING*-* ALIZA FOR SECOND COVID TEST
--- NOTE | 2020-03-07 10:56 | General Progress Note ---
Assessment/Plan Status: stable, not improved Assessment/Plan: 1. History of diabetes. 2. Hypertension. 3. Coronary artery disease and myocardial infarction. 4. COPD. 5. GERD. 6. CVA. 7. Dementia. 8. Psychiatric disorder including schizophrenia 9. Coffee ground emesis stable H&H ppi fu labs push po's neg stool ob bowel regimen GI procedures on hold given stable H&H and neg stool ob replace K Subjective ROS Limited/Unobtainable: No Allergies: Coded Allergies: No Known Allergies (Unverified , 03/01/20) Objective Last 24 Hour Vital Signs Date Time Temp Pulse Resp B/P (MAP) Pulse Ox O2 Delivery O2 Flow Rate FiO2 03/07/20 09:31 72 115/71 03/07/20 06:00 Room Air 03/07/20 04:00 78 03/07/20 04:00 98.0 76 21 118/71 (87) 95 03/07/20 00:00 71 03/07/20 00:00 97.7 74 19 163/80 (107) 96 03/06/20 22:00 Room Air 03/06/20 21:53 75 155/70 03/06/20 20:00 98.1 75 18 155/70 (98) 95 03/06/20 20:00 77 03/06/20 16:00 97.2 79 20 140/72 (94) 100 03/06/20 16:00 71 03/06/20 14:00 Room Air 03/06/20 12:00 73 03/06/20 12:00 97.6 77 20 104/74 (84) 100 Intake and Output 03/06/20 03/07/20 19:00 07:00 Intake Total 450 ml Balance 450 ml IV Total 450 ml # Voids 3 2 # Bowel Movements 1 1 Laboratory Tests 03/07/20 05:40: White Blood Count 10.1, Red Blood Count 4.33, Hemoglobin 11.6L, Hematocrit 35.0L , Mean Corpuscular Volume 81, Mean Corpuscular Hemoglobin 26.8L, Mean Corpuscular Hemoglobin Concent 33.2, Red Cell Distribution Width 13.2, Platelet Count 208, Mean Platelet Volume 8.4, Neutrophils (%) (Auto) 62.5, Lymphocytes (% ) (Auto) 22.7, Monocytes (%) (Auto) 11.0H, Eosinophils (%) (Auto) 3.1H, Basophils (%) (Auto) 0.7, Sodium Level 146H, Potassium Level 3.1L, Chloride Level 114H, Carbon Dioxide Level 22, Anion Gap 10, Blood Urea Nitrogen 13, Creatinine 0.7, Estimat Glomerular Filtration Rate > 60, Glucose Level 39*L, Calcium Level 8.6, Phosphorus Level 3.2 Height (Feet): 5 Height (Inches): 7.00 Weight (Pounds): 118 General Appearance: no apparent distress EENT: normal ENT inspection Neck: supple Cardiovascular: normal rate Respiratory/Chest: decreased breath sounds Abdomen: soft Extremities: non-tender Pollo Hoover MD Mar 07, 2020 10:56
[2020-03-07 12:00] VITALS: BP 135/69
--- NOTE | 2020-03-07 12:32 | Infectious Diseases Prog Note ---
Assessment/Plan Assessment/Plan A; 1. Klebsiella urinary tract infection. 2. Diabetes with hyperglycemia 3. Hypertension. 4. Negative COVID19 test 5. COPD. 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 discontinue Levaquin Subjective ROS Limited/Unobtainable: Yes Allergies: Coded Allergies: No Known Allergies (Unverified , 03/01/20) Objective Vital Signs Last 24 Hour Vital Signs Date Time Temp Pulse Resp B/P (MAP) Pulse Ox O2 Delivery O2 Flow Rate FiO2 03/07/20 09:31 72 115/71 03/07/20 06:00 Room Air 03/07/20 04:00 78 03/07/20 04:00 98.0 76 21 118/71 (87) 95 03/07/20 00:00 71 03/07/20 00:00 97.7 74 19 163/80 (107) 96 03/06/20 22:00 Room Air 03/06/20 21:53 75 155/70 03/06/20 20:00 98.1 75 18 155/70 (98) 95 03/06/20 20:00 77 03/06/20 16:00 97.2 79 20 140/72 (94) 100 03/06/20 16:00 71 03/06/20 14:00 Room Air Height (Feet): 5 Height (Inches): 7.00 Weight (Pounds): 118 HEENT: mucous membranes moist Respiratory/Chest: lungs clear Cardiovascular: normal rate Abdomen: soft, non tender Extremities: no edema Neurologic/Psychiatric: disoriented, other - sleeping Laboratory Tests Test 03/07/20 05:40 White Blood Count 10.1 K/UL (4.8-10.8) Red Blood Count 4.33 M/UL (4.20-5.40) Hemoglobin 11.6 G/DL (12.0-16.0) L Hematocrit 35.0 % (37.0-47.0) L Mean Corpuscular Volume 81 FL (80-99) Mean Corpuscular Hemoglobin 26.8 PG (27.0-31.0) L Mean Corpuscular Hemoglobin Concent 33.2 G/DL (32.0-36.0) Red Cell Distribution Width 13.2 % (11.6-14.8) Platelet Count 208 K/UL (150-450) Mean Platelet Volume 8.4 FL (6.5-10.1) Neutrophils (%) (Auto) 62.5 % (45.0-75.0) Lymphocytes (%) (Auto) 22.7 % (20.0-45.0) Monocytes (%) (Auto) 11.0 % (1.0-10.0) H Eosinophils (%) (Auto) 3.1 % (0.0-3.0) H Basophils (%) (Auto) 0.7 % (0.0-2.0) Sodium Level 146 MMOL/L (136-145) H Potassium Level 3.1 MMOL/L (3.5-5.1) L Chloride Level 114 MMOL/L (98-107) H Carbon Dioxide Level 22 MMOL/L (21-32) Anion Gap 10 mmol/L (5-15) Blood Urea Nitrogen 13 mg/dL (7-18) Creatinine 0.7 MG/DL (0.55-1.30) Estimat Glomerular Filtration Rate > 60 mL/min (>60) Glucose Level 39 MG/DL (74-106) *L Calcium Level 8.6 MG/DL (8.5-10.1) Phosphorus Level 3.2 MG/DL (2.5-4.9) Current Medications Medications (Trade) Dose Ordered Sig/Roberto Route PRN Reason Start Time Stop Time Status Last Admin Dose Admin Acetaminophen (Tylenol) 650 mg Q4H PRN ORAL mild pain/fever 03/05/20 18:00 03/31/20 17:59 Al Hydroxide/Mg Hydroxide (Mylanta) 30 ml Q4H PRN ORAL Dyspepsia 03/05/20 18:00 03/31/20 17:59 Aripiprazole (Abilify) 5 mg DAILY ORAL 03/06/20 09:00 04/16/20 08:59 03/07/20 09:31 Ascorbic Acid (Vitamin C) 500 mg DAILY ORAL 03/06/20 09:00 04/01/20 08:59 03/07/20 09:31 Atorvastatin Calcium (Lipitor) 20 mg BEDTIME ORAL 03/05/20 21:00 05/30/20 20:59 03/06/20 21:52 Barium Sulfate (Varibar Honey) 250 ml NOW PRN MC RAD 03/06/20 11:00 03/09/20 10:51 Barium Sulfate (Varibar [place]) 240 ml NOW PRN MC RAD 03/06/20 11:00 03/09/20 10:51 Barium Sulfate (Varibar Pudding) 230 ml NOW PRN RAD 03/06/20 11:00 03/09/20 10:51 Dextrose (Dextrose 50%) 25 ml Q30M PRN IV Hypoglycemia 03/05/20 18:00 05/30/20 18:29 Dextrose (Dextrose 50%) 50 ml Q30M PRN IV Hypoglycemia 03/05/20 18:00 05/30/20 18:29 03/07/20 06:06 Docusate Sodium (Colace) 100 mg BIDPRN PRN ORAL Constipation 03/06/20 18:00 04/03/20 17:59 Heparin Sodium (Porcine) (Heparin 5000 units/ml) 5,000 units EVERY 12 HOURS SUBQ 03/05/20 21:00 04/19/20 08:59 03/07/20 09:33 Insulin Aspart (NovoLOG) BEFORE MEALS AND HS SUBQ 03/05/20 21:00 05/30/20 20:59 03/06/20 16:34 Insulin Detemir (Levemir) 10 units BEDTIME SUBQ 03/05/20 21:00 06/02/20 20:59 03/06/20 21:56 Levofloxacin (Levaquin) 500 mg DAILY ORAL 03/06/20 09:00 03/07/20 23:59 03/07/20 09:31 Levothyroxine Sodium (Synthroid) 150 mcg 0630 ORAL 03/06/20 06:30 04/01/20 06:29 03/06/20 05:39 Lorazepam (Ativan) 1 mg Q4HR PRN ORAL For Anxiety 03/06/20 20:45 03/13/20 20:44 03/07/20 00:42 Metoprolol Tartrate (Lopressor) 50 mg Q12HR ORAL 03/06/20 09:00 06/04/20 08:59 03/07/20 09:31 Mirtazapine (Remeron) 7.5 mg BEDTIME ORAL 03/05/20 21:00 05/30/20 20:59 03/06/20 21:52 Multivitamins (Multivitamins) 1 tab DAILY ORAL 03/06/20 09:00 04/01/20 08:59 03/07/20 09:31 Pantoprazole (Protonix) 40 mg Q12HR ORAL 03/06/20 21:00 04/05/20 20:59 03/07/20 09:31 Polyethylene Glycol (Miralax) 17 gm BEDTIME ORAL 03/05/20 21:00 04/03/20 20:59 Potassium Chloride 10 meq/ Dextrose/Sodium Chloride 1,005 ml @ 75 mls/hr [id number] IV 03/07/20 10:00 04/06/20 09:59 03/07/20 10:51 Kenny Alejandro MD Mar 07, 2020 12:32
[2020-03-07 16:00] VITALS: BP 130/79
--- NOTE | 2020-03-07 16:38 | NUR ---
NURSE NOTES: Pt was able to remove her B soft wrist restraints and removed her IV. Will try to insert new IV line. Pt is very aggressive and combative.
--- NOTE | 2020-03-07 19:40 | NUR ---
HAND-OFF: Report given to Maryann. Pt in stable condition, endorsed plan of care.
--- NOTE | 2020-03-07 19:51 | Nephrology Progress Note ---
Assessment/Plan Problem List: (1) Hypernatremia (2) Dehydration (3) Pyelonephritis (4) Hyperglycemic crisis due to diabetes mellitus (5) Altered mental status Plan iv adjusted continue hydration and antibiotics Subjective Constitutional: Reports: weakness HEENT: Reports: no symptoms Genitourinary: Reports: incontinence Neurologic/Psychiatric: Reports: pre-existing deficit Objective Objective Last 24 Hour Vital Signs Date Time Temp Pulse Resp B/P (MAP) Pulse Ox O2 Delivery O2 Flow Rate FiO2 03/07/20 16:34 71 03/07/20 16:00 98.1 73 19 130/79 (96) 98 03/07/20 14:00 Room Air 03/07/20 12:00 98.6 62 18 135/69 (91) 96 03/07/20 09:31 72 115/71 03/07/20 08:00 97.5 72 18 115/71 (86) 96 03/07/20 07:58 53 03/07/20 06:00 Room Air 03/07/20 04:00 78 03/07/20 04:00 98.0 76 21 118/71 (87) 95 03/07/20 00:00 71 03/07/20 00:00 97.7 74 19 163/80 (107) 96 03/06/20 22:00 Room Air 03/06/20 21:53 75 155/70 03/06/20 20:00 98.1 75 18 155/70 (98) 95 03/06/20 20:00 77 Intake and Output 03/06/20 03/07/20 19:00 07:00 Intake Total 450 ml Balance 450 ml IV Total 450 ml # Voids 3 2 # Bowel Movements 1 1 Laboratory Tests 03/07/20 05:40: White Blood Count 10.1, Red Blood Count 4.33, Hemoglobin 11.6L, Hematocrit 35.0L , Mean Corpuscular Volume 81, Mean Corpuscular Hemoglobin 26.8L, Mean Corpuscular Hemoglobin Concent 33.2, Red Cell Distribution Width 13.2, Platelet Count 208, Mean Platelet Volume 8.4, Neutrophils (%) (Auto) 62.5, Lymphocytes (% ) (Auto) 22.7, Monocytes (%) (Auto) 11.0H, Eosinophils (%) (Auto) 3.1H, Basophils (%) (Auto) 0.7, Sodium Level 146H, Potassium Level 3.1L, Chloride Level 114H, Carbon Dioxide Level 22, Anion Gap 10, Blood Urea Nitrogen 13, Creatinine 0.7, Estimat Glomerular Filtration Rate > 60, Glucose Level 39*L, Calcium Level 8.6, Phosphorus Level 3.2 General Appearance: no apparent distress, alert, confused EENT: normal ENT inspection Neck: normal alignment Cardiovascular: normal rate, regular rhythm Respiratory/Chest: lungs clear Abdomen: no organomegaly Extremities: no edema 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
[2020-03-07 20:00] VITALS: BP 136/71
--- NOTE | 2020-03-07 20:00 | NUR ---
NURSE NOTES: RECEIVED PATIENT LYING IN BED, AWAKE, ORIENTED TO SELF, CONFUSED, REALITY ORIENTATION DURING ASSESSMENT, REQUIRE REPETITIVE INTERVENTIONS DUE TO COGNITIVE STATUS. DENIES PAIN. 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 IV INTACT TO LEFT FOREARM/GAUGE 22, TOLERATING IV FLUIDS, NO REDNESS/SWELLING NOTED. NO REPORT OF GI DISCOMFORT, NO N/V. BILATERAL WRIST RESTRAINTS INTACT TO PREVENT PATIENT FROM REMOVING DEVICES/CLIMBING OOB. SIDE RAILS UP X3/BED IN LOWEST POSITION FOR SAFETY, FREQUENT ROUNDING FOR SAFETY/NEEDS. CONTINUE WITH CURRENT PLAN OF CARE. NAD.
[2020-03-07] MEDS: Levemir Flexpen SUBQ SCH (21:00)
[2020-03-07] MEDS: Atorvastatin 20mg tab ORAL SCH (22:34)
[2020-03-07] MEDS: Miralax 17gm pkt ORAL SCH (22:35)
[2020-03-08] VITALS: BP 127/66
--- NOTE | 2020-03-08 03:56 | NUR ---
NURSE NOTES: RESTING WELL ON ROUNDS. NAD.
[2020-03-08 04:00] VITALS: BP 160/78
--- NOTE | 2020-03-08 05:30 | Progress Note ---
DATE: 03/06/2020 CARDIOLOGY PROGRESS NOTE SUBJECTIVE: The patient is more alert, has a better appetite, and remains on IV fluids as well as IV antimicrobials. OBJECTIVE: VITAL SIGNS: She is afebrile, blood pressure 145/75, heart rate 83, respiratory rate 20. LUNGS: Clear. CARDIAC: Regular. Normal S1, S2. ABDOMEN: Soft. EXTREMITIES: No edema. LABORATORY DATA: White count 8.3, hemoglobin 12.8. Sodium 148, potassium 3.2, chloride 114, bicarb 23, BUN 12, creatinine 0.7. IMPRESSION: 1. Hypophosphatemia, corrected. 2. Urinary tract infection, on therapy. 3. Hypothyroidism, on therapy, and now clinically euthyroid. 4. Type 2 diabetes mellitus with labile glucose due to poor appetite. 5. Hypernatremia, hyperchloremia, and dehydration persisting, but improving. 6. Paroxysmal atrial fibrillation, remains with stable cardiac rhythm. 7. Acute myocardial ischemia, resolved. 8. Toxic and metabolic encephalopathies, improved. PLAN: 1. Continue free water replacement by IV route. 2. DVT prophylaxis. 3. Titrate antihypertensive regimen. Konstantin Chu JOB#: [id number] CC:
[2020-03-08] MEDS: NovoLOG Insulin Flexpen SUBQ SCH ×4 (06:05→20:58)
--- NOTE | 2020-03-08 06:40 | NUR ---
NURSE NOTES: RESTED WELL, NO SIGNIFICANT CHANGE OF CONDITION NOTED THROUGHOUT THE NIGHT. SAFETY MAINTAINED. NAD,.
--- NOTE | 2020-03-08 06:45 | Progress Note ---
DATE: 03/07/2020 CARDIOLOGY PROGRESS NOTE SUBJECTIVE: The patient continues to improve with better oral intake. OBJECTIVE: VITAL SIGNS: Blood pressure 118/71, heart rate 76, respiratory rate 21, afebrile. LUNGS: Clear. CARDIAC: Regular. Normal S1, S2. ABDOMEN: Soft. EXTREMITIES: Trace edema. LABORATORY DATA: Sodium 146, potassium 3.1, bicarb 22, BUN 13, creatinine 0.7, glucose . IMPRESSION: 1. Toxic and metabolic encephalopathies. 2. Urinary tract infection with sepsis. 3. Dehydration. 4. Hypernatremia. 5. Hyperchloremia, persisting. 6. Hypokalemia. 7. Myocardial ischemia. 8. Paroxysmal atrial fibrillation. 9. Hypertensive heart disease with controlled blood pressure. 10. Hypoglycemia. PLAN: 1. Hypotonic IV fluids. 2. Replace potassium. 3. Antimicrobials. 4. Titrate antihypertensives. 5. No plans for anticoagulation in the absence of recurring sustained cardiac arrhythmias. 6. Titrate diabetic regimen. 7. Continue beta-blockade. Rory Dickson M.D. DR: Jcainto JOB#: [id number] CC:
--- NOTE | 2020-03-08 07:15 | NUR ---
NURSE NOTES: Received report from Maryann. Observed pt sleeping. IVF running at goal, IV site patent and asymptomatic. No s/sx of acute distress. Pt on bilateral soft wrist restraints, pulses are present. Bed on lowest position, call light within reach. Will continue plan of care.
[2020-03-08 08:00] VITALS: BP 138/56
--- NOTE | 2020-03-08 08:18 | General Progress Note ---
Assessment/Plan Problem List: (1) Pyelonephritis ICD Codes: N12 - Tubulo-interstitial nephritis, not specified as acute or chronic SNOMED: 26835410, 04098403 (2) Renal failure ICD Codes: N19 - Unspecified kidney failure SNOMED: 72466065, 47506505 (3) Coffee ground emesis ICD Codes: K92.0 - Hematemesis SNOMED: 05988951, 48347483 (4) Hyperglycemic crisis due to diabetes mellitus ICD Codes: E11.65 - Type 2 diabetes mellitus with hyperglycemia SNOMED: 524329997, 90316637 (5) Altered mental status ICD Codes: R41.82 - Altered mental status, unspecified SNOMED: 359565891 (6) Afib ICD Codes: I48.91 - Unspecified atrial fibrillation SNOMED: 09398363 Status: stable, not improved Assessment/Plan: Continue IV hydration- adjusted. Monitor lytes. monitor volume status. Insulin sliding scale. Monitor Accu-Cheks. encourage po. asp precautions po abx per id cultures reviewed. ID noted DVT and stress ulcer prophylaxis Turn every 2 hours repeat labs Subjective ROS Limited/Unobtainable: No Constitutional: Reports: malaise, weakness HEENT: Reports: no symptoms Cardiovascular: Reports: no symptoms Respiratory: Reports: no symptoms Gastrointestinal/Abdominal: Reports: no symptoms Genitourinary: Reports: no symptoms Neurologic/Psychiatric: Reports: no symptoms Endocrine: Reports: no symptoms Hematologic/Lymphatic: Reports: no symptoms Allergies: Coded Allergies: No Known Allergies (Unverified , 03/01/20) All Systems: reviewed and negative except above Subjective no events. stable. eating better 50-100%. blood sugars trending up. no fever or chills. no cough or sob. Objective Last 24 Hour Vital Signs Date Time Temp Pulse Resp B/P (MAP) Pulse Ox O2 Delivery O2 Flow Rate FiO2 03/08/20 04:01 81 03/08/20 04:00 97.9 80 20 160/78 (105) 95 03/08/20 00:00 97.9 73 21 127/66 (86) 95 03/08/20 00:00 73 03/07/20 22:35 79 134/76 03/07/20 20:02 Room Air 03/07/20 20:00 98.4 75 20 136/71 (92) 96 03/07/20 20:00 75 03/07/20 16:34 71 03/07/20 16:00 98.1 73 19 130/79 (96) 98 03/07/20 14:00 Room Air 03/07/20 12:00 98.6 62 18 135/69 (91) 96 03/07/20 09:31 72 115/71 Intake and Output 03/07/20 03/08/20 19:00 07:00 Intake Total 140 ml 905 ml Output Total 1200 ml Balance -1060 ml 905 ml Intake Oral 140 ml 380 ml IV Total 525 ml Output Urine Total 1200 ml # Voids 3 3 # Bowel Movements 2 Height (Feet): 5 Height (Inches): 7.00 Weight (Pounds): 118 Objective General Appearance: WD/WN, alert, less confused. thin EENT: normal ENT inspection Neck: supple Cardiovascular: normal peripheral pulses, normal rate, regular rhythm Respiratory/Chest: lungs clear, normal breath sounds, no respiratory distress Abdomen: normal bowel sounds, non tender, soft, no organomegaly, no mass Extremities: normal range of motion, non-tender Edema: no edema noted Arm (L), no edema noted Arm (R), no edema noted Leg (L), no edema noted Leg (R), no edema noted Pedal (L), no edema noted Pedal (R), no edema noted Generalized Neurologic: mat gauger II-XII grossly normal, alert, oriented x 3 Skin: normal pigmentation Lymphatic: normal anterior cervical (L), normal anterior cervical (R), normal posterior cervical (L), normal posterior cervical (R), normal submandibular (L) , normal submandibular (R), normal supraclavicular (L), normal supraclavicular ( R), normal axillary (L), normal axillary (R), normal inguinal (L), normal inguinal (R), normal other Larry Martinez MD Mar 08, 2020 08:18
--- NOTE | 2020-03-08 08:27 | Pulmonology Progress Note ---
Assessment/Plan Assessment/Plan 1. Diabetes out of control. 2. Hyperosmotic nonketotic state. 3. Lactic acidemia. 4. Metabolic acidosis. 5. Leukocytosis. 6. Possible sepsis. 7. Hemoconcentration. 8. COPD per history. No significant respiratory distress at this time. 9. History of CAD. Chest x-ray is negative. PLAN overall improved off antibiotics close followup respiratory status stable monitor oxygen needs follow up for change and recommend dc planning to snf once cleared with COVID x2 impression, plan, and exam edited and reviewed in detail care discussed with RN Subjective ROS Limited/Unobtainable: No Constitutional: Denies: fever, chills Gastrointestinal/Abdominal: Denies: nausea, vomiting, diarrhea Musculoskeletal: Denies: pain Allergies: Coded Allergies: No Known Allergies (Unverified , 03/01/20) All Systems: reviewed and negative except above Subjective care noted remains confused d/w nursing no distress Objective Last 24 Hour Vital Signs Date Time Temp Pulse Resp B/P (MAP) Pulse Ox O2 Delivery O2 Flow Rate FiO2 03/08/20 04:01 81 03/08/20 04:00 97.9 80 20 160/78 (105) 95 03/08/20 00:00 97.9 73 21 127/66 (86) 95 03/08/20 00:00 73 03/07/20 22:35 79 134/76 03/07/20 20:02 Room Air 03/07/20 20:00 98.4 75 20 136/71 (92) 96 03/07/20 20:00 75 03/07/20 16:34 71 03/07/20 16:00 98.1 73 19 130/79 (96) 98 03/07/20 14:00 Room Air 03/07/20 12:00 98.6 62 18 135/69 (91) 96 03/07/20 09:31 72 115/71 Intake and Output 03/07/20 03/08/20 19:00 07:00 Intake Total 140 ml 905 ml Output Total 1200 ml Balance -1060 ml 905 ml Intake Oral 140 ml 380 ml IV Total 525 ml Output Urine Total 1200 ml # Voids 3 3 # Bowel Movements 2 Objective WDWN NAD reduced breath sounds bilaterally without rhonchi or wheeze [id number] without MRG NABS nontender no HSM no CC mild edema nonfocal confused reviewed and edited HEENT: mucous membranes moist Abdomen: soft, non tender Extremities: no edema Neurologic/Psychiatric: disoriented, other - sleeping Current Medications Medications (Trade) Dose Ordered Sig/Roberto Route PRN Reason Start Time Stop Time Status Last Admin Dose Admin Acetaminophen (Tylenol) 650 mg Q4H PRN ORAL mild pain/fever 03/05/20 18:00 03/31/20 17:59 Al Hydroxide/Mg Hydroxide (Mylanta) 30 ml Q4H PRN ORAL Dyspepsia 03/05/20 18:00 03/31/20 17:59 Aripiprazole (Abilify) 5 mg DAILY ORAL 03/06/20 09:00 04/16/20 08:59 03/07/20 09:31 Ascorbic Acid (Vitamin C) 500 mg DAILY ORAL 03/06/20 09:00 04/01/20 08:59 03/07/20 09:31 Atorvastatin Calcium (Lipitor) 20 mg BEDTIME ORAL 03/05/20 21:00 05/30/20 20:59 03/07/20 22:34 Barium Sulfate (Varibar Honey) 250 ml NOW PRN MC RAD 03/06/20 11:00 03/09/20 10:51 Barium Sulfate (Varibar [place]) 240 ml NOW PRN MC RAD 03/06/20 11:00 03/09/20 10:51 Barium Sulfate (Varibar Pudding) 230 ml NOW PRN MC RAD 03/06/20 11:00 03/09/20 10:51 Dextrose (Dextrose 50%) 25 ml Q30M PRN IV Hypoglycemia 03/05/20 18:00 05/30/20 18:29 Dextrose (Dextrose 50%) 50 ml Q30M PRN IV Hypoglycemia 03/05/20 18:00 05/30/20 18:29 03/07/20 06:06 Docusate Sodium (Colace) 100 mg BIDPRN PRN ORAL Constipation 03/06/20 18:00 04/03/20 17:59 Heparin Sodium (Porcine) (Heparin 5000 units/ml) 5,000 units EVERY 12 HOURS SUBQ 03/05/20 21:00 04/19/20 08:59 03/07/20 22:52 Insulin Aspart (NovoLOG) BEFORE MEALS AND HS SUBQ 03/05/20 21:00 05/30/20 20:59 03/08/20 06:05 Insulin Detemir (Levemir) 10 units BEDTIME SUBQ 03/05/20 21:00 06/02/20 20:59 03/07/20 21:00 Levothyroxine Sodium (Synthroid) 150 mcg 0630 ORAL 03/06/20 06:30 04/01/20 06:29 03/08/20 06:02 Lorazepam (Ativan) 1 mg Q4HR PRN ORAL For Anxiety 03/06/20 20:45 03/13/20 20:44 03/07/20 17:35 Metoprolol Tartrate (Lopressor) 50 mg Q12HR ORAL 03/06/20 09:00 06/04/20 08:59 03/07/20 22:35 Mirtazapine (Remeron) 7.5 mg BEDTIME ORAL 03/05/20 21:00 05/30/20 20:59 03/07/20 22:35 Multivitamins (Multivitamins) 1 tab DAILY ORAL 03/06/20 09:00 04/01/20 08:59 03/07/20 09:31 Pantoprazole (Protonix) 40 mg Q12HR ORAL 03/06/20 21:00 04/05/20 20:59 03/07/20 22:34 Polyethylene Glycol (Miralax) 17 gm BEDTIME ORAL 03/05/20 21:00 04/03/20 20:59 03/07/20 22:35 Potassium Chloride 10 meq/ Dextrose/Sodium Chloride 1,005 ml @ 75 mls/hr [id number] IV 03/07/20 10:00 04/06/20 09:59 03/07/20 23:01 Russell Goyal MD Mar 08, 2020 08:27
[2020-03-08 08:56] LABS: BASOPHILS % (AUTO) 0.7 % (0.0-2.0); EOSINOPHILS % (AUTO) 1.9 % (0.0-3.0); HEMATOCRIT 35.8 % (37.0-47.0); LYMPHOCYTES % (AUTO) 15.3 % (20.0-45.0); MEAN CORPUSCULAR VOLUME 81 FL (80-99); MONOCYTES % (AUTO) 9.7 % (1.0-10.0); NEUTROPHILS % (AUTO) 72.4 % (45.0-75.0); PLATELET COUNT 234 K/UL (150-450); RED BLOOD COUNT 4.43 M/UL (4.20-5.40); RED CELL DISTRIBUTION WIDTH 13.2 % (11.6-14.8); WHITE BLOOD COUNT 9.3 K/UL (4.8-10.8)
[2020-03-08 09:20] LABS: ALANINE AMINOTRANSFERASE 15 U/L (12-78); ALBUMIN 2.3 G/DL (3.4-5.0); ALBUMIN/GLOBULIN RATIO 0.6 (1.0-2.7); ALKALINE PHOSPHATASE 74 U/L (46-116); ANION GAP 10 mmol/L (5-15); ASPARTATE AMINO TRANSFERASE 10 U/L (15-37); BILIRUBIN,TOTAL 0.2 MG/DL (0.2-1.0); BLOOD UREA NITROGEN 10 mg/dL (7-18); CALCIUM 8.6 MG/DL (8.5-10.1); CARBON DIOXIDE 21 MMOL/L (21-32); CHLORIDE 111 MMOL/L (98-107); CREATININE 0.9 MG/DL (0.55-1.30); POTASSIUM 3.4 MMOL/L (3.5-5.1); SODIUM 142 MMOL/L (136-145)
[2020-03-08] MEDS: Ascorbic Acid 500mg tab ORAL SCH (09:51)
[2020-03-08] MEDS: Metoprolol Tartrate 50mg tab ORAL SCH ×2 (09:51→20:54)
[2020-03-08] MEDS: Heparin 5000 units/ml inj SUBQ SCH ×2 (09:51→20:55)
--- NOTE | 2020-03-08 10:48 | Infectious Diseases Prog Note ---
Assessment/Plan Assessment/Plan antibiotics : none A 1. klebsiella esbl UTI s/p rx 2. Diabetes. 3. Hypertension. 4. COVID-19 test negative 03.01.20 5. COPD. 6. rectal VRE colonization P 1. continue off antibiotics Subjective ROS Limited/Unobtainable: Yes Allergies: Coded Allergies: No Known Allergies (Unverified , 03/01/20) Objective Vital Signs Last 24 Hour Vital Signs Date Time Temp Pulse Resp B/P (MAP) Pulse Ox O2 Delivery O2 Flow Rate FiO2 03/08/20 09:51 74 138/56 03/08/20 08:00 96.8 74 20 138/56 (83) 96 03/08/20 07:39 68 03/08/20 04:01 81 03/08/20 04:00 97.9 80 20 160/78 (105) 95 03/08/20 00:00 97.9 73 21 127/66 (86) 95 03/08/20 00:00 73 03/07/20 22:35 79 134/76 03/07/20 20:02 Room Air 03/07/20 20:00 98.4 75 20 136/71 (92) 96 03/07/20 20:00 75 03/07/20 16:34 71 03/07/20 16:00 98.1 73 19 130/79 (96) 98 03/07/20 14:00 Room Air 03/07/20 12:00 98.6 62 18 135/69 (91) 96 Height (Feet): 5 Height (Inches): 7.00 Weight (Pounds): 118 Respiratory/Chest: lungs clear Cardiovascular: normal rate, regular rhythm, no gallop/murmur Abdomen: soft, non tender Extremities: no edema Laboratory Tests Test 03/08/20 08:05 White Blood Count 9.3 K/UL (4.8-10.8) Red Blood Count 4.43 M/UL (4.20-5.40) Hemoglobin 12.0 G/DL (12.0-16.0) Hematocrit 35.8 % (37.0-47.0) L Mean Corpuscular Volume 81 FL (80-99) Mean Corpuscular Hemoglobin 27.0 PG (27.0-31.0) Mean Corpuscular Hemoglobin Concent 33.4 G/DL (32.0-36.0) Red Cell Distribution Width 13.2 % (11.6-14.8) Platelet Count 234 K/UL (150-450) Mean Platelet Volume 8.1 FL (6.5-10.1) Neutrophils (%) (Auto) 72.4 % (45.0-75.0) Lymphocytes (%) (Auto) 15.3 % (20.0-45.0) L Monocytes (%) (Auto) 9.7 % (1.0-10.0) Eosinophils (%) (Auto) 1.9 % (0.0-3.0) Basophils (%) (Auto) 0.7 % (0.0-2.0) Sodium Level 142 MMOL/L (136-145) Potassium Level 3.4 MMOL/L (3.5-5.1) L Chloride Level 111 MMOL/L (98-107) H Carbon Dioxide Level 21 MMOL/L (21-32) Anion Gap 10 mmol/L (5-15) Blood Urea Nitrogen 10 mg/dL (7-18) Creatinine 0.9 MG/DL (0.55-1.30) Estimat Glomerular Filtration Rate > 60 mL/min (>60) Glucose Level 249 MG/DL (74-106) #H Calcium Level 8.6 MG/DL (8.5-10.1) Total Bilirubin 0.2 MG/DL (0.2-1.0) Aspartate Amino Transf (AST/SGOT) 10 U/L (15-37) L Alanine Aminotransferase (ALT/SGPT) 15 U/L (12-78) Alkaline Phosphatase 74 U/L (46-116) Total Protein 5.9 G/DL (6.4-8.2) L Albumin 2.3 G/DL (3.4-5.0) L Globulin 3.6 g/dL Albumin/Globulin Ratio 0.6 (1.0-2.7) L Current Medications Medications (Trade) Dose Ordered Sig/Roberto Route PRN Reason Start Time Stop Time Status Last Admin Dose Admin Acetaminophen (Tylenol) 650 mg Q4H PRN ORAL mild pain/fever 03/05/20 18:00 03/31/20 17:59 Al Hydroxide/Mg Hydroxide (Mylanta) 30 ml Q4H PRN ORAL Dyspepsia 03/05/20 18:00 03/31/20 17:59 Aripiprazole (Abilify) 5 mg DAILY ORAL 03/06/20 09:00 04/16/20 08:59 03/08/20 09:51 Ascorbic Acid (Vitamin C) 500 mg DAILY ORAL 03/06/20 09:00 04/01/20 08:59 03/08/20 09:51 Atorvastatin Calcium (Lipitor) 20 mg BEDTIME ORAL 03/05/20 21:00 05/30/20 20:59 03/07/20 22:34 Barium Sulfate (Varibar Honey) 250 ml NOW PRN MC RAD 03/06/20 11:00 03/09/20 10:51 Barium Sulfate (Varibar [place]) 240 ml NOW PRN MC RAD 03/06/20 11:00 03/09/20 10:51 Barium Sulfate (Varibar Pudding) 230 ml NOW PRN MC RAD 03/06/20 11:00 03/09/20 10:51 Dextrose (Dextrose 50%) 25 ml Q30M PRN IV Hypoglycemia 03/05/20 18:00 05/30/20 18:29 Dextrose (Dextrose 50%) 50 ml Q30M PRN IV Hypoglycemia 03/05/20 18:00 05/30/20 18:29 03/07/20 06:06 Docusate Sodium (Colace) 100 mg BIDPRN PRN ORAL Constipation 03/06/20 18:00 04/03/20 17:59 Heparin Sodium (Porcine) (Heparin 5000 units/ml) 5,000 units EVERY 12 HOURS SUBQ 03/05/20 21:00 04/19/20 08:59 03/08/20 09:51 Insulin Aspart (NovoLOG) BEFORE MEALS AND HS SUBQ 03/05/20 21:00 05/30/20 20:59 03/08/20 06:05 Insulin Detemir (Levemir) 10 units BEDTIME SUBQ 03/05/20 21:00 06/02/20 20:59 03/07/20 21:00 Levothyroxine Sodium (Synthroid) 150 mcg 0630 ORAL 03/06/20 06:30 04/01/20 06:29 03/08/20 06:02 Lorazepam (Ativan) 1 mg Q4HR PRN ORAL For Anxiety 03/06/20 20:45 03/13/20 20:44 03/07/20 17:35 Metoprolol Tartrate (Lopressor) 50 mg Q12HR ORAL 03/06/20 09:00 06/04/20 08:59 03/08/20 09:51 Mirtazapine (Remeron) 7.5 mg BEDTIME ORAL 03/05/20 21:00 05/30/20 20:59 03/07/20 22:35 Multivitamins (Multivitamins) 1 tab DAILY ORAL 03/06/20 09:00 04/01/20 08:59 03/08/20 09:51 Pantoprazole (Protonix) 40 mg Q12HR ORAL 03/06/20 21:00 04/05/20 20:59 03/08/20 09:51 Polyethylene Glycol (Miralax) 17 gm BEDTIME ORAL 03/05/20 21:00 04/03/20 20:59 03/07/20 22:35 Potassium Chloride 40 meq/ Sodium Chloride 1,020 ml @ 75 mls/hr [id number] IV 03/08/20 10:30 04/07/20 10:29 Clau Tinsley MD Mar 08, 2020 10:48
[2020-03-08] MEDS: Potassium Chloride 40 MEQ in 1/2 NS 1000ml 1,000 ML IV SCH (11:29)
[2020-03-08 12:00] VITALS: BP 126/59
--- NOTE | 2020-03-08 13:16 | General Progress Note ---
Assessment/Plan Status: stable, not improved Assessment/Plan: 1. History of diabetes. 2. Hypertension. 3. Coronary artery disease and myocardial infarction. 4. COPD. 5. GERD. 6. CVA. 7. Dementia. 8. Psychiatric disorder including schizophrenia 9. Coffee ground emesis stable H&H ppi fu labs push po's neg stool ob bowel regimen GI procedures on hold given stable H&H and neg stool ob Subjective ROS Limited/Unobtainable: No Allergies: Coded Allergies: No Known Allergies (Unverified , 03/01/20) Objective Last 24 Hour Vital Signs Date Time Temp Pulse Resp B/P (MAP) Pulse Ox O2 Delivery O2 Flow Rate FiO2 03/08/20 12:00 96.8 64 20 126/59 (81) 98 03/08/20 11:45 68 03/08/20 09:51 74 138/56 03/08/20 09:00 Room Air 03/08/20 08:00 96.8 74 20 138/56 (83) 96 03/08/20 07:39 68 03/08/20 06:00 Room Air 03/08/20 04:01 81 03/08/20 04:00 97.9 80 20 160/78 (105) 95 03/08/20 00:00 97.9 73 21 127/66 (86) 95 03/08/20 00:00 73 03/07/20 22:35 79 134/76 03/07/20 20:02 Room Air 03/07/20 20:00 98.4 75 20 136/71 (92) 96 03/07/20 20:00 75 03/07/20 16:34 71 03/07/20 16:00 98.1 73 19 130/79 (96) 98 03/07/20 14:00 Room Air Intake and Output 03/07/20 03/08/20 19:00 07:00 Intake Total 140 ml 905 ml Output Total 1200 ml Balance -1060 ml 905 ml Intake Oral 140 ml 380 ml IV Total 525 ml Output Urine Total 1200 ml # Voids 3 3 # Bowel Movements 2 Laboratory Tests 03/08/20 08:05: White Blood Count 9.3, Red Blood Count 4.43, Hemoglobin 12.0, Hematocrit 35.8L, Mean Corpuscular Volume 81, Mean Corpuscular Hemoglobin 27.0, Mean Corpuscular Hemoglobin Concent 33.4, Red Cell Distribution Width 13.2, Platelet Count 234, Mean Platelet Volume 8.1, Neutrophils (%) (Auto) 72.4, Lymphocytes (%) (Auto) 15.3L, Monocytes (%) (Auto) 9.7, Eosinophils (%) (Auto) 1.9, Basophils (%) (Auto ) 0.7, Sodium Level 142, Potassium Level 3.4L, Chloride Level 111H, Carbon Dioxide Level 21, Anion Gap 10, Blood Urea Nitrogen 10, Creatinine 0.9, Estimat Glomerular Filtration Rate > 60, Glucose Level 249#H, Calcium Level 8.6, Total Bilirubin 0.2, Aspartate Amino Transf (AST/SGOT) 10L, Alanine Aminotransferase ( ALT/SGPT) 15, Alkaline Phosphatase 74, Total Protein 5.9L, Albumin 2.3L, Globulin 3.6, Albumin/Globulin Ratio 0.6L Height (Feet): 5 Height (Inches): 7.00 Weight (Pounds): 118 General Appearance: no apparent distress EENT: normal ENT inspection Neck: supple Cardiovascular: normal rate Respiratory/Chest: decreased breath sounds Abdomen: normal bowel sounds, non tender, soft Extremities: non-tender Pollo Hoover MD Mar 08, 2020 13:15
--- NOTE | 2020-03-08 15:15 | NUR ---
CASE MANAGEMENT:REVIEW 03/06/20 SI: PYELONEPHRITIS. RENAL FAILURE COVID 19 NOT DETECTED 96.8 64 20 126/59 98% ON RA GLUCOSE+249 IS: PROTONIX PO Q12 IVF+KCL@ 75/HR VIT C PO QD MVI PO QD JANUVIA PO QD LOPRESSOR PO Q12 SYNTHROID PO QAM HEPARIN SQ Q12 LEVEMIR SQ QHS REMERON PO QHS : NOW ON TELEMETRY FROM SDU DCP: FROM [facility] PLAN: COVID 19 RESULTS PENDING
--- NOTE | 2020-03-08 15:17 | NUR ---
DISCHARGE PLANNING PATIENT IS FROM [facility] PLAN IS FOR PATIENT TO RETURN TO [facility] ONCE SECOND COVID 19 IS RESULTED AND FAXED TO [facility] THEY ARE WILLING TO ACCEPT PATIENT BACK PENDING RESULTS [facility] ON [facility] T: [phone] F: [phone] NETWORK MANAGEMENT SPECIALIST IS CHRISTEL
[2020-03-08] MEDS ORDERED: D5W 275ml ONE (15:36)
--- NOTE | 2020-03-08 15:56 | Nephrology Progress Note ---
Assessment/Plan Problem List: (1) Hypernatremia (2) Dehydration (3) Pyelonephritis (4) Hyperglycemic crisis due to diabetes mellitus (5) Altered mental status Plan iv adjusted continue hydration and antibiotics replace k Subjective ROS Limited/Unobtainable: Yes Objective Objective Last 24 Hour Vital Signs Date Time Temp Pulse Resp B/P (MAP) Pulse Ox O2 Delivery O2 Flow Rate FiO2 03/08/20 14:00 Room Air 03/08/20 12:00 96.8 64 20 126/59 (81) 98 03/08/20 11:45 68 03/08/20 09:51 74 138/56 03/08/20 09:00 Room Air 03/08/20 08:00 96.8 74 20 138/56 (83) 96 03/08/20 07:39 68 03/08/20 06:00 Room Air 03/08/20 04:01 81 03/08/20 04:00 97.9 80 20 160/78 (105) 95 03/08/20 00:00 97.9 73 21 127/66 (86) 95 03/08/20 00:00 73 03/07/20 22:35 79 134/76 03/07/20 20:02 Room Air 03/07/20 20:00 98.4 75 20 136/71 (92) 96 03/07/20 20:00 75 03/07/20 16:34 71 03/07/20 16:00 98.1 73 19 130/79 (96) 98 Intake and Output 03/07/20 03/08/20 19:00 07:00 Intake Total 140 ml 905 ml Output Total 1200 ml Balance -1060 ml 905 ml Intake Oral 140 ml 380 ml IV Total 525 ml Output Urine Total 1200 ml # Voids 3 3 # Bowel Movements 2 Laboratory Tests 03/08/20 08:05: White Blood Count 9.3, Red Blood Count 4.43, Hemoglobin 12.0, Hematocrit 35.8L, Mean Corpuscular Volume 81, Mean Corpuscular Hemoglobin 27.0, Mean Corpuscular Hemoglobin Concent 33.4, Red Cell Distribution Width 13.2, Platelet Count 234, Mean Platelet Volume 8.1, Neutrophils (%) (Auto) 72.4, Lymphocytes (%) (Auto) 15.3L, Monocytes (%) (Auto) 9.7, Eosinophils (%) (Auto) 1.9, Basophils (%) (Auto ) 0.7, Sodium Level 142, Potassium Level 3.4L, Chloride Level 111H, Carbon Dioxide Level 21, Anion Gap 10, Blood Urea Nitrogen 10, Creatinine 0.9, Estimat Glomerular Filtration Rate > 60, Glucose Level 249#H, Calcium Level 8.6, Total Bilirubin 0.2, Aspartate Amino Transf (AST/SGOT) 10L, Alanine Aminotransferase ( ALT/SGPT) 15, Alkaline Phosphatase 74, Total Protein 5.9L, Albumin 2.3L, Globulin 3.6, Albumin/Globulin Ratio 0.6L Height (Feet): 5 Height (Inches): 7.00 Weight (Pounds): 118 General Appearance: lethargic, confused EENT: normal ENT inspection Neck: normal alignment Cardiovascular: normal rate, regular rhythm Respiratory/Chest: lungs clear Abdomen: normal bowel sounds, soft Extremities: no edema Neurologic: disoriented Jose Martin Estevez MD Mar 08, 2020 15:56
[2020-03-08 16:00] VITALS: BP 128/68
--- NOTE | 2020-03-08 16:32 | NUR ---
NURSE NOTES: Received an order to renew restraints. Order placed today at 1632.
--- NOTE | 2020-03-08 19:39 | NUR ---
HAND-OFF: Report given to Maryann. Pt in stable condition, endorsed plan of care.
[2020-03-08 20:00] VITALS: BP 115/76
--- NOTE | 2020-03-08 20:00 | NUR ---
NURSE NOTES: RECEIVED PATIENT LYING IN BED, EYES OPEN, VERBALLY RESPONSIVE, DENIES PAIN, ORIENTED TO SELF/PLACE, FORGETFUL/CONFUSED, IV INTACT, TOLERATING IV FLUIDS, NO REDNESS/SWELLING NOTED TO SITE. BILATERAL WRIST RESTRAINTS INTACT TO PREVENT PATIENT FROM CLIMBING OUT OF BED/REMOVING TUBINGS. NO SIGNS AND SYMPTOMS OF ACUTE CARDIO RESPIRATORY DISTRESS/SHORTNESS OF BREATH, DENIES CHEST PAIN, NO PERIPHERAL EDEMA NOTED. ABDOMEN SOFT/NON DISTENDED, INCONTINENT OF B/B, CARE PROVIDED, REPOSITIONED FOR COMFORT/PRESSURE RELIEF, TOLERATED WELL. SIDE RAILS UP X3/BED IN LOWEST POSITION FOR SAFETY, BED ALARM ACTIVATED, FREQUENT ROUNDING FOR SAFETY/NEEDS. NAD.
[2020-03-08] MEDS: Atorvastatin 20mg tab ORAL SCH (20:49)
[2020-03-08] MEDS: Miralax 17gm pkt ORAL SCH (20:49)
[2020-03-08] MEDS: Levemir Flexpen SUBQ SCH (20:56)
[2020-03-09] VITALS: BP 133/72
[2020-03-09] MEDS: Potassium Chloride 40 MEQ in 1/2 NS 1000ml 1,000 ML IV SCH ×2 (00:06→10:06)
[2020-03-09 04:00] VITALS: BP 160/78
--- NOTE | 2020-03-09 04:30 | Progress Note ---
DATE: 03/08/2020 CARDIOLOGY PROGRESS NOTE SUBJECTIVE: The patient has better oral intake. No cough, shortness of breath, or chest pain. OBJECTIVE: VITAL SIGNS: Blood pressure 127/66 to 160/78, heart rate 70s, respiratory rate 20. No fevers. LUNGS: Good breath sounds. CARDIAC: Regular rhythm and rate. Normal S1, S2. ABDOMEN: Soft. EXTREMITIES: No edema. LABORATORY DATA: White count 9, hemoglobin 12. Sodium 142, potassium 3.4, BUN 10, creatinine 0.9, glucose 249. Albumin 2.3. IMPRESSION: 1. Dehydration. 2. Hypernatremia, resolved. 3. Hypokalemia, persists. 4. No hypomagnesemia. 5. Paroxysmal atrial fibrillation. 6. Hypophosphatemia, corrected. 7. Euthyroid state, on replacement therapy. 8. Acute myocardial ischemia, resolved. 9. Improving metabolic and toxic encephalopathy. PLAN: 1. Replace potassium. 2. Maintenance hypotonic IV fluids. 3. Encourage nutritional intake. 4. Continue current cardiovascular regimen, which includes statin drug and beta-randall. 5. We will restart low-dose aspirin since stool occult blood is negative. Rory Dickson M.D. DR: Jacinto JOB#: [id number] CC:
--- NOTE | 2020-03-09 05:15 | Progress Note ---
DATE: 03/08/2020 CARDIOLOGY PROGRESS NOTE SUBJECTIVE: Intake improves. No change in review of systems. PHYSICAL EXAMINATION: VITAL SIGNS: Vitals reviewed and blood pressure parameters stable with oxygen saturation on room air 96%. Remains with sinus rhythm. No recurring atrial fibrillation. LUNGS: Clear. CARDIAC: Regular. Normal S1, S2. A 1/6 systolic murmur at apex. ABDOMEN: Soft. EXTREMITIES: No edema. LABORATORY DATA: Labs reviewed. IMPRESSION: 1. Dehydration. 2. . 3. Hypokalemia, corrected and improved. 4. Glucose parameters stabilizing but still at suboptimal. 5. Severe protein-calorie malnutrition on supplements with improving oral intake. 6. Paroxysmal atrial fibrillation, remaining with stable cardiac rhythm. 7. Resolved myocardial ischemia. 8. Improved toxic and metabolic encephalopathy. 9. Urinary tract infection with severe sepsis on antimicrobials. PLAN: 1. Reviewed medication regimen. 2. Discussed with primary care physician and nursing staff. 3. Plan of care updated. 4. We will continue to follow. 5. We will consider discontinuation of film archivist if progress continues. Rory Dickson M.D. DR: Veronica JOB#: [id number] CC:
[2020-03-09] MEDS: NovoLOG Insulin Flexpen SUBQ SCH ×4 (06:09→20:44)
--- NOTE | 2020-03-09 06:12 | NUR ---
NURSE NOTES: RESTED WELL, NO SIGNIFICANT CHANGE OF CONDITION NOTED THROUGHOUT THE NIGHT. SAFETY MAINTAINED. NAD.
[2020-03-09 08:00] VITALS: BP 142/63
--- NOTE | 2020-03-09 08:00 | NUR ---
NURSE NOTES: Report received from Daniele DE LOS SANTOS. Patient is observed in bed, awake, alert, and oriented with periods of forgetfulness. Respiratory even and unlabored. IV site is asymptomatic, patent, and intact. IVF running at a prescribed rate. Bed is in lowest position with side rails up x2 and brakes are engaged. Bed alarm is on. Encouraged pt to use call light when in need of assistance, pt verbalized understanding. Will continue to monitor.
[2020-03-09 08:25] LABS: BASOPHILS % (AUTO) 0.8 % (0.0-2.0); EOSINOPHILS % (AUTO) 3.4 % (0.0-3.0); HEMATOCRIT 35.7 % (37.0-47.0); HEMOGLOBIN 11.8 G/DL (12.0-16.0); LYMPHOCYTES % (AUTO) 32.6 % (20.0-45.0); MEAN CORPUSCULAR VOLUME 81 FL (80-99); NEUTROPHILS % (AUTO) 52.2 % (45.0-75.0); PLATELET COUNT 234 K/UL (150-450); RED BLOOD COUNT 4.43 M/UL (4.20-5.40)
--- NOTE | 2020-03-09 08:34 | General Progress Note ---
Assessment/Plan Problem List: (1) Pyelonephritis ICD Codes: N12 - Tubulo-interstitial nephritis, not specified as acute or chronic SNOMED: 05492854, 88458398 (2) Renal failure ICD Codes: N19 - Unspecified kidney failure SNOMED: 16792314, 49995023 (3) Coffee ground emesis ICD Codes: K92.0 - Hematemesis SNOMED: 69813714, 33519161 (4) Hyperglycemic crisis due to diabetes mellitus ICD Codes: E11.65 - Type 2 diabetes mellitus with hyperglycemia SNOMED: 941649914, 76011100 (5) Altered mental status ICD Codes: R41.82 - Altered mental status, unspecified SNOMED: 956986632 (6) Afib ICD Codes: I48.91 - Unspecified atrial fibrillation SNOMED: 42212098 Status: stable, not improved Assessment/Plan: monitor off abx follow up pending labs Insulin sliding scale. Monitor Accu-Cheks. encourage po. asp precautions DVT and stress ulcer prophylaxis Turn every 2 hours dc planning Subjective ROS Limited/Unobtainable: No Constitutional: Reports: malaise, weakness HEENT: Reports: no symptoms Cardiovascular: Reports: no symptoms Respiratory: Reports: no symptoms Gastrointestinal/Abdominal: Reports: no symptoms Genitourinary: Reports: no symptoms Neurologic/Psychiatric: Reports: anxiety, emotional problems, pre-existing deficit Endocrine: Reports: no symptoms Hematologic/Lymphatic: Reports: anemia Allergies: Coded Allergies: No Known Allergies (Unverified , 03/01/20) All Systems: reviewed and negative except above Subjective no new events. no fever or chills. no cough. on abx. eating well. alert. follows commands but confused. covid neg. completed abx for uti Objective Last 24 Hour Vital Signs Date Time Temp Pulse Resp B/P (MAP) Pulse Ox O2 Delivery O2 Flow Rate FiO2 03/09/20 04:00 97.9 80 20 160/78 (105) 95 03/09/20 04:00 77 03/09/20 00:00 98.3 72 18 133/72 (92) 97 03/09/20 00:00 71 03/08/20 21:14 78 03/08/20 20:54 80 129/71 03/08/20 20:18 Room Air 03/08/20 20:00 98.2 77 17 115/76 (89) 97 03/08/20 16:15 67 03/08/20 16:00 97.6 71 20 128/68 (88) 96 03/08/20 14:00 Room Air 03/08/20 12:00 96.8 64 20 126/59 (81) 98 03/08/20 11:45 68 03/08/20 09:51 74 138/56 03/08/20 09:00 Room Air Intake and Output 03/08/20 03/09/20 19:00 07:00 Intake Total 720 ml 435 ml Balance 720 ml 435 ml Intake Oral 720 ml 360 ml IV Total 75 ml # Voids 4 5 Laboratory Tests 03/09/20 07:30: White Blood Count [Pending], Red Blood Count [Pending], Hemoglobin [Pending], Hematocrit [Pending], Mean Corpuscular Volume [Pending], Mean Corpuscular Hemoglobin [Pending], Mean Corpuscular Hemoglobin Concent [Pending], Red Cell Distribution Width [Pending], Platelet Count [Pending], Mean Platelet Volume [ Pending], Neutrophils (%) (Auto) [Pending], Lymphocytes (%) (Auto) [Pending], Monocytes (%) (Auto) [Pending], Eosinophils (%) (Auto) [Pending], Basophils (%) (Auto) [Pending], Sodium Level [Pending], Potassium Level [Pending], Chloride Level [Pending], Carbon Dioxide Level [Pending], Blood Urea Nitrogen [Pending], Creatinine [Pending], Estimat Glomerular Filtration Rate [Pending], Glucose Level [Pending], Calcium Level [Pending], Phosphorus Level [Pending], Magnesium Level [Pending] Height (Feet): 5 Height (Inches): 7.00 Weight (Pounds): 118 Objective General Appearance: WD/WN, alert, less confused. 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
[2020-03-09 08:53] LABS: ANION GAP 11 mmol/L (5-15); BLOOD UREA NITROGEN 11 mg/dL (7-18); CALCIUM 8.9 MG/DL (8.5-10.1); CARBON DIOXIDE 22 MMOL/L (21-32); CHLORIDE 110 MMOL/L (98-107); CREATININE 0.8 MG/DL (0.55-1.30); POTASSIUM 3.7 MMOL/L (3.5-5.1); SODIUM 143 MMOL/L (136-145)
[2020-03-09 09:07] LABS: PHOSPHORUS 3.1 MG/DL (2.5-4.9)
[2020-03-09] MEDS: Heparin 5000 units/ml inj SUBQ SCH ×2 (09:44→20:25)
[2020-03-09] MEDS: Aspirin EC 81mg tab ORAL SCH (09:44)
[2020-03-09] MEDS: Metoprolol Tartrate 50mg tab ORAL SCH ×2 (09:45→20:26)
[2020-03-09] MEDS: Ascorbic Acid 500mg tab ORAL SCH (09:46)
[2020-03-09 11:28] VITALS: BP 142/61
--- NOTE | 2020-03-09 12:00 | NUR ---
NURSE NOTES: Patient is observed in bed. Patient is able to eat 75% of meal. No s/s of aspiration. IVF is running at a prescribed rate. No c/o pain at this time. Will continue to monitor.
--- NOTE | 2020-03-09 12:59 | GI Progress Note ---
Assessment/Plan Problems: (1) Altered mental status ICD Codes: R41.82 - Altered mental status, unspecified SNOMED: 069782646 (2) Coffee ground emesis ICD Codes: K92.0 - Hematemesis SNOMED: 77471957, 93263156 (3) Dehydration ICD Codes: E86.0 - Dehydration SNOMED: 72502941 (4) Hypernatremia ICD Codes: E87.0 - Hyperosmolality and hypernatremia SNOMED: 399022271 Status: unchanged Status Narrative Discussed with Dr. Hoover. Assessment/Plan 1. History of diabetes. 2. Hypertension. 3. Coronary artery disease and myocardial infarction. 4. COPD. 5. GERD. 6. CVA. 7. Dementia. 8. Psychiatric disorder including schizophrenia 9. Coffee ground emesis stable H&H ppi fu labs push po's neg stool ob bowel regimen GI procedures on hold given stable H&H and neg stool ob The patient was seen and examined at bedside and all new and available data was reviewed in the patients chart. I agree with the above findings, impression and plan. (Patient seen earlier today. Signature stamp does not reflect patient encounter time.). - Pollo Hoover MD Subjective Gastrointestinal/Abdominal: Reports: no symptoms Objective Last 24 Hour Vital Signs Date Time Temp Pulse Resp B/P (MAP) Pulse Ox O2 Delivery O2 Flow Rate FiO2 03/09/20 11:28 98.2 75 20 142/61 (88) 95 03/09/20 09:45 67 142/63 03/09/20 08:02 71 03/09/20 08:00 97.9 67 20 142/63 (89) 95 03/09/20 04:00 97.9 80 20 160/78 (105) 95 03/09/20 04:00 77 03/09/20 00:00 98.3 72 18 133/72 (92) 97 03/09/20 00:00 71 03/08/20 21:14 78 03/08/20 20:54 80 129/71 03/08/20 20:18 Room Air 03/08/20 20:00 98.2 77 17 115/76 (89) 97 03/08/20 16:15 67 03/08/20 16:00 97.6 71 20 128/68 (88) 96 03/08/20 14:00 Room Air Intake and Output 03/08/20 03/09/20 19:00 07:00 Intake Total 720 ml 435 ml Balance 720 ml 435 ml Intake Oral 720 ml 360 ml IV Total 75 ml # Voids 4 5 Laboratory Tests Test 03/09/20 07:30 White Blood Count 10.0 K/UL (4.8-10.8) Red Blood Count 4.43 M/UL (4.20-5.40) Hemoglobin 11.8 G/DL (12.0-16.0) L Hematocrit 35.7 % (37.0-47.0) L Mean Corpuscular Volume 81 FL (80-99) Mean Corpuscular Hemoglobin 26.7 PG (27.0-31.0) L Mean Corpuscular Hemoglobin Concent 33.2 G/DL (32.0-36.0) Red Cell Distribution Width 13.0 % (11.6-14.8) Platelet Count 234 K/UL (150-450) Mean Platelet Volume 7.5 FL (6.5-10.1) Neutrophils (%) (Auto) 52.2 % (45.0-75.0) Lymphocytes (%) (Auto) 32.6 % (20.0-45.0) Monocytes (%) (Auto) 11.0 % (1.0-10.0) H Eosinophils (%) (Auto) 3.4 % (0.0-3.0) H Basophils (%) (Auto) 0.8 % (0.0-2.0) Sodium Level 143 MMOL/L (136-145) Potassium Level 3.7 MMOL/L (3.5-5.1) Chloride Level 110 MMOL/L (98-107) H Carbon Dioxide Level 22 MMOL/L (21-32) Anion Gap 11 mmol/L (5-15) Blood Urea Nitrogen 11 mg/dL (7-18) Creatinine 0.8 MG/DL (0.55-1.30) Estimat Glomerular Filtration Rate > 60 mL/min (>60) Glucose Level 126 MG/DL (74-106) #H Calcium Level 8.9 MG/DL (8.5-10.1) Phosphorus Level 3.1 MG/DL (2.5-4.9) Magnesium Level 1.9 MG/DL (1.8-2.4) Height (Feet): 5 Height (Inches): 7.00 Weight (Pounds): 118 General Appearance: alert Cardiovascular: normal rate, regular rhythm Respiratory/Chest: normal breath sounds Abdominal Exam: soft Henrique Crawford CARDIOVASCULAR DISEASE SPECIALIST Mar 09, 2020 12:59
[2020-03-09 16:00] VITALS: BP 128/81
--- NOTE | 2020-03-09 16:41 | Pulmonology Progress Note ---
Assessment/Plan Assessment/Plan 1. Diabetes out of control. 2. Hyperosmotic nonketotic state. 3. Lactic acidemia. 4. Metabolic acidosis. 5. Leukocytosis. 6. Possible sepsis. 7. Hemoconcentration. 8. COPD per history. No significant respiratory distress at this time. 9. History of CAD. Chest x-ray is negative. PLAN overall improved off antibiotics close followup respiratory status stable monitor oxygen needs follow up for change and recommend dc planning to snf impression, plan, and exam edited and reviewed in detail care discussed with RN Subjective ROS Limited/Unobtainable: Yes Constitutional: Denies: fever, chills Gastrointestinal/Abdominal: Denies: nausea, vomiting, diarrhea Musculoskeletal: Denies: pain Allergies: Coded Allergies: No Known Allergies (Unverified , 03/01/20) All Systems: reviewed and negative except above Subjective care noted remains confused d/w nursing no distress COVID negative Objective Last 24 Hour Vital Signs Date Time Temp Pulse Resp B/P (MAP) Pulse Ox O2 Delivery O2 Flow Rate FiO2 03/09/20 16:00 98.4 72 20 128/81 (97) 95 03/09/20 15:39 73 03/09/20 11:41 60 03/09/20 11:28 98.2 75 20 142/61 (88) 95 03/09/20 09:45 67 142/63 03/09/20 08:02 71 03/09/20 08:00 97.9 67 20 142/63 (89) 95 03/09/20 04:00 97.9 80 20 160/78 (105) 95 03/09/20 04:00 77 03/09/20 00:00 98.3 72 18 133/72 (92) 97 03/09/20 00:00 71 03/08/20 21:14 78 03/08/20 20:54 80 129/71 03/08/20 20:18 Room Air 03/08/20 20:00 98.2 77 17 115/76 (89) 97 Intake and Output 03/08/20 03/09/20 19:00 07:00 Intake Total 720 ml 435 ml Balance 720 ml 435 ml Intake Oral 720 ml 360 ml IV Total 75 ml # Voids 4 5 Objective WDWN NAD reduced breath sounds bilaterally without rhonchi or wheeze [id number] without MRG NABS nontender no HSM no CC mild edema nonfocal confused reviewed and edited HEENT: mucous membranes moist Abdomen: soft, non tender Extremities: no edema Neurologic/Psychiatric: disoriented, other - sleeping Microbiology Date/Time Source Procedure Growth Status 03/07/20 11:53 Nasopharynx Coronavirus COVID-19 PCR ([facility]) - Final Complete Laboratory Tests 03/09/20 07:30: White Blood Count 10.0, Red Blood Count 4.43, Hemoglobin 11.8L, Hematocrit 35.7L , Mean Corpuscular Volume 81, Mean Corpuscular Hemoglobin 26.7L, Mean Corpuscular Hemoglobin Concent 33.2, Red Cell Distribution Width 13.0, Platelet Count 234, Mean Platelet Volume 7.5, Neutrophils (%) (Auto) 52.2, Lymphocytes (% ) (Auto) 32.6, Monocytes (%) (Auto) 11.0H, Eosinophils (%) (Auto) 3.4H, Basophils (%) (Auto) 0.8, Sodium Level 143, Potassium Level 3.7, Chloride Level 110H, Carbon Dioxide Level 22, Anion Gap 11, Blood Urea Nitrogen 11, Creatinine 0.8, Estimat Glomerular Filtration Rate > 60, Glucose Level 126#H, Calcium Level 8.9, Phosphorus Level 3.1, Magnesium Level 1.9 Current Medications Medications (Trade) Dose Ordered Sig/Roberto Route PRN Reason Start Time Stop Time Status Last Admin Dose Admin Acetaminophen (Tylenol) 650 mg Q4H PRN ORAL mild pain/fever 03/05/20 18:00 03/31/20 17:59 Al Hydroxide/Mg Hydroxide (Mylanta) 30 ml Q4H PRN ORAL Dyspepsia 03/05/20 18:00 03/31/20 17:59 Aripiprazole (Abilify) 5 mg DAILY ORAL 03/06/20 09:00 04/16/20 08:59 03/09/20 09:45 Ascorbic Acid (Vitamin C) 500 mg DAILY ORAL 03/06/20 09:00 04/01/20 08:59 03/09/20 09:46 Aspirin (Ecotrin) 81 mg DAILY ORAL 03/09/20 09:00 04/23/20 08:59 03/09/20 09:44 Atorvastatin Calcium (Lipitor) 20 mg BEDTIME ORAL 03/05/20 21:00 05/30/20 20:59 03/08/20 20:49 Dextrose (Dextrose 50%) 25 ml Q30M PRN IV Hypoglycemia 03/05/20 18:00 05/30/20 18:29 Dextrose (Dextrose 50%) 50 ml Q30M PRN IV Hypoglycemia 03/05/20 18:00 05/30/20 18:29 03/07/20 06:06 Docusate Sodium (Colace) 100 mg BIDPRN PRN ORAL Constipation 03/06/20 18:00 04/03/20 17:59 Heparin Sodium (Porcine) (Heparin 5000 units/ml) 5,000 units EVERY 12 HOURS SUBQ 03/05/20 21:00 04/19/20 08:59 03/09/20 09:44 Insulin Aspart (NovoLOG) BEFORE MEALS AND HS SUBQ 03/05/20 21:00 05/30/20 20:59 03/09/20 12:26 Insulin Detemir (Levemir) 10 units BEDTIME SUBQ 03/05/20 21:00 06/02/20 20:59 03/08/20 20:56 Levothyroxine Sodium (Synthroid) 150 mcg 0630 ORAL 03/06/20 06:30 04/01/20 06:29 03/09/20 06:08 Lorazepam (Ativan) 1 mg Q4HR PRN ORAL For Anxiety 03/06/20 20:45 03/13/20 20:44 03/07/20 17:35 Metoprolol Tartrate (Lopressor) 50 mg Q12HR ORAL 03/06/20 09:00 06/04/20 08:59 03/09/20 09:45 Mirtazapine (Remeron) 7.5 mg BEDTIME ORAL 03/05/20 21:00 05/30/20 20:59 03/08/20 20:49 Multivitamins (Multivitamins) 1 tab DAILY ORAL 03/06/20 09:00 04/01/20 08:59 03/09/20 09:45 Pantoprazole (Protonix) 40 mg Q12HR ORAL 03/06/20 21:00 04/05/20 20:59 03/09/20 09:46 Polyethylene Glycol (Miralax) 17 gm BEDTIME ORAL 03/05/20 21:00 04/03/20 20:59 03/08/20 20:49 Potassium Chloride 40 meq/ Sodium Chloride 1,020 ml @ 75 mls/hr [id number] IV 03/08/20 10:30 04/07/20 10:29 03/09/20 10:06 Russell Goyal MD Mar 09, 2020 16:41
--- NOTE | 2020-03-09 17:30 | Nephrology Progress Note ---
Assessment/Plan Problem List: (1) Hypernatremia (2) Dehydration (3) Pyelonephritis (4) Hyperglycemic crisis due to diabetes mellitus (5) Altered mental status (6) Infection due to ESBL-producing Klebsiella pneumoniae Plan iv adjusted continue hydration and antibiotics replace k Subjective Constitutional: Reports: weakness HEENT: Reports: no symptoms Genitourinary: Reports: no symptoms Neurologic/Psychiatric: Reports: no symptoms Objective Objective Last 24 Hour Vital Signs Date Time Temp Pulse Resp B/P (MAP) Pulse Ox O2 Delivery O2 Flow Rate FiO2 03/09/20 16:00 98.4 72 20 128/81 (97) 95 03/09/20 15:39 73 03/09/20 11:41 60 03/09/20 11:28 98.2 75 20 142/61 (88) 95 03/09/20 09:45 67 142/63 03/09/20 08:02 71 03/09/20 08:00 97.9 67 20 142/63 (89) 95 03/09/20 04:00 97.9 80 20 160/78 (105) 95 03/09/20 04:00 77 03/09/20 00:00 98.3 72 18 133/72 (92) 97 03/09/20 00:00 71 03/08/20 21:14 78 03/08/20 20:54 80 129/71 03/08/20 20:18 Room Air 03/08/20 20:00 98.2 77 17 115/76 (89) 97 Intake and Output 03/08/20 03/09/20 19:00 07:00 Intake Total 720 ml 435 ml Balance 720 ml 435 ml Intake Oral 720 ml 360 ml IV Total 75 ml # Voids 4 5 Laboratory Tests 03/09/20 07:30: White Blood Count 10.0, Red Blood Count 4.43, Hemoglobin 11.8L, Hematocrit 35.7L , Mean Corpuscular Volume 81, Mean Corpuscular Hemoglobin 26.7L, Mean Corpuscular Hemoglobin Concent 33.2, Red Cell Distribution Width 13.0, Platelet Count 234, Mean Platelet Volume 7.5, Neutrophils (%) (Auto) 52.2, Lymphocytes (% ) (Auto) 32.6, Monocytes (%) (Auto) 11.0H, Eosinophils (%) (Auto) 3.4H, Basophils (%) (Auto) 0.8, Sodium Level 143, Potassium Level 3.7, Chloride Level 110H, Carbon Dioxide Level 22, Anion Gap 11, Blood Urea Nitrogen 11, Creatinine 0.8, Estimat Glomerular Filtration Rate > 60, Glucose Level 126#H, Calcium Level 8.9, Phosphorus Level 3.1, Magnesium Level 1.9 Height (Feet): 5 Height (Inches): 7.00 Weight (Pounds): 118 General Appearance: no apparent distress, alert EENT: normal ENT inspection Neck: normal alignment Cardiovascular: regular rhythm Respiratory/Chest: lungs clear Abdomen: non tender Extremities: no edema 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
--- NOTE | 2020-03-09 19:22 | NUR ---
HAND-OFF: Report given to Merly DE LOS SANTOS. Endosred plan of care.
--- NOTE | 2020-03-09 19:34 | NUR ---
NURSE NOTES: Received report from MAGALI Brantley. Patient is awake on bed, alert and oriented x 1. Patient is on CCHO (Medium) diet, puree and nectar thick, crush medication. telemetry monitor is on shows Sinus rhythm and no chest pain nor complaints made at this time. Patient is on room air, no respiratory distress noted at the moment. IV site on left forearm g-22 fluid running of 1/2 NS + 10 meqs kcl @ 75cc/hour. On fall and aspiration precaution, bilateral wrist restraints are on, assessment every 2 hours. Safety measures are in placed. Bed in low and locked position, bed alarm is on, side rails up x 2. Call light and bedside table within reach, instructed to call for any assistance needed.
[2020-03-09 20:00] VITALS: BP 145/59
[2020-03-09] MEDS: Miralax 17gm pkt ORAL SCH (20:25)
[2020-03-09] MEDS: Atorvastatin 20mg tab ORAL SCH (20:26)
[2020-03-09] MEDS: Levemir Flexpen SUBQ SCH (20:42)
--- NOTE | 2020-03-09 21:30 | NUR ---
NURSE NOTES: Called Dr. Tinsley to inform the result of 2nd covid test. Awaiting for call back.
--- NOTE | 2020-03-09 22:04 | NUR ---
NURSE NOTES: Received a call from Dr. Tinsley and she ordered to discontinue Covid-19 precaution since patient has 2 negative results already.
[2020-03-10] VITALS: BP 139/72
[2020-03-10 04:00] VITALS: BP 121/66
[2020-03-10] MEDS: Potassium Chloride 40 MEQ in 1/2 NS 1000ml 1,000 ML IV SCH (05:08)
[2020-03-10] MEDS: NovoLOG Insulin Flexpen SUBQ SCH ×4 (06:30→20:35)
--- NOTE | 2020-03-10 07:32 | NUR ---
HAND-OFF: Report given to MAGALI Wilkerson. Patient is awake, still with bilateral soft wrist restraints. Plan of care endorsed.
[2020-03-10 08:00] VITALS: BP 135/61
[2020-03-10 08:02] LABS: BASOPHILS % (AUTO) 0.8 % (0.0-2.0); EOSINOPHILS % (AUTO) 3.2 % (0.0-3.0); HEMATOCRIT 37.2 % (37.0-47.0); HEMOGLOBIN 12.5 G/DL (12.0-16.0); LYMPHOCYTES % (AUTO) 26.9 % (20.0-45.0); MEAN CORPUSCULAR VOLUME 80 FL (80-99); MONOCYTES % (AUTO) 9.7 % (1.0-10.0); NEUTROPHILS % (AUTO) 59.4 % (45.0-75.0); PLATELET COUNT 240 K/UL (150-450); RED BLOOD COUNT 4.65 M/UL (4.20-5.40); RED CELL DISTRIBUTION WIDTH 13.2 % (11.6-14.8); WHITE BLOOD COUNT 10.2 K/UL (4.8-10.8)
--- NOTE | 2020-03-10 08:21 | NUR ---
NURSE NOTES: Received report form Kathy Baeza RN. Patient laying in supine position, HOB at 30 degrees, awake and alert, on room air, respirations at 16 bpm, bilateral soft wrists restraints in place, side rails up x 3, bed in lowest position, call light within reach, Purewick in place, IV fluids with Kcl running into left forearm 22 gauge at 75 cc/hour. No c/o pain, no SOB, in no apparent distress.
--- NOTE | 2020-03-10 08:47 | General Progress Note ---
Assessment/Plan Problem List: (1) Pyelonephritis ICD Codes: N12 - Tubulo-interstitial nephritis, not specified as acute or chronic SNOMED: 84826352, 76680391 (2) Renal failure ICD Codes: N19 - Unspecified kidney failure SNOMED: 76120387, 90682877 (3) Coffee ground emesis ICD Codes: K92.0 - Hematemesis SNOMED: 33491687, 02903225 (4) Hyperglycemic crisis due to diabetes mellitus ICD Codes: E11.65 - Type 2 diabetes mellitus with hyperglycemia SNOMED: 260164164, 72827367 (5) Altered mental status ICD Codes: R41.82 - Altered mental status, unspecified SNOMED: 612169842 (6) Afib ICD Codes: I48.91 - Unspecified atrial fibrillation SNOMED: 72668169 Status: stable, progressing, unchanged Assessment/Plan: monitor off abx follow up pending labs Insulin sliding scale. Monitor Accu-Cheks. encourage po. asp precautions DVT and stress ulcer prophylaxis Turn every 2 hours dc planning Subjective ROS Limited/Unobtainable: No Constitutional: Reports: malaise, weakness HEENT: Reports: no symptoms Cardiovascular: Reports: no symptoms Respiratory: Reports: no symptoms Gastrointestinal/Abdominal: Reports: no symptoms Genitourinary: Reports: no symptoms Neurologic/Psychiatric: Reports: pre-existing deficit Endocrine: Reports: no symptoms Hematologic/Lymphatic: Reports: no symptoms Allergies: Coded Allergies: No Known Allergies (Unverified , 03/01/20) All Systems: reviewed and negative except above Subjective no new events. no fever or chills. no cough. on abx. eating well. alert. follows commands but confused. covid neg. completed abx for uti Objective Last 24 Hour Vital Signs Date Time Temp Pulse Resp B/P (MAP) Pulse Ox O2 Delivery O2 Flow Rate FiO2 03/10/20 04:00 97.7 59 19 121/66 (84) 96 03/10/20 04:00 59 03/10/20 00:00 97.5 66 18 139/72 (94) 97 03/10/20 00:00 66 03/09/20 21:00 Room Air 03/09/20 20:26 72 138/81 03/09/20 20:00 98.8 70 20 145/59 (87) 95 03/09/20 19:33 71 03/09/20 16:00 98.4 72 20 128/81 (97) 95 03/09/20 15:39 73 03/09/20 11:41 60 03/09/20 11:28 98.2 75 20 142/61 (88) 95 03/09/20 09:45 67 142/63 Intake and Output 03/09/20 03/10/20 19:00 07:00 Intake Total 840 ml 525 ml Output Total 400 ml Balance 440 ml 525 ml Intake Oral 840 ml IV Total 525 ml Output Urine Total 400 ml # Voids 1 2 Laboratory Tests 03/10/20 07:30: White Blood Count 10.2, Red Blood Count 4.65, Hemoglobin 12.5, Hematocrit 37.2, Mean Corpuscular Volume 80, Mean Corpuscular Hemoglobin 26.9L, Mean Corpuscular Hemoglobin Concent 33.7, Red Cell Distribution Width 13.2, Platelet Count 240, Mean Platelet Volume 7.6, Neutrophils (%) (Auto) 59.4, Lymphocytes (%) (Auto) 26.9, Monocytes (%) (Auto) 9.7, Eosinophils (%) (Auto) 3.2H, Basophils (%) (Auto ) 0.8, Sodium Level [Pending], Potassium Level [Pending], Chloride Level [ Pending], Carbon Dioxide Level [Pending], Blood Urea Nitrogen [Pending], Creatinine [Pending], Estimat Glomerular Filtration Rate [Pending], Glucose Level [Pending], Calcium Level [Pending] Height (Feet): 5 Height (Inches): 7.00 Weight (Pounds): 118 Objective General Appearance: WD/WN, alert, less confused. 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
[2020-03-10 08:51] LABS: ANION GAP 9 mmol/L (5-15); BLOOD UREA NITROGEN 7 mg/dL (7-18); CALCIUM 8.8 MG/DL (8.5-10.1); CARBON DIOXIDE 24 MMOL/L (21-32); CHLORIDE 108 MMOL/L (98-107); CREATININE 0.8 MG/DL (0.55-1.30); POTASSIUM 3.9 MMOL/L (3.5-5.1); SODIUM 141 MMOL/L (136-145)
--- NOTE | 2020-03-10 09:57 | Pulmonology Progress Note ---
Assessment/Plan Assessment/Plan 1. Diabetes out of control. 2. Hyperosmotic nonketotic state. 3. Lactic acidemia. 4. Metabolic acidosis. 5. Leukocytosis. 6. Possible sepsis. 7. Hemoconcentration. 8. COPD per history. No significant respiratory distress at this time. 9. History of CAD. Chest x-ray is negative. PLAN overall improved off antibiotics close followup respiratory status stable monitor oxygen needs follow up for change and recommend dc planning to snf when bed available impression, plan, and exam edited and reviewed in detail care discussed with RN Subjective ROS Limited/Unobtainable: No Constitutional: Denies: fever, chills Gastrointestinal/Abdominal: Denies: nausea, vomiting, diarrhea Musculoskeletal: Denies: pain Allergies: Coded Allergies: No Known Allergies (Unverified , 03/01/20) All Systems: reviewed and negative except above Subjective care noted remains confused d/w nursing no distress COVID negative Objective Last 24 Hour Vital Signs Date Time Temp Pulse Resp B/P (MAP) Pulse Ox O2 Delivery O2 Flow Rate FiO2 03/10/20 08:00 96.3 65 18 135/61 (85) 97 03/10/20 04:00 97.7 59 19 121/66 (84) 96 03/10/20 04:00 59 03/10/20 00:00 97.5 66 18 139/72 (94) 97 03/10/20 00:00 66 03/09/20 21:00 Room Air 03/09/20 20:26 72 138/81 03/09/20 20:00 98.8 70 20 145/59 (87) 95 03/09/20 19:33 71 03/09/20 16:00 98.4 72 20 128/81 (97) 95 03/09/20 15:39 73 03/09/20 11:41 60 03/09/20 11:28 98.2 75 20 142/61 (88) 95 Intake and Output 03/09/20 03/10/20 19:00 07:00 Intake Total 840 ml 525 ml Output Total 400 ml Balance 440 ml 525 ml Intake Oral 840 ml IV Total 525 ml Output Urine Total 400 ml # Voids 1 2 Objective WDWN NAD reduced breath sounds bilaterally without rhonchi or wheeze [id number] without MRG NABS nontender no HSM no CC mild edema nonfocal confused reviewed and edited HEENT: mucous membranes moist Abdomen: soft, non tender Extremities: no edema Neurologic/Psychiatric: disoriented, other - sleeping Microbiology Date/Time Source Procedure Growth Status 03/07/20 11:53 Nasopharynx Coronavirus COVID-19 PCR ([facility]) - Final Complete Laboratory Tests 03/10/20 07:30: White Blood Count 10.2, Red Blood Count 4.65, Hemoglobin 12.5, Hematocrit 37.2, Mean Corpuscular Volume 80, Mean Corpuscular Hemoglobin 26.9L, Mean Corpuscular Hemoglobin Concent 33.7, Red Cell Distribution Width 13.2, Platelet Count 240, Mean Platelet Volume 7.6, Neutrophils (%) (Auto) 59.4, Lymphocytes (%) (Auto) 26.9, Monocytes (%) (Auto) 9.7, Eosinophils (%) (Auto) 3.2H, Basophils (%) (Auto ) 0.8, Sodium Level 141, Potassium Level 3.9, Chloride Level 108H, Carbon Dioxide Level 24, Anion Gap 9, Blood Urea Nitrogen 7, Creatinine 0.8, Estimat Glomerular Filtration Rate > 60, Glucose Level 164H, Calcium Level 8.8 Current Medications Medications (Trade) Dose Ordered Sig/Roberto Route PRN Reason Start Time Stop Time Status Last Admin Dose Admin Acetaminophen (Tylenol) 650 mg Q4H PRN ORAL mild pain/fever 03/05/20 18:00 03/31/20 17:59 Al Hydroxide/Mg Hydroxide (Mylanta) 30 ml Q4H PRN ORAL Dyspepsia 03/05/20 18:00 03/31/20 17:59 Aripiprazole (Abilify) 5 mg DAILY ORAL 03/06/20 09:00 04/16/20 08:59 03/09/20 09:45 Ascorbic Acid (Vitamin C) 500 mg DAILY ORAL 03/06/20 09:00 04/01/20 08:59 03/09/20 09:46 Aspirin (Ecotrin) 81 mg DAILY ORAL 03/09/20 09:00 04/23/20 08:59 03/09/20 09:44 Atorvastatin Calcium (Lipitor) 20 mg BEDTIME ORAL 03/05/20 21:00 05/30/20 20:59 03/09/20 20:26 Dextrose (Dextrose 50%) 25 ml Q30M PRN IV Hypoglycemia 03/05/20 18:00 05/30/20 18:29 Dextrose (Dextrose 50%) 50 ml Q30M PRN IV Hypoglycemia 03/05/20 18:00 05/30/20 18:29 03/07/20 06:06 Docusate Sodium (Colace) 100 mg BIDPRN PRN ORAL Constipation 03/06/20 18:00 04/03/20 17:59 Heparin Sodium (Porcine) (Heparin 5000 units/ml) 5,000 units EVERY 12 HOURS SUBQ 03/05/20 21:00 04/19/20 08:59 03/09/20 20:25 Insulin Aspart (NovoLOG) BEFORE MEALS AND HS SUBQ 03/05/20 21:00 05/30/20 20:59 03/09/20 20:44 Insulin Detemir (Levemir) 10 units BEDTIME SUBQ 03/05/20 21:00 06/02/20 20:59 03/09/20 20:42 Levothyroxine Sodium (Synthroid) 150 mcg 0630 ORAL 03/06/20 06:30 04/01/20 06:29 03/10/20 06:44 Lorazepam (Ativan) 1 mg Q4HR PRN ORAL For Anxiety 03/06/20 20:45 03/13/20 20:44 03/07/20 17:35 Metoprolol Tartrate (Lopressor) 50 mg Q12HR ORAL 03/06/20 09:00 06/04/20 08:59 03/09/20 20:26 Mirtazapine (Remeron) 7.5 mg BEDTIME ORAL 03/05/20 21:00 05/30/20 20:59 03/09/20 20:26 Multivitamins (Multivitamins) 1 tab DAILY ORAL 03/06/20 09:00 04/01/20 08:59 03/09/20 09:45 Pantoprazole (Protonix) 40 mg Q12HR ORAL 03/06/20 21:00 04/05/20 20:59 03/09/20 20:25 Polyethylene Glycol (Miralax) 17 gm BEDTIME ORAL 03/05/20 21:00 04/03/20 20:59 03/09/20 20:25 Potassium Chloride 40 meq/ Sodium Chloride 1,020 ml @ 75 mls/hr [id number] IV 03/08/20 10:30 04/07/20 10:29 03/10/20 05:08 Russell Goyal MD Mar 10, 2020 09:57
[2020-03-10] MEDS: Heparin 5000 units/ml inj SUBQ SCH ×2 (10:30→20:32)
[2020-03-10] MEDS: Metoprolol Tartrate 50mg tab ORAL SCH ×2 (10:31→20:32)
[2020-03-10] MEDS: Aspirin EC 81mg tab ORAL SCH (10:31)
[2020-03-10] MEDS: Ascorbic Acid 500mg tab ORAL SCH (10:31)
--- NOTE | 2020-03-10 11:05 | GI Progress Note ---
Assessment/Plan Problems: (1) Altered mental status ICD Codes: R41.82 - Altered mental status, unspecified SNOMED: 279093123 (2) Coffee ground emesis ICD Codes: K92.0 - Hematemesis SNOMED: 28753053, 33094782 (3) Dehydration ICD Codes: E86.0 - Dehydration SNOMED: 07932397 (4) Hypernatremia ICD Codes: E87.0 - Hyperosmolality and hypernatremia SNOMED: 500118841 Status: unchanged Status Narrative Discussed with Dr. Hoover. Assessment/Plan 1. History of diabetes. 2. Hypertension. 3. Coronary artery disease and myocardial infarction. 4. COPD. 5. GERD. 6. CVA. 7. Dementia. 8. Psychiatric disorder including schizophrenia 9. Coffee ground emesis stable H&H ppi fu labs push po's neg stool ob bowel regimen GI procedures on hold given stable H&H and neg stool ob The patient was seen and examined at bedside and all new and available data was reviewed in the patients chart. I agree with the above findings, impression and plan. (Patient seen earlier today. Signature stamp does not reflect patient encounter time.). - Pollo Hoover MD Subjective Subjective limited Objective Last 24 Hour Vital Signs Date Time Temp Pulse Resp B/P (MAP) Pulse Ox O2 Delivery O2 Flow Rate FiO2 03/10/20 10:31 65 135/61 03/10/20 08:00 96.3 65 18 135/61 (85) 97 03/10/20 04:00 97.7 59 19 121/66 (84) 96 03/10/20 04:00 59 03/10/20 00:00 97.5 66 18 139/72 (94) 97 03/10/20 00:00 66 03/09/20 21:00 Room Air 03/09/20 20:26 72 138/81 03/09/20 20:00 98.8 70 20 145/59 (87) 95 03/09/20 19:33 71 03/09/20 16:00 98.4 72 20 128/81 (97) 95 03/09/20 15:39 73 03/09/20 11:41 60 03/09/20 11:28 98.2 75 20 142/61 (88) 95 Intake and Output 03/09/20 03/10/20 19:00 07:00 Intake Total 840 ml 525 ml Output Total 400 ml Balance 440 ml 525 ml Intake Oral 840 ml IV Total 525 ml Output Urine Total 400 ml # Voids 1 2 Laboratory Tests Test 03/10/20 07:30 White Blood Count 10.2 K/UL (4.8-10.8) Red Blood Count 4.65 M/UL (4.20-5.40) Hemoglobin 12.5 G/DL (12.0-16.0) Hematocrit 37.2 % (37.0-47.0) Mean Corpuscular Volume 80 FL (80-99) Mean Corpuscular Hemoglobin 26.9 PG (27.0-31.0) L Mean Corpuscular Hemoglobin Concent 33.7 G/DL (32.0-36.0) Red Cell Distribution Width 13.2 % (11.6-14.8) Platelet Count 240 K/UL (150-450) Mean Platelet Volume 7.6 FL (6.5-10.1) Neutrophils (%) (Auto) 59.4 % (45.0-75.0) Lymphocytes (%) (Auto) 26.9 % (20.0-45.0) Monocytes (%) (Auto) 9.7 % (1.0-10.0) Eosinophils (%) (Auto) 3.2 % (0.0-3.0) H Basophils (%) (Auto) 0.8 % (0.0-2.0) Sodium Level 141 MMOL/L (136-145) Potassium Level 3.9 MMOL/L (3.5-5.1) Chloride Level 108 MMOL/L (98-107) H Carbon Dioxide Level 24 MMOL/L (21-32) Anion Gap 9 mmol/L (5-15) Blood Urea Nitrogen 7 mg/dL (7-18) Creatinine 0.8 MG/DL (0.55-1.30) Estimat Glomerular Filtration Rate > 60 mL/min (>60) Glucose Level 164 MG/DL (74-106) H Calcium Level 8.8 MG/DL (8.5-10.1) Height (Feet): 5 Height (Inches): 7.00 Weight (Pounds): 118 General Appearance: WD/WN, no apparent distress, alert Cardiovascular: normal rate Respiratory/Chest: normal breath sounds, no respiratory distress Abdominal Exam: normal bowel sounds, non tender, soft Extremities: normal range of motion, non-tender Henrique Crawford NP Mar 10, 2020 11:05
[2020-03-10 12:00] VITALS: BP 140/49
--- NOTE | 2020-03-10 12:39 | Infectious Diseases Prog Note ---
Assessment/Plan Assessment/Plan A; 1. Klebsiella urinary tract infection treateds 2. Diabetes with hyperglycemia 3. Hypertension. 4. Negative COVID19 test 5. COPD. 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 Observe off antibiotic Subjective ROS Limited/Unobtainable: Yes Constitutional: Reports: no symptoms Respiratory: Reports: no symptoms Cardiovascular: Reports: no symptoms Gastrointestinal/Abdominal: Reports: no symptoms Psychiatric: Reports: other - on restraint Allergies: Coded Allergies: No Known Allergies (Unverified , 03/01/20) Objective Vital Signs Last 24 Hour Vital Signs Date Time Temp Pulse Resp B/P (MAP) Pulse Ox O2 Delivery O2 Flow Rate FiO2 03/10/20 10:31 65 135/61 03/10/20 08:00 96.3 65 18 135/61 (85) 97 03/10/20 04:00 97.7 59 19 121/66 (84) 96 03/10/20 04:00 59 03/10/20 00:00 97.5 66 18 139/72 (94) 97 03/10/20 00:00 66 03/09/20 21:00 Room Air 03/09/20 20:26 72 138/81 03/09/20 20:00 98.8 70 20 145/59 (87) 95 03/09/20 19:33 71 03/09/20 16:00 98.4 72 20 128/81 (97) 95 03/09/20 15:39 73 Height (Feet): 5 Height (Inches): 7.00 Weight (Pounds): 118 HEENT: mucous membranes moist Respiratory/Chest: lungs clear Cardiovascular: normal rate Abdomen: soft, non tender Extremities: no edema Neurologic/Psychiatric: alert, responsive Laboratory Tests Test 03/10/20 07:30 White Blood Count 10.2 K/UL (4.8-10.8) Red Blood Count 4.65 M/UL (4.20-5.40) Hemoglobin 12.5 G/DL (12.0-16.0) Hematocrit 37.2 % (37.0-47.0) Mean Corpuscular Volume 80 FL (80-99) Mean Corpuscular Hemoglobin 26.9 PG (27.0-31.0) L Mean Corpuscular Hemoglobin Concent 33.7 G/DL (32.0-36.0) Red Cell Distribution Width 13.2 % (11.6-14.8) Platelet Count 240 K/UL (150-450) Mean Platelet Volume 7.6 FL (6.5-10.1) Neutrophils (%) (Auto) 59.4 % (45.0-75.0) Lymphocytes (%) (Auto) 26.9 % (20.0-45.0) Monocytes (%) (Auto) 9.7 % (1.0-10.0) Eosinophils (%) (Auto) 3.2 % (0.0-3.0) H Basophils (%) (Auto) 0.8 % (0.0-2.0) Sodium Level 141 MMOL/L (136-145) Potassium Level 3.9 MMOL/L (3.5-5.1) Chloride Level 108 MMOL/L (98-107) H Carbon Dioxide Level 24 MMOL/L (21-32) Anion Gap 9 mmol/L (5-15) Blood Urea Nitrogen 7 mg/dL (7-18) Creatinine 0.8 MG/DL (0.55-1.30) Estimat Glomerular Filtration Rate > 60 mL/min (>60) Glucose Level 164 MG/DL (74-106) H Calcium Level 8.8 MG/DL (8.5-10.1) Current Medications Medications (Trade) Dose Ordered Sig/Roberto Route PRN Reason Start Time Stop Time Status Last Admin Dose Admin Acetaminophen (Tylenol) 650 mg Q4H PRN ORAL mild pain/fever 03/05/20 18:00 03/31/20 17:59 Al Hydroxide/Mg Hydroxide (Mylanta) 30 ml Q4H PRN ORAL Dyspepsia 03/05/20 18:00 03/31/20 17:59 Aripiprazole (Abilify) 5 mg DAILY ORAL 03/06/20 09:00 04/16/20 08:59 03/10/20 10:31 Ascorbic Acid (Vitamin C) 500 mg DAILY ORAL 03/06/20 09:00 04/01/20 08:59 03/10/20 10:31 Aspirin (Ecotrin) 81 mg DAILY ORAL 03/09/20 09:00 04/23/20 08:59 03/10/20 10:31 Atorvastatin Calcium (Lipitor) 20 mg BEDTIME ORAL 03/05/20 21:00 05/30/20 20:59 03/09/20 20:26 Dextrose (Dextrose 50%) 25 ml Q30M PRN IV Hypoglycemia 03/05/20 18:00 05/30/20 18:29 Dextrose (Dextrose 50%) 50 ml Q30M PRN IV Hypoglycemia 03/05/20 18:00 05/30/20 18:29 03/07/20 06:06 Docusate Sodium (Colace) 100 mg BIDPRN PRN ORAL Constipation 03/06/20 18:00 04/03/20 17:59 Heparin Sodium (Porcine) (Heparin 5000 units/ml) 5,000 units EVERY 12 HOURS SUBQ 03/05/20 21:00 04/19/20 08:59 03/10/20 10:30 Insulin Aspart (NovoLOG) BEFORE MEALS AND HS SUBQ 03/05/20 21:00 05/30/20 20:59 03/09/20 20:44 Insulin Detemir (Levemir) 10 units BEDTIME SUBQ 03/05/20 21:00 06/02/20 20:59 03/09/20 20:42 Levothyroxine Sodium (Synthroid) 150 mcg 0630 ORAL 03/06/20 06:30 04/01/20 06:29 03/10/20 06:44 Lorazepam (Ativan) 1 mg Q4HR PRN ORAL For Anxiety 03/06/20 20:45 03/13/20 20:44 03/07/20 17:35 Metoprolol Tartrate (Lopressor) 50 mg Q12HR ORAL 03/06/20 09:00 06/04/20 08:59 03/10/20 10:31 Mirtazapine (Remeron) 7.5 mg BEDTIME ORAL 03/05/20 21:00 05/30/20 20:59 03/09/20 20:26 Multivitamins (Multivitamins) 1 tab DAILY ORAL 03/06/20 09:00 04/01/20 08:59 03/10/20 10:30 Pantoprazole (Protonix) 40 mg Q12HR ORAL 03/06/20 21:00 04/05/20 20:59 03/10/20 10:31 Polyethylene Glycol (Miralax) 17 gm BEDTIME ORAL 03/05/20 21:00 04/03/20 20:59 03/09/20 20:25 Potassium Chloride 40 meq/ Sodium Chloride 1,020 ml @ 75 mls/hr [id number] IV 03/08/20 10:30 04/07/20 10:29 03/10/20 05:08 Kenny Alejandro MD Mar 10, 2020 12:39
--- NOTE | 2020-03-10 15:06 | Nephrology Progress Note ---
Assessment/Plan Problem List: (1) Hypernatremia (2) Dehydration (3) Pyelonephritis (4) Hyperglycemic crisis due to diabetes mellitus (5) Altered mental status (6) Infection due to ESBL-producing Klebsiella pneumoniae Plan ivstopped and antibiotics replace k done, hydration adequate monitor glu Subjective Constitutional: Reports: weakness HEENT: Reports: no symptoms Genitourinary: Reports: no symptoms Neurologic/Psychiatric: Reports: no symptoms Objective Objective Last 24 Hour Vital Signs Date Time Temp Pulse Resp B/P (MAP) Pulse Ox O2 Delivery O2 Flow Rate FiO2 03/10/20 12:00 61 03/10/20 12:00 97.3 62 18 140/49 (79) 96 03/10/20 10:31 65 135/61 03/10/20 09:00 Room Air 03/10/20 08:00 96.3 65 18 135/61 (85) 97 03/10/20 04:00 97.7 59 19 121/66 (84) 96 03/10/20 04:00 59 03/10/20 00:00 97.5 66 18 139/72 (94) 97 03/10/20 00:00 66 03/09/20 21:00 Room Air 03/09/20 20:26 72 138/81 03/09/20 20:00 98.8 70 20 145/59 (87) 95 03/09/20 19:33 71 03/09/20 16:00 98.4 72 20 128/81 (97) 95 03/09/20 15:39 73 Intake and Output 03/09/20 03/10/20 19:00 07:00 Intake Total 840 ml 525 ml Output Total 400 ml Balance 440 ml 525 ml Intake Oral 840 ml IV Total 525 ml Output Urine Total 400 ml # Voids 1 2 Laboratory Tests 03/10/20 07:30: White Blood Count 10.2, Red Blood Count 4.65, Hemoglobin 12.5, Hematocrit 37.2, Mean Corpuscular Volume 80, Mean Corpuscular Hemoglobin 26.9L, Mean Corpuscular Hemoglobin Concent 33.7, Red Cell Distribution Width 13.2, Platelet Count 240, Mean Platelet Volume 7.6, Neutrophils (%) (Auto) 59.4, Lymphocytes (%) (Auto) 26.9, Monocytes (%) (Auto) 9.7, Eosinophils (%) (Auto) 3.2H, Basophils (%) (Auto ) 0.8, Sodium Level 141, Potassium Level 3.9, Chloride Level 108H, Carbon Dioxide Level 24, Anion Gap 9, Blood Urea Nitrogen 7, Creatinine 0.8, Estimat Glomerular Filtration Rate > 60, Glucose Level 164H, Calcium Level 8.8 Height (Feet): 5 Height (Inches): 7.00 Weight (Pounds): 118 General Appearance: alert EENT: normal ENT inspection Neck: normal alignment Cardiovascular: normal rate, regular rhythm Respiratory/Chest: lungs clear Abdomen: non tender Extremities: no edema Neurologic: disoriented Jose Martin Estevez MD Mar 10, 2020 15:06
[2020-03-10 16:00] VITALS: BP 131/72
--- NOTE | 2020-03-10 19:45 | NUR ---
NURSE NOTES: Received report from MAGALI Wilkerson. Patient is awake on bed, alert and oriented x 1. Patient is on CCHO (Medium) diet, puree, nectar thick, crush medications, instructed and amenable. quality assurance monitor chassis is on shows Sinus rhythm and no chest pain nor complaints made at this time. Patient is on room air, no respiratory distress noted at the moment. IV site on left forearm g-24 saline lock that is intact, patent and asymptomatic. Patient is bedbound, with bilateral wrist restraints on, assessment done every 2 hours. Safety measures are in placed. Bed in low and locked position, bed alarm is on, side rails up x 2. Call light and bedside table within reach, instructed to call for any assistance needed.
--- NOTE | 2020-03-10 19:54 | NUR ---
HAND-OFF: Report given to Kathy Baeza RN. Patient in semi-Foss's position, awake and alert to name and place, watching television, IV patent in left forearm 24 gauge, saline locked, bed in lowest position, call light within reach, no SOB, no c/o pain, on room air, in no apaprent distress, bilateral wrist restraints in place, Purewick in place.
[2020-03-10 20:00] VITALS: BP 115/53
[2020-03-10] MEDS: Miralax 17gm pkt ORAL SCH (20:32)
[2020-03-10] MEDS: Atorvastatin 20mg tab ORAL SCH (20:32)
[2020-03-10] MEDS: Levemir Flexpen SUBQ SCH (20:34)
[2020-03-11] VITALS: BP 128/70
[2020-03-11] MEDS ORDERED: Lisinopril 20mg tab ORAL SCH (02:15)
--- NOTE | 2020-03-11 03:44 | Progress Note ---
DATE: 03/10/2020 CARDIOLOGY PROGRESS NOTE SUBJECTIVE: The patient has improved appetite. No shortness of breath or chest pain. Still confused. COVID swabs are negative. OBJECTIVE: VITAL SIGNS: Blood pressure 133/72 to 160/78, heart rate 70 to 80, respiratory rate 18 to 20, afebrile. LUNGS: Clear. CARDIAC: Regular. Normal S1 and S2 with a fourth heart sound. ABDOMEN: Soft. EXTREMITIES: No edema. Monitor sinus with atrial ectopy. LABORATORY DATA: Phosphorus 3.1, magnesium 1.9, and potassium 3.7. Sodium 143, bicarb 22, BUN 11, and creatinine 0.8. White count 10 and hemoglobin 11.8. IMPRESSION: 1. Resolved lactic acidosis and hyperosmolar nonketotic coma. 2. Hypertensive heart disease with slight elevation of blood pressure range. 3. Stable angina with underlying ischemic heart disease. 4. Paroxysmal atrial fibrillation, now resolved. PLAN: 1. Maintain adequate hydration by oral route. 2. Discontinue IV fluids. 3. Continue anti-platelet and anti-lipid therapy. 4. Titrate insulin. 5. Maintain beta-blockade. 6. We will add angiotensin-converting enzyme inhibitor for renal protective effects. Rory Dickson M.D. DR: TRUNG JOB#: [id number] CC:
--- NOTE | 2020-03-11 03:59 | Progress Note ---
DATE: 03/10/2020 CARDIOLOGY PROGRESS NOTE SUBJECTIVE: No new complaints. Maintaining better oral intake. OBJECTIVE: VITAL SIGNS: Stable. Blood pressure controlled adequate. Monitored sinus rhythm. OBJECTIVE: LUNGS: Clear. CARDIAC: Regular. Normal S1 and S2 with a fourth heart sound. ABDOMEN: Soft. EXTREMITIES: No edema. LABORATORY DATA: White count 10 and hemoglobin 12. Potassium 3.9, BUN 7, and creatinine 0.8. IMPRESSION: 1. Significantly improved. No recurring atrial fibrillation. 2. Controlled blood pressure. 3. Resolving encephalopathy and resolved hyperosmolar nonketotic coma. PLAN: 1. Add angiotensin-converting enzyme inhibitor. 2. Discontinue telemetry. Rory Dickson M.D. DR: TRUNG JOB#: [id number] CC:
[2020-03-11 04:00] VITALS: BP 132/63
--- NOTE | 2020-03-11 05:54 | NUR ---
TRANSFER TO FLOOR: Patient transferred to [facility], per bed. Report given to MAGALI Reese. Belongings and medications given tO rn. Family and or S/O informed of transfer. Patient is in stable condition, there's no complaints made at this time. Plan of care endorsed.
[2020-03-11] MEDS ORDERED: LORazepam 1mg tab ORAL PRN (06:00)
[2020-03-11] MEDS ORDERED: Docusate 100mg cap ORAL PRN (06:00)
--- NOTE | 2020-03-11 06:15 | NUR ---
NURSE NOTES: Received report, no pink shirt noted. Respiration is even and unlabored. No pain noted. IV site noted. Restraint noted. Patient refuses skin check. Patient started kicking and refuses lower extremity check. Refused blood draw. Bed in low and locked position. Provided safe environment. Call light is at bedside. Will continue plan of care.
[2020-03-11] MEDS ORDERED: NovoLOG Insulin Flexpen SUBQ SCH (06:30)
--- NOTE | 2020-03-11 07:27 | NUR ---
HAND-OFF: Report given to Garry Beverly.
[2020-03-11 08:00] VITALS: BP 138/74
--- NOTE | 2020-03-11 08:00 | NUR ---
NURSE NOTES: Report from Hugh DE LOS SANTOS, pt a/a/o laying in bed with no signs of distress or other issues at this time. IV on the left FA gauge #24 heplock. bilateral soft wrist restrains. pt is able to fallow commands. per report pt has a left ankle DTI with optifoam dressing. ros light within reach, bed in lowest position, side rales up x3, I will f/u as needed.
--- NOTE | 2020-03-11 08:56 | General Progress Note ---
Assessment/Plan Status: unchanged Assessment/Plan: 1. History of diabetes. 2. Hypertension. 3. Coronary artery disease and myocardial infarction. 4. COPD. 5. GERD. 6. CVA. 7. Dementia. 8. Psychiatric disorder including schizophrenia 9. Coffee ground emesis stable H&H ppi fu labs push po's neg stool ob bowel regimen GI procedures on hold given stable H&H and neg stool ob Subjective ROS Limited/Unobtainable: No Allergies: Coded Allergies: No Known Allergies (Unverified , 03/01/20) Objective Last 24 Hour Vital Signs Date Time Temp Pulse Resp B/P (MAP) Pulse Ox O2 Delivery O2 Flow Rate FiO2 03/11/20 08:47 87 138/74 03/11/20 08:00 101.6 87 19 138/74 (95) 97 03/11/20 04:00 97.8 60 18 132/63 (86) 95 03/11/20 04:00 59 03/11/20 02:27 128/70 03/11/20 00:00 97.7 64 18 128/70 (89) 94 03/11/20 00:00 60 03/10/20 21:00 Room Air 03/10/20 20:32 62 131/72 03/10/20 20:00 97.7 66 18 115/53 (73) 93 03/10/20 20:00 63 03/10/20 16:00 96.8 64 18 131/72 (91) 94 03/10/20 16:00 62 03/10/20 12:00 61 03/10/20 12:00 97.3 62 18 140/49 (79) 96 03/10/20 10:31 65 135/61 03/10/20 09:00 Room Air Intake and Output 03/10/20 03/11/20 19:00 07:00 Intake Total 1320 ml 250 ml Balance 1320 ml 250 ml Intake Oral 720 ml 250 ml IV Total 600 ml # Voids 4 1 # Bowel Movements 1 Height (Feet): 5 Height (Inches): 7.00 Weight (Pounds): 118 General Appearance: no apparent distress EENT: normal ENT inspection Neck: normal alignment Cardiovascular: normal rate Respiratory/Chest: decreased breath sounds Abdomen: normal bowel sounds, non tender, soft Extremities: non-tender Pollo Hoover MD Mar 11, 2020 08:56
[2020-03-11] MEDS ORDERED: Aspirin EC 81mg tab ORAL SCH (09:00)
[2020-03-11] MEDS ORDERED: Ascorbic Acid 500mg tab ORAL SCH (09:00)
[2020-03-11] MEDS ORDERED: Metoprolol Tartrate 50mg tab ORAL SCH (09:00)
[2020-03-11] MEDS ORDERED: Heparin 5000 units/ml inj SUBQ SCH (09:00)
--- NOTE | 2020-03-11 09:28 | General Progress Note ---
Assessment/Plan Problem List: (1) Pyelonephritis ICD Codes: N12 - Tubulo-interstitial nephritis, not specified as acute or chronic SNOMED: 04150073, 98034949 (2) Renal failure ICD Codes: N19 - Unspecified kidney failure SNOMED: 34690781, 14560877 (3) Coffee ground emesis ICD Codes: K92.0 - Hematemesis SNOMED: 18154097, 02962061 (4) Hyperglycemic crisis due to diabetes mellitus ICD Codes: E11.65 - Type 2 diabetes mellitus with hyperglycemia SNOMED: 971795433, 51592986 (5) Altered mental status ICD Codes: R41.82 - Altered mental status, unspecified SNOMED: 307939763 (6) Afib ICD Codes: I48.91 - Unspecified atrial fibrillation SNOMED: 27631318 Status: unchanged Assessment/Plan: monitor off abx monitor for fever may have to reculture if fever persists tylenol prn Insulin sliding scale. Monitor Accu-Cheks. encourage po. asp precautions DVT and stress ulcer prophylaxis Turn every 2 hours dc planning Subjective ROS Limited/Unobtainable: No Constitutional: Reports: fever, malaise, weakness HEENT: Reports: no symptoms Cardiovascular: Reports: no symptoms Respiratory: Reports: no symptoms Gastrointestinal/Abdominal: Reports: no symptoms Genitourinary: Reports: no symptoms Neurologic/Psychiatric: Reports: no symptoms Endocrine: Reports: no symptoms Hematologic/Lymphatic: Reports: no symptoms Allergies: Coded Allergies: No Known Allergies (Unverified , 03/01/20) All Systems: reviewed and negative except above Subjective no new events. +fever this am. no cough. on abx. eating well. alert. follows commands but confused. covid neg. completed abx for uti Objective Last 24 Hour Vital Signs Date Time Temp Pulse Resp B/P (MAP) Pulse Ox O2 Delivery O2 Flow Rate FiO2 03/11/20 08:47 87 138/74 03/11/20 08:00 101.6 87 19 138/74 (95) 97 03/11/20 04:00 97.8 60 18 132/63 (86) 95 03/11/20 04:00 59 03/11/20 02:27 128/70 03/11/20 00:00 97.7 64 18 128/70 (89) 94 03/11/20 00:00 60 03/10/20 21:00 Room Air 03/10/20 20:32 62 131/72 03/10/20 20:00 97.7 66 18 115/53 (73) 93 03/10/20 20:00 63 03/10/20 16:00 96.8 64 18 131/72 (91) 94 03/10/20 16:00 62 03/10/20 12:00 61 03/10/20 12:00 97.3 62 18 140/49 (79) 96 03/10/20 10:31 65 135/61 Intake and Output 03/10/20 03/11/20 19:00 07:00 Intake Total 1320 ml 250 ml Balance 1320 ml 250 ml Intake Oral 720 ml 250 ml IV Total 600 ml # Voids 4 1 # Bowel Movements 1 Height (Feet): 5 Height (Inches): 7.00 Weight (Pounds): 118 Objective General Appearance: WD/WN, alert, less confused. thin EENT: normal ENT inspection Neck: supple Cardiovascular: normal peripheral pulses, normal rate, regular rhythm Respiratory/Chest: lungs clear, normal breath sounds, no respiratory distress Abdomen: normal bowel sounds, non tender, soft, no organomegaly, no mass Extremities: normal range of motion, non-tender Edema: no edema noted Arm (L), no edema noted Arm (R), no edema noted Leg (L), no edema noted Leg (R), no edema noted Pedal (L), no edema noted Pedal (R), no edema noted Generalized Neurologic: hood maker II-XII grossly normal, alert, oriented x 3 Skin: normal pigmentation Lymphatic: normal anterior cervical (L), normal anterior cervical (R), normal posterior cervical (L), normal posterior cervical (R), normal submandibular (L) , normal submandibular (R), normal supraclavicular (L), normal supraclavicular ( R), normal axillary (L), normal axillary (R), normal inguinal (L), normal inguinal (R), normal other Larry Martinez MD Mar 11, 2020 09:27
--- NOTE | 2020-03-11 09:43 | NUR ---
DISCHARGE PLANNING PATIENT HAS BEEN REFERRED BACK TO [facility] P: [phone]- F: [phone] Addendum: 03/11/20 at 1038 by JAZLYN JOEL LVN LVN S/W CHRISTEL AT [facility] ON . CONFIRMED RECEIPT OF INQUIRY. CONFIRMED PATIENT ACCEPTED TO RETURN TO BED 40-A [facility]ILLED [facility] AMBUL[facility] TRANSPORTATION SCHEDULED WITH [facility] EXT 5655 WITH ETA @ 1200 PM RN INFORMED
[2020-03-11 10:34] LABS: HEMATOCRIT 34.4 % (37.0-47.0); HEMOGLOBIN 11.6 G/DL (12.0-16.0); MEAN CORPUSCULAR VOLUME 80 FL (80-99); PLATELET COUNT 232 K/UL (150-450); RED CELL DISTRIBUTION WIDTH 13.2 % (11.6-14.8); WHITE BLOOD COUNT 9.9 K/UL (4.8-10.8)
[2020-03-11 10:52] LABS: ANION GAP 11 mmol/L (5-15); BLOOD UREA NITROGEN 8 mg/dL (7-18); CALCIUM 8.7 MG/DL (8.5-10.1); CARBON DIOXIDE 22 MMOL/L (21-32); CHLORIDE 108 MMOL/L (98-107); CREATININE 0.8 MG/DL (0.55-1.30); POTASSIUM 3.6 MMOL/L (3.5-5.1); SODIUM 141 MMOL/L (136-145)
--- NOTE | 2020-03-11 11:00 | NUR ---
NURSE NOTES: Received order to transfer patient back to previous SNF, called [facility] at [phone], report given to Cecily CANDELARIA. assigned room number 40 "A". transportation arranged by sourav 12:00 pecan picker time. RN informed patient of the transfer. [facility] will f[facility]u as needed. [facility] [phone]
--- NOTE | 2020-03-11 11:09 | Pulmonology Progress Note ---
Assessment/Plan Assessment/Plan 1. Diabetes out of control. 2. Hyperosmotic nonketotic state. 3. Lactic acidemia. 4. Metabolic acidosis. 5. Leukocytosis. 6. Possible sepsis. 7. Hemoconcentration. 8. COPD per history. No significant respiratory distress at this time. 9. History of CAD. Chest x-ray is negative. PLAN overall improved off antibiotics respiratory status stable low oxygen needs follow up for change and recommend dc planning to snf today impression, plan, and exam edited and reviewed in detail care discussed with RN Subjective ROS Limited/Unobtainable: Yes Constitutional: Reports: no symptoms Gastrointestinal/Abdominal: Reports: no symptoms Psychiatric: Reports: other - on restraint Musculoskeletal: Denies: pain Allergies: Coded Allergies: No Known Allergies (Unverified , 03/01/20) All Systems: reviewed and negative except above Subjective care noted remains confused d/w nursing no distress COVID negative cleared for DC Objective Last 24 Hour Vital Signs Date Time Temp Pulse Resp B/P (MAP) Pulse Ox O2 Delivery O2 Flow Rate FiO2 03/11/20 08:47 87 138/74 03/11/20 08:00 101.6 87 19 138/74 (95) 97 03/11/20 04:00 97.8 60 18 132/63 (86) 95 03/11/20 04:00 59 03/11/20 02:27 128/70 03/11/20 00:00 97.7 64 18 128/70 (89) 94 03/11/20 00:00 60 03/10/20 21:00 Room Air 03/10/20 20:32 62 131/72 03/10/20 20:00 97.7 66 18 115/53 (73) 93 03/10/20 20:00 63 03/10/20 16:00 96.8 64 18 131/72 (91) 94 03/10/20 16:00 62 03/10/20 12:00 61 03/10/20 12:00 97.3 62 18 140/49 (79) 96 Intake and Output 03/10/20 03/11/20 19:00 07:00 Intake Total 1320 ml 250 ml Balance 1320 ml 250 ml Intake Oral 720 ml 250 ml IV Total 600 ml # Voids 4 1 # Bowel Movements 1 Objective WDWN NAD reduced breath sounds bilaterally without rhonchi or wheeze [id number] without MRG NABS nontender no HSM no CC mild edema nonfocal confused reviewed and edited HEENT: mucous membranes moist Abdomen: soft, non tender Extremities: no edema Neurologic/Psychiatric: alert, responsive Laboratory Tests 03/11/20 10:15: White Blood Count 9.9, Red Blood Count 4.30, Hemoglobin 11.6L, Hematocrit 34.4L , Mean Corpuscular Volume 80, Mean Corpuscular Hemoglobin 26.9L, Mean Corpuscular Hemoglobin Concent 33.6, Red Cell Distribution Width 13.2, Platelet Count 232, Mean Platelet Volume 7.6, Neutrophils (%) (Auto) , Lymphocytes (%) ( Auto) , Monocytes (%) (Auto) , Eosinophils (%) (Auto) , Basophils (%) (Auto) , Neutrophils % (Manual) [Pending], Lymphocytes % (Manual) [Pending], Platelet Estimate [Pending], Platelet Morphology [Pending], Sodium Level 141, Potassium Level 3.6, Chloride Level 108H, Carbon Dioxide Level 22, Anion Gap 11, Blood Urea Nitrogen 8, Creatinine 0.8, Estimat Glomerular Filtration Rate > 60, Glucose Level 154H, Calcium Level 8.7 Current Medications Medications (Trade) Dose Ordered Sig/Roberto Route PRN Reason Start Time Stop Time Status Last Admin Dose Admin Acetaminophen (Tylenol) 650 mg Q4H PRN ORAL mild pain/fever 03/11/20 06:00 03/31/20 17:59 Al Hydroxide/Mg Hydroxide (Mylanta) 30 ml Q4H PRN ORAL Dyspepsia 03/11/20 06:00 03/31/20 17:59 Aripiprazole (Abilify) 5 mg DAILY ORAL 03/11/20 09:00 04/16/20 08:59 03/11/20 08:47 Ascorbic Acid (Vitamin C) 500 mg DAILY ORAL 03/11/20 09:00 04/01/20 08:59 03/11/20 08:47 Aspirin (Ecotrin) 81 mg DAILY ORAL 03/11/20 09:00 04/23/20 08:59 03/11/20 08:47 Atorvastatin Calcium (Lipitor) 20 mg BEDTIME ORAL 03/11/20 21:00 05/30/20 20:59 Dextrose (Dextrose 50%) 25 ml Q30M PRN IV Hypoglycemia 03/11/20 06:00 05/30/20 18:29 Dextrose (Dextrose 50%) 50 ml Q30M PRN IV Hypoglycemia 03/11/20 06:00 05/30/20 18:29 Docusate Sodium (Colace) 100 mg BIDPRN PRN ORAL Constipation 03/11/20 06:00 04/03/20 05:59 Heparin Sodium (Porcine) (Heparin 5000 units/ml) 5,000 units EVERY 12 HOURS SUBQ 03/11/20 09:00 04/19/20 08:59 03/11/20 08:48 Insulin Aspart (NovoLOG) BEFORE MEALS AND HS SUBQ 03/11/20 06:30 05/30/20 20:59 03/11/20 06:17 Insulin Detemir (Levemir) 14 units BEDTIME SUBQ 03/11/20 21:00 06/09/20 20:59 Levothyroxine Sodium (Synthroid) 150 mcg 0630 ORAL 03/11/20 06:30 04/01/20 06:29 03/11/20 06:21 Lorazepam (Ativan) 1 mg Q4H PRN ORAL For Anxiety 03/11/20 06:00 03/18/20 05:59 Metoprolol Tartrate (Lopressor) 50 mg Q12HR ORAL 03/11/20 09:00 06/04/20 08:59 03/11/20 08:47 Mirtazapine (Remeron) 7.5 mg BEDTIME ORAL 03/11/20 21:00 05/30/20 20:59 Multivitamins (Multivitamins) 1 tab DAILY ORAL 03/11/20 09:00 04/01/20 08:59 03/11/20 08:48 Pantoprazole (Protonix) 40 mg Q12HR ORAL 03/11/20 09:00 04/05/20 20:59 03/11/20 08:47 Polyethylene Glycol (Miralax) 17 gm BEDTIME ORAL 03/11/20 21:00 04/03/20 20:59 Russell Goyal MD Mar 11, 2020 11:09
--- NOTE | 2020-03-11 11:26 | Infectious Diseases Prog Note ---
Assessment/Plan Assessment/Plan antibiotics : none A 1. klebsiella esbl UTI s/p rx 2. Diabetes. 3. Hypertension. 4. COVID-19 test negative 4.17.20, 4.23.20 5. COPD. 6. rectal VRE colonization P 1. continue off antibiotics Subjective ROS Limited/Unobtainable: Yes Allergies: Coded Allergies: No Known Allergies (Unverified , 03/01/20) Objective Vital Signs Last 24 Hour Vital Signs Date Time Temp Pulse Resp B/P (MAP) Pulse Ox O2 Delivery O2 Flow Rate FiO2 03/11/20 09:00 Room Air 03/11/20 08:47 87 138/74 03/11/20 08:00 101.6 87 19 138/74 (95) 97 03/11/20 04:00 97.8 60 18 132/63 (86) 95 03/11/20 04:00 59 03/11/20 02:27 128/70 03/11/20 00:00 97.7 64 18 128/70 (89) 94 03/11/20 00:00 60 03/10/20 21:00 Room Air 03/10/20 20:32 62 131/72 03/10/20 20:00 97.7 66 18 115/53 (73) 93 03/10/20 20:00 63 03/10/20 16:00 96.8 64 18 131/72 (91) 94 03/10/20 16:00 62 03/10/20 12:00 61 03/10/20 12:00 97.3 62 18 140/49 (79) 96 Height (Feet): 5 Height (Inches): 7.00 Weight (Pounds): 118 Respiratory/Chest: lungs clear Cardiovascular: normal rate, regular rhythm, no gallop/murmur Abdomen: soft, non tender Extremities: no edema Laboratory Tests Test 03/11/20 10:15 White Blood Count 9.9 K/UL (4.8-10.8) Red Blood Count 4.30 M/UL (4.20-5.40) Hemoglobin 11.6 G/DL (12.0-16.0) L Hematocrit 34.4 % (37.0-47.0) L Mean Corpuscular Volume 80 FL (80-99) Mean Corpuscular Hemoglobin 26.9 PG (27.0-31.0) L Mean Corpuscular Hemoglobin Concent 33.6 G/DL (32.0-36.0) Red Cell Distribution Width 13.2 % (11.6-14.8) Platelet Count 232 K/UL (150-450) Mean Platelet Volume 7.6 FL (6.5-10.1) Neutrophils (%) (Auto) % (45.0-75.0) Lymphocytes (%) (Auto) % (20.0-45.0) Monocytes (%) (Auto) % (1.0-10.0) Eosinophils (%) (Auto) % (0.0-3.0) Basophils (%) (Auto) % (0.0-2.0) Neutrophils % (Manual) Pending Lymphocytes % (Manual) Pending Platelet Estimate Pending Platelet Morphology Pending Sodium Level 141 MMOL/L (136-145) Potassium Level 3.6 MMOL/L (3.5-5.1) Chloride Level 108 MMOL/L (98-107) H Carbon Dioxide Level 22 MMOL/L (21-32) Anion Gap 11 mmol/L (5-15) Blood Urea Nitrogen 8 mg/dL (7-18) Creatinine 0.8 MG/DL (0.55-1.30) Estimat Glomerular Filtration Rate > 60 mL/min (>60) Glucose Level 154 MG/DL (74-106) H Calcium Level 8.7 MG/DL (8.5-10.1) Current Medications Medications (Trade) Dose Ordered Sig/Roberto Route PRN Reason Start Time Stop Time Status Last Admin Dose Admin Acetaminophen (Tylenol) 650 mg Q4H PRN ORAL mild pain/fever 03/11/20 06:00 03/31/20 17:59 Al Hydroxide/Mg Hydroxide (Mylanta) 30 ml Q4H PRN ORAL Dyspepsia 03/11/20 06:00 03/31/20 17:59 Aripiprazole (Abilify) 5 mg DAILY ORAL 03/11/20 09:00 04/16/20 08:59 03/11/20 08:47 Ascorbic Acid (Vitamin C) 500 mg DAILY ORAL 03/11/20 09:00 04/01/20 08:59 03/11/20 08:47 Aspirin (Ecotrin) 81 mg DAILY ORAL 03/11/20 09:00 04/23/20 08:59 03/11/20 08:47 Atorvastatin Calcium (Lipitor) 20 mg BEDTIME ORAL 03/11/20 21:00 05/30/20 20:59 Dextrose (Dextrose 50%) 25 ml Q30M PRN IV Hypoglycemia 03/11/20 06:00 05/30/20 18:29 Dextrose (Dextrose 50%) 50 ml Q30M PRN IV Hypoglycemia 03/11/20 06:00 05/30/20 18:29 Docusate Sodium (Colace) 100 mg BIDPRN PRN ORAL Constipation 03/11/20 06:00 04/03/20 05:59 Heparin Sodium (Porcine) (Heparin 5000 units/ml) 5,000 units EVERY 12 HOURS SUBQ 03/11/20 09:00 04/19/20 08:59 03/11/20 08:48 Insulin Aspart (NovoLOG) BEFORE MEALS AND HS SUBQ 03/11/20 06:30 05/30/20 20:59 03/11/20 06:17 Insulin Detemir (Levemir) 14 units BEDTIME SUBQ 03/11/20 21:00 06/09/20 20:59 Levothyroxine Sodium (Synthroid) 150 mcg 0630 ORAL 03/11/20 06:30 04/01/20 06:29 03/11/20 06:21 Lorazepam (Ativan) 1 mg Q4H PRN ORAL For Anxiety 03/11/20 06:00 03/18/20 05:59 Metoprolol Tartrate (Lopressor) 50 mg Q12HR ORAL 03/11/20 09:00 06/04/20 08:59 03/11/20 08:47 Mirtazapine (Remeron) 7.5 mg BEDTIME ORAL 03/11/20 21:00 05/30/20 20:59 Multivitamins (Multivitamins) 1 tab DAILY ORAL 03/11/20 09:00 04/01/20 08:59 03/11/20 08:48 Pantoprazole (Protonix) 40 mg Q12HR ORAL 03/11/20 09:00 04/05/20 20:59 03/11/20 08:47 Polyethylene Glycol (Miralax) 17 gm BEDTIME ORAL 03/11/20 21:00 04/03/20 20:59 Clau Tinsley MD Mar 11, 2020 11:26
[2020-03-11 12:00] VITALS: BP 130/57
--- NOTE | 2020-03-11 12:15 | NUR ---
NURSE NOTES: Given report to Ambulance crew. pt left the floor with no signs of distress or other issues at this time. - belongings given to ambulance crew. - IV removed prior to d/c.
[2020-03-11] MEDS ORDERED: Miralax 17gm pkt ORAL SCH (21:00)
[2020-03-11] MEDS ORDERED: Atorvastatin 20mg tab ORAL SCH (21:00)
[2020-03-11] MEDS ORDERED: Levemir Flexpen SUBQ SCH ×2 (21:00)
--- NOTE | 2020-03-12 05:15 | Progress Note ---
DATE: 03/11/2020 CARDIOLOGY PROGRESS NOTE SUBJECTIVE: The patient is febrile again, but no shortness of breath. Her cough noted. She remains confused. PHYSICAL EXAMINATION: VITAL SIGNS: Blood pressure 138/74, heart rate 87, respiration rate 20, afebrile. T-max 101.6. LUNGS: Coarse breath sounds with rhonchi. CARDIAC: Regular rhythm and rate. Normal S1, S2. ABDOMEN: Soft. EXTREMITIES: No edema. LABORATORY DATA: Sodium 141, potassium 3.6, bicarb 22, BUN 8, creatinine 0.8. White count 9.9, hemoglobin 11.6. IMPRESSION: 1. Hyperosmotic nonketotic state with diabetes out of control, resolved. 2. Lactic acidosis and metabolic acidosis, corrected. 3. Leukocytosis, resolved. 4. Possible sepsis, stabilized including fever may be due to atelectasis, but no sign of new infection, otherwise ischemic heart disease with stable angina. Following episode of myocardial ischemia. PLAN: 1. Maintain adequate hydration. 2. Continue current cardiovascular medications. 3. Continue observation of antimicrobials and culture for recurring fever spike. No signs of COVID-19 infection. Rory Dickson M.D. DR: AMY JOB#: [id number] CC:
--- NOTE | 2020-03-12 15:52 | Discharge Summary ---
Discharge Summary Discharge Summary _ DATE OF ADMISSION: 03/01/2020 DATE OF DISCHARGE: 03/11/2020 DISCHARGED BY: Dr. Dr. Martinez REASON FOR ADMISSION: 79 years old female with past medical history of diabetes mellitus, hypertension , coronary artery disease with history of GA, COPD, CVA/TIA, dementia, GERD, resident of [facility], was sent for evaluation due to altered mental status. Patient was found to be profoundly hypoglycemic with blood sugar 861 . Anion gap 22. Potassium 5.0. BUN 63, creatinine 1.9. Troponin negative. EKG revealed sinus rhythm, no acute ischemic changes . Chest x-ray revealed no acute cardiopulmonary pathology. Urinalysis was grossly positive for urinary tract infection. Laboratory work-up revealed leukocytosis WBC 18.7 ; stable hemoglobin , hematocrit and platelet count. Septic work-up initiated. Patient received fluids ,pancultured ,started on empiric antibiotic. Patient was also tested for COVID-19 . Patient showed significant improvement in blood sugar with aggressive hydration . Patient subsequently admitted to stepdown unit for further management. CONSULTANTS: ward service supervisor pulmonary Dr. Goyal ID specialist Dr. Tinsley GI specialist Dr. Hoover sap abap developer Dr. Estevez [facility] COURSE: Patient admitted to stepdown unit and was kept in isolation. Patient was on aggressive IV hydration and empiric antibiotics. [facility] medications were resumed. Blood sugar regimen was uptitrated to bring blood pressure and blood sugar under control. Initially patient remained n.p.o.. SNF medication resumed. Antibiotic provided as per ID specialist recommendation. Blood cultures were negative. SARS-CoV-2 by PCR came back not detected. Isolation was discontinued. Urine culture revealed Klebsiella pneumonia ESBL. Repeated SARS-CoV-2 by PCR on was negative as well. Blood sugar was managed with long-acting insulin . Blood sugar stabilized. DVT and GI prophylaxis provided. Venous duplex bilateral lower extremity revealed no evidence of acute DVT. Pulse oximetry remained stable on room air. Bronchodilators were on board as needed. No signs of respiratory distress. Leukocytosis resolved . Patient completed treatment for Klebsiella ESBL UTI. No need for anticoagulation since atrial fibrillation was only paroxysmal . No recurrent atrial fibrillation. Return Clerk recommended to add beta-randall if rate increased . rate remained stable. GILLES inhibitor was added after acute renal failure resolved. Patient had episode of coffee ground emesis. Oral fluids were pushed. Stool for occult blood was negative. Bowel regimen instituted. Hemoglobin and hematocrit remained stable. GI procedure were on hold given stable hemoglobin , hematocrit and negative stool OB. Diet was resumed, and patient was able to tolerate diet. No further episodes of coffee ground emesis. Hyperosmolar nonketotic coma resolved along with encephalopathy. Patient clinically stabilized and was ready for discharge to nursing facility. FINAL DIAGNOSES: Hyperosmotic nonketotic state Suspected COVID-19 infection - ruled out Diabetes mellitus [id number] Hyperglycemic crisis due to diabetes mellitus Lactic acidosis Toxic and metabolic encephalopathy Probably sepsis Pyelonephritis Infection/UTI due to ESBL producing Klebsiella pneumonia Acute kidney injury, likely due to dehydration- resolved Hypernatremia, due to dehydration - resolved Hypertensive heart disease Ischemic cardiomyopathy (no acute ischemia noted) Paroxysmal atrial fibrillation ( no recurrence) COPD Coronary artery disease GERD History of CVA Coffee-ground emesis Psychiatric disorder/schizophrenia DISCHARGE MEDICATIONS: See Medication Reconciliation list. DISCHARGE INSTRUCTIONS: Patient was discharged to the [facility]. Follow up with medical doctor at the facility. I have been assigned to dictate discharge summary for this account. I was not involved in the patient's management. Araseli George NP Mar 12, 2020 15:52
== END 2020-03-11 12:15 | DRG 871 ==
LOC: EDBD 10:37 → EMR 11:23 → 2W 12:51 → EDBEDREQ 16:08 → 2W 16:53 → 2E 03-05 17:36 → 4E 03-11 05:29
DX: A41.9 Sepsis, unspecified organism (principal); E11.00 Type 2 diabetes mellitus with hyperosmolarity without nonketotic hyperglycemic-hyperosmolar coma (NKHHC); G92 Toxic encephalopathy; N12 Tubulo-interstitial nephritis, not specified as acute or chronic; E87.0 Hyperosmolality and hypernatremia; E44.0 Moderate protein-calorie malnutrition; Z68.1 Body mass index [BMI] 19.9 or less, adult; N39.0 Urinary tract infection, site not specified; Z16.12 Extended spectrum beta lactamase (ESBL) resistance; N17.9 Acute kidney failure, unspecified; E11.65 Type 2 diabetes mellitus with hyperglycemia; E86.0 Dehydration; I48.0 Paroxysmal atrial fibrillation; R65.20 Severe sepsis without septic shock; I25.2 Old myocardial infarction; J44.9 Chronic obstructive pulmonary disease, unspecified; B96.1 Klebsiella pneumoniae [K. pneumoniae] as the cause of diseases classified elsewhere; I11.9 Hypertensive heart disease without heart failure; I25.5 Ischemic cardiomyopathy; F20.9 Schizophrenia, unspecified; K21.9 Gastro-esophageal reflux disease without esophagitis; E87.8 Other disorders of electrolyte and fluid balance, not elsewhere classified; E83.39 Other disorders of phosphorus metabolism; I25.118 Atherosclerotic heart disease of native coronary artery with other forms of angina pectoris
CPT/HCPCS: 36415; 71045; 74230; 80048; 80053; 81003; 82150; 82270; 82550; 82553; 82962; 83605; 83690; 83735; 84100; 84443; 84484; 85007; 85025; 87040; 87081; 87086; 87181; 87635; 93005; 93970; 96361; 96365; 96375; 99285; J1815; J2405; J7030; J8499; S5561